=== PATIENT | female | born 1970 | race Caucasian/White ===

== ENCOUNTER 2024-09-02 08:09 | Outpatient (OUT) | payer OTHER, SELFPAY ==
[2024-09-02 09:05] LABS: Basophils Percent Auto 0.3 % (0.2-2.0); Eosinophils Absolute Auto 0.1 10^3/uL (0.0-0.7); Eosinophils Percent Auto 1.6 % (0.9-7.0); Hematocrit 36.2 % (36.0-48.0); Hemoglobin 11.6 g/dL (12.0-16.0); Immature Granulocytes Abs Auto 0.01 10^3/uL (0.00-0.03); Immature Granulocytes Pct Auto 0.1 % (0.0-0.5); Lymphocytes Absolute Auto 0.8 10^3/uL (1.2-3.8); Mean Corpuscular Hemoglobin 27.9 pg (26.7-34.0); Mean Platelet Volume 9.8 fL (9.5-13.5); Monocytes Absolute Auto 0.6 10^3/uL (0.3-0.8); Monocytes Percent Auto 8.2 % (1.7-12.0); Neutrophils Absolute Auto 5.5 10^3/uL (1.4-6.5); Neutrophils Percent Auto 78.8 % (43.0-75.0); Platelet Count 250 10^3/uL (150-450); Red Blood Count 4.16 10^6/uL (4.20-5.40); Red Cell Distribution Width 12.1 % (11.0-15.0)
[2024-09-02 09:17] LABS: Anion Gap 12.4; BUN Creatinine Ratio 15.4; Calcium 8.8 mg/dL (8.5-10.1); Carbon Dioxide 27.8 mmol/L (21.0-32.0); Chloride 103 mmol/L (98-107); Estimated GFR (African America >60 (>=60 mL/min/1.73m^2); Estimated GFR (Non-African Ame >60 (>=60 mL/min/1.73m^2); Potassium 4.2 mmol/L (3.5-5.1); Sodium 139 mmol/L (136-145)
[2024-09-02 09:21] LABS: INR 0.93; Partial Thromboplastin Time 24.6 sec (22.3-36.2); Prothrombin Time 9.9 sec (9.0-11.6)
[2024-09-02 09:22] LABS: Glucose 100 mg/dL (74-106)
--- NOTE | 2024-09-02 09:56 | P.GSHP_ITS ---
History of Present Illness History of Present Illness Chief complaint: right UPJ Stone Narrative: Lolita Lindsey is a 54-year-old female presents to presurgical testing with intermittent complaints of right flank pain she is scheduled with Dr. Herr for right ureteral stone ESWL on September 18, 2024 Review of Systems ROS Narrative REVIEW OF SYSTEMS: Negative except as stated in HPI, ten or more systems reviewed. Constitutional: No fever, chills, weakness ENT: No sore throat or epistaxis Cardiovascular: No edema, chest pain, palpitations, or activity intolerance Respiratory: No shortness of breath, cough, or wheezing Musculoskeletal: No joint pain or swelling Gastrointestinal: No abdominal pain, constipation, diarrhea, or vomiting Genitourinary: No dysuria or hematuria intermittent right flank pain Neurological: No numbness, tingling, weakness, or headache Psychiatric: No mood changes PFSH PFSH Medical History (Updated 09/02/24 @ 10:00 by Zakia De Souza) Arm fracture, left ?S42.302A - Unspecified fracture of shaft of humerus, left arm, initial encounter for closed fracture (ICD-10) Narcolepsy ?G47.419 - Narcolepsy without cataplexy (ICD-10) Breast cancer ?C50.919 - Malignant neoplasm of unspecified site of unspecified female breast (ICD-10) Depression ?F32.A - Depression, unspecified (ICD-10) Anxiety ?F41.9 - Anxiety disorder, unspecified (ICD-10) Kidney stones ?N20.0 - Calculus of kidney (ICD-10) Seasonal allergies ?J30.2 - Other seasonal allergic rhinitis (ICD-10) Hearing loss ?H91.90 - Unspecified hearing loss, unspecified ear (ICD-10) Constipation ?K59.00 - Constipation, unspecified (ICD-10) Heartburn ?R12 - Heartburn (ICD-10) GERD (gastroesophageal reflux disease) ?K21.9 - Gastro-esophageal reflux disease without esophagitis (ICD-10) High cholesterol ?E78.00 - Pure hypercholesterolemia, unspecified (ICD-10) Surgical History (Updated 09/02/24 @ 09:02 by Zakia De Souza) History of arthroscopy of right shoulder ?Z98.890 - Other specified postprocedural states (ICD-10) History of lumpectomy of right breast ?Z98.890 - Other specified postprocedural states (ICD-10) Hx of breast biopsy ?Z98.890 - Other specified postprocedural states (ICD-10) History of colonoscopy ?Z98.890 - Other specified postprocedural states (ICD-10) History of arthroscopy of left shoulder ?Z98.890 - Other specified postprocedural states (ICD-10) History of kyphoplasty ?Z98.890 - Other specified postprocedural states (ICD-10) Family History (Updated 09/02/24 @ 08:41 by Zakia De Souza) Other Family history of Alzheimer's disease Family history of colon cancer Family history of diabetes mellitus Family history of heart disease Family history of hypertension Family history of lung cancer Family history of myocardial infarction Family history of stroke Social History (Updated 09/02/24 @ 08:30 by Zakia De Souza) Within the past year, how often did you have a drink containing alcohol: never Score interpretation: A score less than 3 is consistent with normal alcohol consumption. 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 Highest level of school completed/degree received: some college, no degree Meds Home Medications and Allergies Home Medications ?Medication ?Instructions ?Recorded ?Confirmed ?Type armodafinil 250 mg tablet 250 mg PO DAILY 09/02/24 09/02/24 History atorvastatin 20 mg tablet 20 mg PO DAILY 09/02/24 09/02/24 History cholecalciferol (vit D3) 137.5 mcg 1 tab PO DAILY 09/02/24 09/02/24 History (5,500 unit)-vit K2 200 mcg tablet (DosoKap) famotidine 20 mg tablet 20 mg PO DAILY 09/02/24 09/02/24 History fluoxetine 10 mg capsule 10 mg PO DAILY 09/02/24 09/02/24 History potassium chloride 10 mEq 10 meq PO DAILY 09/02/24 09/02/24 History tablet,extended release(part/cryst) Allergies Allergy/AdvReac Type Severity Reaction Status Date / Time codeine Allergy Mild rash Verified 09/02/24 08:58 pravastatin (From Pravachol) Allergy Mild Muscle Pain Verified 09/02/24 08:58 Exam Narrative Exam Narrative: Constitutional: Awake, alert, comfortable, well-appearing, nontoxic, interactive, vital signs as charted Head: Normocephalic, atraumatic Eyes: Conjunctiva and lids normal to inspection, pupils normal ENT: Tympanic membranes pearly avendaño, nonerythematous, noninjected, naris patent, posterior oropharynx clear, oral mucosa moist Neck: Supple, normal appearance, normal range of motion, no meningeal signs, no lymphadenopathy Respiratory: No respiratory distress, breath sounds clear Cardiovascular: Regular rate and rhythm, strong and regular heart tones Abdomen: Nontender, normal bowel sounds, soft, no CVA tenderness Musculoskeletal: Normal gait, no swelling or edema Skin: No rashes or induration, no lesions, only visible skin inspected Neuro: No neurological deficits, normal sensation Psychiatric: Oriented ?3, normal affect Assessment and Plan Assessment and Plan (1) Right ureteral stone: Plan Right ureteral stone plan is for right ESWL with Dr. Herr scheduled on September 18, 2024
== END 2024-09-02 08:10 | disposition home or self-care (01) ==
LOC: PST 08:10
PROVIDERS: PCP Family Medicine; Visit Provider Urology
DX: Z01.812 Encounter for preprocedural laboratory examination (principal); Z01.818 Encounter for other preprocedural examination; N20.1 Calculus of ureter
CPT/HCPCS: 80048; 85025; 85610; 85730; G0463

== ENCOUNTER 2024-09-18 06:59 | Day surgery (SDC) | payer OTHER, SELFPAY ==
[2024-09-02 08:37] VITALS: BP 105/65; PULSE 93; TEMP 36.5; O2SAT 99; BMI 19.1
[2024-09-18] VITALS (10 sets, daily range): BP systolic 113–125; BP diastolic 69–83; PULSE 70–104; TEMP 36.4–36.6; O2SAT 91–100; BMI 18.7
--- OUTSIDE RECORDS SUMMARY | 2024-09-18 07:02 | XMS_ITS | CCD ---
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 Comment on above: Performed By: #### 2 [id number] #### [facility] [address] [place] [address] Platelets (Bld) [#/Vol] 251.0 E9/L Normal 150.0-500.0 [facility] Comment on above: Performed By: #### 2 [id number] #### [facility] [address] [place] [address] RBC (Bld) [#/Vol] 4.5 E12/L Normal 4.3-5.9 [facility] Comment on above: Performed By: #### 2 [id number] #### [facility] [address] [place] [address] WBC corrected for nucl RBC Auto (Bld) [#/Vol] 12.3 E9/L High 4.0-11.0 [facility] Comment on above: Performed By: #### 2 [id number] #### [facility] [address] [place] [address] ED Clinical Summaryon 2024 ED Clinical Summary ED Clinical Summary [address] [address] ED Clinical Summary Person Information Name: EVE LINDSEY Malena/[facility] Age: 54 Years : 1970 Sex: Female Language: New Zealander PCP: Rell Barbosa DO Marital Status: Visit Id: Visit Reason: Nausea; Chills; Back pain; LOWER BACK AND SIDE PAIN CHILLS Speciality: Acuity: 3 Enc Type: Emergency Med Service: Emergency Arrival: 09/08/2024 03:55:54 Discharge: 09/08/2024 06:42:36 LOS: 000 02:47 Checkin: 09/08/2024 03:55:54 Checkout: 09/08/2024 06:42:36 Dispo Type: Home (Routine DC) EVENTS: Event Name Event Status Request Date/Time Start Date/Time Complete Date/Time Arrive Complete 09/08/2024 03:55:54 09/08/2024 03:55:54 09/08/2024 03:55:54 Document Home Meds Request 09/08/2024 03:55:54 Triage Complete 09/08/2024 03:55:54 09/08/2024 04:06:16 09/08/2024 04:06:16 Registration Complete 09/08/2024 03:59:57 09/08/2024 03:59:57 09/08/2024 03:59:57 Reg Complete Request 09/08/2024 03:59:57 Reg Bed Request Complete 09/08/2024 03:59:57 09/08/2024 03:59:57 09/08/2024 03:59:57 Dr Exam Complete 09/08/2024 04:00:28 09/08/2024 04:00:28 09/08/2024 04:00:28 Registration Start 09/08/2024 04:00:28 09/08/2024 04:06:57 Bed Assign Complete 09/08/2024 04:06:57 09/08/2024 04:06:57 09/08/2024 04:06:57 RN Exam Complete 09/08/2024 04:06:57 09/08/2024 04:15:58 09/08/2024 04:15:58 Pending Labs Complete 09/08/2024 04:11:31 09/08/2024 06:31:30 Lab Complete 09/08/2024 04:11:31 09/08/2024 05:29:37 X-Ray Complete 09/08/2024 04:18:41 09/08/2024 04:52:01 09/08/2024 05:03:34 Meds Admin Complete 09/08/2024 04:18:41 09/08/2024 04:28:49 Wet Read Request 09/08/2024 05:03:34 Pending Labs Complete 09/08/2024 05:06:36 09/08/2024 05:06:36 09/08/2024 05:29:37 Lab Complete 09/08/2024 05:06:36 09/08/2024 05:06:36 09/08/2024 05:29:37 Meds Admin Cancel 09/08/2024 05:33:59 09/08/2024 05:36:33 Meds Admin Complete 09/08/2024 05:36:33 09/08/2024 05:42:26 Pending Labs Complete 09/08/2024 06:17:47 09/08/2024 06:17:47 09/08/2024 06:17:47 Discharge Complete 09/08/2024 06:36:05 09/08/2024 06:43:43 09/08/2024 06:43:43 Transfer Complete 09/08/2024 06:43:43 09/08/2024 06:43:43 09/08/2024 06:43:43 ADDRESS: [address] [place] [phone] PHYS DOC NOTES: MEDICAL INFORMATION: Prescriptions Given: New Medications [id number], [address] [place], [place] [id number], [phone] oxycodone (oxyCODONE 5 mg Tab) 1 Tablets By Mouth every 6 hours as needed for pain for 3 Days. Refills: 0. tamsulosin (Flomax 0.4 mg Cap) 1 Capsules By Mouth every day. Refills: 0. Medications to Continue Taking That Have Changed [facility]? [facility]ORE #[id number], [address] [place], [place] [id number], [phone] START: ondansetron (Zofran ODT 4 mg Tab-Dis) 1 Tablets By Mouth every 6 hours. Refills: 0. Other Medications START: ondansetron (Zofran 8 mg Tab) 1 Tablets By Mouth every 8 hours. Refills: 1. Medications to Continue with No Changes Other Medications armodafinil (armodafinil 250 mg oral tablet) 1 Tablets. atorvastatin (Lipitor 20 mg Tab) 1 Tablets By Mouth once a day (at bedtime). Refills: 3. famotidine (famotidine 20 mg Tab) 1 Tablets. fluoxetine (FLUoxetine 10 mg Cap) Misc Prescription (cephalexin (Keflex 500 mg Cap)) 1 Capsules every 6 hours. multivitamin (Dosokap oral tablet) naproxen (naproxen 500 mg Tab) 1 Tablets By Mouth 2 times a day. potassium chloride (potassium chloride 10 mEq Cap-ER) 2 Capsules By Mouth every day. Refills: 1. PATIENT EDUCATION INFORMATION: Instructions: Kidney Stones, [id number]-Bbjv Follow up: With: Address: When: Paul CABRERA [address] [place] [id number] Business (1) In 3 days 09/11/2024 Comments: Take the Flomax once daily can use the pain medication, nausea medication as prescribed as needed for pain and nausea. Please reach out to Dr. Cabrera office to see if they can possibly move your procedure up. Please return to the ED if your symptoms worsen or if your pain becomes uncontrollable. With: Address: When: Rell Barbosa [facility] Daren Brown, Janel , [facility] [address] [place] [address] Business (1) In 3 days DIAGNOSIS: Renal colic on right side Normal [facility] ED Note-Physicianon 09-08-19 ED Note-Physician ED Note-Physician Basic Information Time Seen: Caitlin Adame DO 09/08/2024 04:00 Chief Complaint Pt. reports pain from know kidney stone. She stated she took tylenol for pain but has norco at home from previous ED visit Jul 9. Pt. states she is scheduled for surgery next week but could not tolerate the pain. Pt. also reports chills that started today History of Present Illness Patient is a 54-year-old female with past medical history of hyperlipidemia, breast cancer, right ureteral stone presenting to the ED for evaluation of right flank pain. Patient states the pain started flaring up tonight took Tylenol however did not take the [place] that she has at home for the kidney stone pain she is was told she cannot take these 2 together. Patient states she is scheduled for a surgery next week for removal of the stone with Dr. Cabrera. Patient also is complaining of some chills. Denies any nausea, chest pain, dizziness or lightheadedness. Review of Systems A 10 point review of systems is negative except as noted above. Medical and Surgical History: Reviewed and noted Social history: Lives at home Tobacco: Denies Physical Exam Vitals & Measurements T: 36.5 ???C(Oral) HR: 87(Peripheral) RR: 18 BP: 115/71 SpO2: 98% HT: 149 cm WT: 42.6 kg BMI: 19.19 General: Well developed, non toxic appearing, no acute distress HEENT: Head atraumatic, Mucosa moist, hearing grossly normal Neck: No JVD, tracheal deviation Cardiac: Regular rate, rhythm, no murmurs, or gallops, 2+ radial pulses Respiratory: Lungs clear to auscultation B/L, normal respiratory effort Abdomen: Soft non tender, no rebound or guarding, no peritoneal signs right CVA tenderness Extremities: No edema noted in the LE B/L, no tenderness to palpation Neurologic: Alert and oriented, speech clear Skin: No rashes or lesions Psych: Appropriate mood and behavior Medical Decision Making MEDICAL DECISION MAKING Number and Complexity of Problems Differential Diagnosis: [] [facility] Data External documents reviewed: [] My EKG interpretation: [] My CT interpretation: [] My X-ray interpretation: [] My Ultrasound interpretation: [] Decision rules/scores evaluated: [] Discussed with: [] Treatment and Disposition ED Course: Patient is a 54-year-old female presenting to the ED for evaluation of right flank pain. Patient is nontoxic and on arrival, no acute distress. Due to her complaints laboratory evaluation is obtained, abdominal x-ray is ordered to evaluate for location of stone. Patient is given morphine, Zofran in the ED for her symptoms. Patient's laboratory evaluation reveals slight leukocytosis of 12.3 otherwise is unremarkable, urinalysis without signs of infection. Patient continued complain of pain after morphine is given Toradol with improvement of her symptoms. I did offer admission for possible procedure today versus discharge home patient states she would prefer to go home. She is advised to reach out to Dr. Cabrera office to see if the procedure can be moved forward. She is to return to the ED for any new or worsening symptoms. She is discharged home with oxycodone, Flomax, Zofran. Shared decision making: [] Code status: [] Assessment/Plan Renal colic on right side (N23: Unspecified renal colic) Ordered: oxycodone, 5 mg = 1 tab(s), Oral, q6hr, PRN for pain, X 3 day(s), # 10 tab(s), Refills(s) 0, Pharmacy: [facility] #[id number], 149, cm, 09/08/24 4:08:00 EST, Height/Length Dosing, 42.6, kg, 09/08/24 4:08:00 EST, Weight Dosing Orders: ketorolac, 30 mg = 1 mL, Injection, IntraMuscular, Once, Stop date 09/08/24 5:36:00 EST, STAT, Start date 09/08/24 5:36:00 EST, 09/08/24 5:36:00 EST morphine, 4 mg = 1 mL, Injection, IntraMuscular, Once, Stop date 09/08/24 4:17:00 EST, STAT, Start date 09/08/24 4:17:00 EST, 09/08/24 4:17:00 EST ondansetron, 4 mg = 1 tab(s), Tab-Dis, Oral, Once, Stop date 09/08/24 4:18:00 EST, STAT, Start date 09/08/24 4:18:00 EST, 09/08/24 4:18:00 EST ondansetron, 4 mg = 1 tab(s), Oral, q6hr, # 12 tab(s), Refills(s) 0, Pharmacy: [facility] #[id number], 149, cm, 09/08/24 4:08:00 EST, Height/Length Dosing, 42.6, kg, 09/08/24 4:08:00 EST, Weight Dosing tamsulosin, 0.4 mg = 1 cap(s), Oral, Daily, # 10 cap(s), Refills(s) 0, [id number], 149, cm, 09/08/24 4:08:00 EST, Height/Length Dosing, 42.6, kg, 09/08/24 4:08:00 EST, Weight Dosing Basic Metabolic Panel CBC w/ Auto Diff eGFR Extra Blue Tube Extra SST Tube UA with Cult Rflx XR Abdomen 1 View Medications Administered Given ketorolac 60 mg/2 mL Injection, 30 mg, IntraMuscular morphine 4 mg/mL Inj, 4 mg, IntraMuscular Zofran ODT 4 mg Tab-Dis, 4 mg, Oral Disposition Plan Discharge Prescription List Prescriptions Flomax 0.4 mg Cap, 0.4 mg= 1 cap(s), Oral, Daily oxyCODONE 5 mg Tab, 5 mg= 1 tab(s), Oral, q6hr, PRN Zofran ODT 4 mg Tab-Dis, 4 mg= 1 tab(s), Oral, q6hr Follow-up With When Contact Infor (more content not included)... Normal [facility] Comment on above: Result Comment: Elec tronically Signed By: Caitlin Adame DO\.br\Date and Time Signed: 09/08/24 06:37 EST ED Patient Summaryon 025 ED Patient Summary ED Patient Summary [place] [id number] Patient Discharge Instructions Person Information Name: EVE LINDSEY Age: 54 Years Arrival Date: 09/08/2024 03:55:54 Discharge Diagnosis: Renal colic on right side Primary Care Physician: Rell Barbosa DO Provider Information Primary Provider: Caitlin Adame DO Advanced Business Travel Consultant:None The exam and treatment you received in the Emergency Department were for an urgent problem and are not intended as complete care. It is important that you follow up with a doctor, nurse practitioner, or physician???s business services assistant for ongoing care. If your symptoms become worse or you do not improve as expected and you are unable to reach your usual health care provider, you should return to the Emergency Department. We are available 24 hours a day. EVE LINDSEY has been given the following list of patient education materials, prescriptions and follow-up instructions: Follow-up Instructions: With: Address: When: Paul CABRERA [address] [place] [address] [facility] (1) In 3 days 09/11/2024 Comments: Take the Flomax once daily can use the pain medication, nausea medication as prescribed as needed for pain and nausea. Please reach out to Dr. Cabrera office to see if they can possibly move your procedure up. Please return to the ED if your symptoms worsen or if your pain becomes uncontrollable. With: Address: When: Rell Barbosa [address] [place], [place] [address]kaden Brown, [facility], [address] [address] [facility] (1) In 3 days In the event that this physician does not participate in your insurance network, please consult with your insurance company to find a nearby participating provider. Patient Education Materials: Kidney Stones, Rojb-mx-[id number] A MESSAGE TO ALL PATIENTS REGARDING OPIOIDS PRESCRIPTION OPIOIDS: WHAT YOU NEED TO KNOW Prescription opioids can be used to help relieve ywlabfiu-zj-oqzpsa pain and are often prescribed following a surgery or injury, or for certain health conditions. These medications can be an important part of the treatment but also come with serious risks. It is important to work with your healthcare provider to make sure you are getting the safest, most effective care. WHAT ARE THE RISKS AND SIDE EFFECTS OF OPIOID USE? Prescription opioids carry serious risks of addiction and overdose, especially with prolonged use. An opioid overdose, often marked by slowed breathing, can cause sudden . The use of prescription opioids can have a number of side effects as well, even when taken as directed: ??? Tolerance???meaning you might need to take more of the medication for the same pain relief ??? Physical dependence???meaning you have symptoms of withdrawal when a medication is stopped ??? Increased sensitivity to pain ??? Constipation ??? Nausea, vomiting, and dry mouth ??? Sleepiness and dizziness ??? Confusion ??? Depression ??? Low levels of testosterone that can result in lower sex drive, energy, and strength ??? Itching and sweating RISKS ARE GREATER WITH: ??? History of drug misuse, substance use disorder, or overdose ??? Mental health conditions (such as depression or anxiety) ??? Sleep apnea ??? Older age (65 years and older) ??? Avoid alcohol while taking prescription opioids. Also, unless specifically advised by your health care provider, medications to avoid include: ??? Benzodiazepines (such as Xanax or Valium) ??? Muscle relaxants (such as Soma or Flexeril) ??? Hypnotics (such as Ambien or Lunesta) ??? Other prescription opioids KNOW YOUR OPTIONS Talk to your health care provider about ways to manage your pain that don???t involve prescription opioids. Some of these options may actually work better and have fewer risks and side effects. Options may include: ??? Pain relievers such as acetaminophen, ibuprofen, and naproxen ??? Some medication that are also used for depression or seizures ??? Physical therapy and exercise ??? Cognitive behavioral therapy, a psychological, goal-directed approach, in which patients learn how to modify physical, behavioral, and emotional triggers of pain and stress. IF YOU ARE PRESCRIBED OPIOIDS FOR PAIN: ??? Never take opioids in greater amounts or more often than prescribed. ??? Follow up with your primary health care provider. o Work together to create a plan on how to manage your pain. o Talk about ways to help manage your pain that don???t involve prescription opioids. o Talk about any and all concerns and side effects. ??? Help prevent misuse and abuse o Never sell or share prescription opioids. o Never use another person???s prescription opioids. ??? Store prescription opioids in a secure place and out of reach of others (this may include visitors, children, friends, and fami (more content not included)... Normal [facility] Extra Blueon 09-08-2024 Tube Collected Plasma Yes Invalid Interpretation Code [facility] Comment on above: Performed By: #### 1 [id number] #### [facility] [address] [address] UA with Cult Rflxon 09-08-19 25 Bilirubin Ql (U) Negative Normal Negative [facility] Comment on above: Performed By: #### 4 [id number] #### [facility] [address] [place] [address] Clarity (U) Clear Normal Clear [facility] Comment on above: Performed By: #### 4 [id number] #### [facility] [address] [place] [address] Color (U) Light-Yellow Normal Yellow [facility] Comment on above: Result Comment: Micr oscopic readings are only performed on those samples that meet specific criteria set forth by [facility]. Performed By: #### 4 [id number] #### [facility] [address] [place] [address] Glucose Ql (U) Negative Normal Negative [facility] Comment on above: Performed By: #### 4 [id number] #### [facility] [address] [place] [address] Hemoglobin Auto test strip (U) [Mass/Vol] 2+ mg/dL Abnormal Negative [facility] Comment on above: Performed By: #### 4 [id number] #### [facility] [address] [place] [address] Ketones Auto test strip Ql (U) 1+ mg/dL Abnormal Negative [facility] Comment on above: Performed By: #### 4 [id number] #### [facility] [address] [place] [address] Leukocyte esterase Auto test strip Ql (U) Negative Normal Negative [facility] Comment on above: Performed By: #### 4 [id number] #### [facility] [address] [place] [address] Mucus Auto Ql (U) Trace Normal Negative [facility] Comment on above: Performed By: #### 4 [id number] #### [facility] [address] [place] [address] Nitrite Auto test strip Ql (U) Negative Normal Negative [facility] Comment on above: Performed By: #### 4 [id number] #### [facility] [address] [place] [address] pH (U) 5.5 [pH] Invalid Interpretation Code 5.0-9.0 [facility] Comment on above: Performed By: #### 4 [id number] #### [facility] [address] [place] [address] Protein Ql (U) Negative Normal Negative [facility] Comment on above: Performed By: #### 4 [id number] #### [facility] [address] [place] [address] RBC Ql (U) >75 Abnormal 0-3 [facility] Comment on above: Performed By: #### 4 [id number] #### [facility] [address] [place], [place] [id number] Specific gravity (U) [Rel density] 1.020 Invalid Interpretation Code 1.005-1.030 [facility] Comment on above: Performed By: #### 4 [id number] #### [facility] [address] [place], [place] [id number] Urobilinogen (U) [Mass/Vol] Negative Normal Negative [facility] Comment on above: Performed By: #### 4 [id number] #### [facility] [address] [place], [place] [id number] WBC Auto (Urine sed) [#/Area] 0-5 Normal 0-5 [facility] Comment on above: Performed By: #### 4 [id number] #### [facility] [address] [place], [place] [address] Type of Urine collection method Clean Catch Normal [facility] Comment on above: Performed By: #### 4 [id number] #### [facility] [address] [place] [address] XR Abdomen 1 Viewon 09-08-19 XR Abdomen 1 View Exam Date/Time: 09/08/2024 05:03 EST Reason for Exam: R ureteral stone;Kidney stone Report IMPRESSION: RIGHT URETERAL CALCULUS. CHOLELITHIASIS. L1 KYPHOPLASTY. CLINICAL HISTORY: Kidney stone, R ureteral stone COMPARISON: CT abdomen pelvis, 07/21/2024. KUB, 08/11/2024. FINDINGS: Gas and stool in colon. Gas in small bowel. No focal or diffuse small bowel dilatation no mass effect. L1 kyphoplasty. Calculus in gallbladder. Previously visualized calculus overlying right L3 transverse process has migrated inferiorly, and now overlies right ischium. Ordering Provider: Caitlin Adame FINAL REPORT Dictated: 09/08/2024 10:46 am Imtiaz Escobedo MD Signed (Electronic Signature): 09/08/2024 10:46 am Signed by: Imtiaz Escobedo MD Transcribed by: DAQUAN Technologist: ALISON Technical Comments Radiation Dose: Ka,r in mGy = na DAP = na Normal [facility] eGFRon 09-08-2024 eGFR 88 mL/min/1.73 m2 Normal >=59 [facility] Comment on above: Performed By: #### 1 [id number] #### [facility] [address] [place] [address] Pulmonary Function Studieson 09-01-2024 Pulmonary Function Studies Pulmonary Function Studies PULMONARY FUNCTION TEST: 08/27/2024 REQUESTING PROVIDER: Rell Barbosa D.O. REASON FOR TESTING: Shortness of breath. Spirometry results are acceptable and reproducible. FVC was 2.29 liters or 90% of predicted. FEV1 was 1.78 liters or 85% of predicted with a ratio of 78%. There was no significant change with the administration of bronchodilators. Lung volumes showed a total lung capacity of 81% of predicted, residual volume of 89% of predicted with a ratio of 34%. Diffusion capacity for carbon monoxide was 69% of predicted and when adjusted to alveolar volume at 72% of predicted. IMPRESSION: Pulmonary function test results are suggestive of a mild degree of restrictive lung disease with a mild decrease in the diffusion capacity. This can be seen in intrinsic lung disease such as pulmonary fibrosis. Clinical correlation is recommended. READ BY: Dain Mcgregor M.D. ca Dictated: 08/28/2024 [id number] Transcribed: 08/31/2024 cc:Rell Barbosa D.O. Normal [facility] Comment on above: Result Comment: Elec tronically Signed By: Balbir HENRY, Dain Hearn\.br\Date and Time Signed: 09/01/24 09:13 EST ED Note-Physicianon 08-23-19 ED Note-Physician ED Note-Physician Basic Information Time Seen: Ari KIRKLAND, Eve Estefania. 08/21/2024 10:11 Chief Complaint pt has had multiple falls in the past couple of days d/t the weather. pt denies thinners. pt c/o right foot and right hip pain. History of Present Illness Patient is a 54-year-old female with a history of urolithiasis, GERD, and hyperlipidemia who presents to the ED with foot and hip pain that occurred following numerous mechanical falls within the past 3 days. Patient states each of these falls have been mechanical as she is slipping on ice and snow while walking out of her house. She states each time she has landed on her right hip. Patient denies hitting her head or loss of consciousness. She states she has been able to get up from each of these falls by herself without assistance. She denies any prolonged periods of laying in the snow. Patient states outside of the snow, the patient has not had any falls. Patient denies neck pain, back pain, chest pain, changes in vision, or shortness of breath. She states she is scheduled to have a right ESWL next month for a ureteral stone. Review of Systems A 10 point review of systems is negative except as noted above. Medical and Surgical History: Reviewed and noted Social history: Lives at home Family History: Reviewed. Tobacco: Denies Physical Exam Vitals & Measurements T: 36.7 ???C(Oral) HR: 87(Peripheral) RR: 18 BP: 118/69 SpO2: 99% HT: 149.8 cm WT: 44.7 kg BMI: 19.92 Nurses note and vital signs reviewed and noted. General: The patient appears well and in no apparent distress. Patient is resting comfortably on cart. GCS = 15. Skin: Warm, dry, no pallor noted. Head: Normocephalic, atraumatic Neck: Supple, trachea mid-line, no tenderness, no lymphadenopathy. No cervical spinal tenderness. The patient has no step-offs or crepitus noted Eyes: PERRLA, EOMI ENT: No coello sign, no raccoon eyes, no blood in posterior oropharynx, no dental injuries Cardiovascular: Regular Rate and Rhythm, normal peripheral perfusion Respiratory: no distress, no accessory muscle use, no obvious wheezing Chest Wall: no tenderness, no flail chest, contusion, abrasion, or signs of trauma. Back: Back has no evidence of trauma, including contusion, abrasion, swelling or ecchymosis. The patient had no evidence of step-offs or crepitus noted. No tenderness to palpation. Musculoskeletal: normal ROM, tenderness to palpation to the right second, third, and fourth toes with ecchymosis to the proximal dorsal aspects, limited flexion and extension of these toes secondary to pain, no swelling. Neurovascularly intact. Moves all four extremities in all modalities with 5/5 strength. GI: Soft, no tenderness to palpation, no masses appreciated. No rebound, guarding, or rigidity noted. 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 Psychiatric: Cooperative Medical Decision Making Patient is a 54-year-old female with a history of urolithiasis, GERD, and hyperlipidemia who presents to the ED with foot and hip pain that occurred following numerous mechanical falls within the past 3 days. Patient is hemodynamically stable and afebrile. She denies the need for pain medication. EKG shows sinus rhythm without ischemic changes. While the patient states these falls have all been mechanical secondary to the snow/ice, lab work is obtained to rule out other etiologies as there have been multiple falls. Lab work is reviewed and does not show any significant changes from baseline aside from a potassium of 3.2. She is given oral potassium in the ED. hip/pelvic does not show any acute osseous abnormalities. Chest x-ray and right foot x-ray interpreted by myself do not show any acute abnormalities. Patient was updated on the results. She is given a postop shoe for comfort. I discussed disposition with the patient who felt comfortable being discharged home. Patient was educated on falling precautions. She denies the need for pain medication. She will call to schedule a follow-up appoint with her primary care provider next 2 to 3 days. She was advised to return to the ED with any new or worsening symptoms. Patient is agreeable with the plan and all questions were answered. Assessment/Plan Accidental fall (W19.XXXA: Unspecified fall, initial encounter) Acute pain of right hip (M25.551: Pain in right hip) Sprain of fourth toe of right foot, (S93.504A: Unspecified sprain of right lesser toe(s), initial encounter)Sprain of second toe of right foot, (S93.504A: Unspecified sprain of right lesser toe(s), initial encounter)Sprain of third toe, right Orders: potassium chloride, 20 mEq = 1 tab(s), Tab-ER, Oral, Once, Stop date 08/21/24 11:46:00 EST, STAT, Start date 08/21/24 11:46:00 EST, 08/21/24 11:46:00 EST Apply Post-Op Shoe Basic Metabolic Panel CBC w/ Auto Diff ECG 12 Lead Adult ED Cardiac Monitoring eGFR Extra SST Tube Magnesium Level Oxygen Saturation Oxygen Ther (more content not included)... Normal [facility] Comment on above: Result Comment: Elec tronically Signed By: Eve Chapman PA-C\.br\Date and Time Signed: 08/21/24 19:28 EST\.br\Electronically Co-Signed By: Eve Chapman PA-C\.br\Date and Time Co-Signed: 08/21/24 19:29 EST\.br\Electronically Co-Signed By: Naye Tijerina M.D.\.br\Date and Time Co-Signed: 08/23/24 15:15 EST BMPon 08-21-2024 Anion gap [Moles/Vol] 13 mmol/L Normal 6-16 [facility] Comment on above: Performed By: #### 2 [id number] #### [facility] [address] [place] [address] Calcium [Mass/Vol] 9.2 mg/dL Normal 8.9-11.1 [facility] Comment on above: Performed By: #### 2 [id number] #### [facility] [address] [place] [address] Chloride [Moles/Vol] 106 mmol/L Normal 101-111 [facility] Comment on above: Performed By: #### 2 [id number] #### [facility] [address] [place] [address] CO2 [Moles/Vol] 25 mmol/L Normal 21-31 [facility] Comment on above: Performed By: #### 2 [id number] #### [facility] [address] [place] [address] Creatinine [Mass/Vol] 0.5 mg/dL Normal 0.5-1.3 [facility] Comment on above: Performed By: #### 2 [id number] #### [facility] [address] [place] [address] Glucose [Mass/Vol] 84 mg/dL Normal 55-199 [facility] Comment on above: Performed By: #### 2 [id number] #### [facility] [address] [place] [address] Potassium [Moles/Vol] 3.2 mmol/L Low 3.5-5.3 [facility] Comment on above: Performed By: #### 2 [id number] #### [facility] [address] [place] [address] Sodium [Moles/Vol] 141 mmol/L Normal 135-145 [facility] Comment on above: Performed By: #### 2 [id number] #### [facility] [address] [place] [address] Urea nitrogen [Mass/Vol] 10 mg/dL Normal 5-21 [facility] Comment on above: Performed By: #### 2 [id number] #### [facility] [address] [place] [address] Urea nitrogen/Creatinine [Mass ratio] 20 No Units Normal 10-20 [facility] Comment on above: Performed By: #### 2 [id number] #### [facility] [address] [place] [address] CBC w/ Auto Diffon 5 Basophils/100 WBC (Bld) 0.2 % Normal 0.0-2.0 [facility] Comment on above: Performed By: #### 2 [id number] #### [facility] [address] [place] [address] Basophils/Leukocyte s Auto (Bld) [Pure # fraction] 0.0 E9/L Normal 0.0-0.2 [facility] Comment on above: Performed By: #### 2 [id number] #### [facility] [address] [place] [address] Eosinophils (Bld) [#/Vol] 0.1 E9/L Normal 0.0-0.5 [facility] Comment on above: Performed By: #### 2 [id number] #### [facility] [address] [place] [address] Eosinophils/100 WBC (Bld) 1.4 % Normal 0.0-8.0 [facility] Comment on above: Performed By: #### 2 [id number] #### [facility] [address] [place] [address] Erythrocyte distribution width (RBC) [Ratio] 12.7 % Normal 10.9-14.2 [facility] Comment on above: Performed By: #### 2 [id number] #### [facility] [address] [place] [address] Hematocrit (Bld) [Volume fraction] 35.0 % Normal 34.0-46.0 [facility] Comment on above: Performed By: #### 2 [id number] #### [facility] [address] [place] [address] Hemoglobin (Bld) [Mass/Vol] 11.9 g/dL Low 12.0-16.0 [facility] Comment on above: Performed By: #### 2 [id number] #### [facility] [address] [place] [address] Lymphocytes (Bld) [#/Vol] 0.9 E9/L Low 1.0-4.0 [facility] Comment on above: Performed By: #### 2 [id number] #### [facility] [address] [place] [address] Lymphocytes/100 WBC (Bld) 14.0 % Normal 14.0-50.0 [facility] Comment on above: Performed By: #### 2 [id number] #### [facility] [address] [place] [address] MCH (RBC) [Entitic mass] 28.6 pg Normal 27.0-34.0 [facility] Comment on above: Performed By: #### 2 [id number] #### [facility] [address] [place] [address] MCHC (RBC) [Mass/Vol] 34.1 g/dL Normal 31.4-36.0 [facility] Comment on above: Performed By: #### 2 451001 #### [facility] [address] [place] [address] MCV (RBC) [Entitic vol] 83.9 fL Normal 80.0-100.0 [facility] Comment on above: Performed By: #### 2 [id number] #### [facility] [address] [place] [address] Monocytes (Bld) [#/Vol] 0.5 E9/L Normal 0.2-1.0 [facility] Comment on above: Performed By: #### 2 [id number] #### [facility] [address] [place] [address] Neutrophils (Bld) [#/Vol] 4.7 E9/L Normal 2.0-7.5 [facility] Comment on above: Performed By: #### 2 [id number] #### [facility] [address] [place] [address] Neutrophils/100 WBC (Bld) 76.5 % High 36.0-75.0 [facility] Comment on above: Performed By: #### 2 837192 #### [facility] [address] [place] [address] Platelet 236.0 E9/L Normal 150.0-500.0 [facility] Comment on above: Performed By: #### 2 [id number] #### [facility] [address] [place] [address] Platelet mean volume (Bld) [Entitic vol] 7.8 fL Normal 6.4-10.8 [facility] Comment on above: Performed By: #### 2 [id number] #### [facility] [address] [place] [address] RBC (Bld) [#/Vol] 4.2 E12/L Low 4.3-5.9 [facility] Comment on above: Performed By: #### 2 [id number] #### [facility] [address] [place] [address] WBC corrected for nucl RBC Auto (Bld) [#/Vol] 6.2 E9/L Normal 4.0-11.0 [facility] Comment on above: Performed By: #### 2 [id number] #### [facility] [address] [place] [address] ED Clinical Summaryon 2024 ED Clinical Summary ED Clinical Summary [address] [address] ED Clinical Summary Person Information Name: EVE LINDSEY Malena/[facility] Age: 54 Years : 1970 Sex: Female Language: New Zealander PCP: Rell Barbosa DO Marital Status: Visit Id: Visit Reason: Foot pain-swelling; Hip pain-swelling; Fall; MULTIPLE FALLS THE LAST 2 DAYS, FOOT PAIN, LEG PAIN Speciality: Acuity: 3 Enc Type: Emergency Med Service: Emergency Arrival: 08/21/2024 10:03:03 Discharge: 08/21/2024 13:15:05 LOS: 000 03:12 Checkin: 08/21/2024 10:03:03 Checkout: 08/21/2024 13:15:05 Dispo Type: Home (Routine DC) EVENTS: Event Name Event Status Request Date/Time Start Date/Time Complete Date/Time Arrive Complete 08/21/2024 10:03:03 08/21/2024 10:03:03 08/21/2024 10:03:03 Document Home Meds Request 08/21/2024 10:03:03 Triage Complete 08/21/2024 10:03:03 08/21/2024 10:11:08 08/21/2024 10:11:08 Bed Assign Complete 08/21/2024 10:05:24 08/21/2024 10:05:24 08/21/2024 10:05:24 Dr Exam Complete 08/21/2024 10:05:24 08/21/2024 10:11:38 08/21/2024 10:11:38 RN Exam Complete 08/21/2024 10:05:24 08/21/2024 10:44:03 08/21/2024 10:44:03 Registration Complete 08/21/2024 10:07:15 08/21/2024 10:07:15 08/21/2024 10:07:15 Reg Complete Request 08/21/2024 10:07:15 Reg Bed Request Complete 08/21/2024 10:07:15 08/21/2024 10:07:15 08/21/2024 10:07:15 Registration Request 08/21/2024 10:11:38 Dr Exam Complete 08/21/2024 10:14:12 08/21/2024 10:14:12 08/21/2024 10:14:12 EKG Complete 08/21/2024 10:25:59 08/21/2024 10:49:51 Pending Labs Complete 08/21/2024 10:25:59 08/21/2024 11:53:40 Lab Complete 08/21/2024 10:25:59 08/21/2024 11:13:55 Patient Care Request 08/21/2024 10:25:59 RT Request 08/21/2024 10:25:59 X-Ray Complete 08/21/2024 10:25:59 08/21/2024 10:40:07 08/21/2024 11:20:48 Dr Exam Complete 08/21/2024 10:40:37 08/21/2024 10:40:37 08/21/2024 10:40:37 Pending Labs Complete 08/21/2024 10:49:08 08/21/2024 10:49:08 08/21/2024 11:13:55 Lab Complete 08/21/2024 10:49:08 08/21/2024 10:49:08 08/21/2024 11:13:55 Wet Read Request 08/21/2024 11:20:48 Meds Admin Complete 08/21/2024 11:46:53 08/21/2024 11:56:30 Pending Labs Complete 08/21/2024 12:01:35 08/21/2024 12:01:35 08/21/2024 12:01:36 Patient Care Request 08/21/2024 12:55:32 Discharge Complete 08/21/2024 12:57:31 08/21/2024 13:15:12 08/21/2024 13:15:12 Transfer Complete 08/21/2024 13:15:12 08/21/2024 13:15:12 08/21/2024 13:15:12 ADDRESS: [address] [place] [phone] PHYS DOC NOTES: MEDICAL INFORMATION: Prescriptions Given: Medications to Continue with No Changes Other Medications armodafinil (armodafinil 250 mg oral tablet) 1 Tablets. atorvastatin (Lipitor 20 mg Tab) 1 Tablets By Mouth once a day (at bedtime). Refills: 3. famotidine (famotidine 20 mg Tab) 1 Tablets. fluoxetine (FLUoxetine 10 mg Cap) Misc Prescription (cephalexin (Keflex 500 mg Cap)) 1 Capsules every 6 hours. multivitamin (Dosokap oral tablet) naproxen (naproxen 500 mg Tab) 1 Tablets By Mouth 2 times a day. ondansetron (Zofran 8 mg Tab) 1 Tablets By Mouth every 8 hours. Refills: 1. potassium chloride (potassium chloride 10 mEq Cap-ER) 2 Capsules By Mouth every day. Refills: 1. PATIENT EDUCATION INFORMATION: Instructions: Joint Pain, Dttk-ot-Vrwl Follow up: With: Address: When: Rell Brown, Janel , [address] [address] Business (1) In 3 days 08/24/2024 Comments: Call to schedule a follow-up appointment with your primary care provider. Use Tylenol and ibuprofen as needed for pain management. Return to the ED with any new or worsening symptoms. DIAGNOSIS: Accidental fall; Acute pain of right hip; Sprain of fourth toe of right foot; Sprain of second toe of right foot; Sprain of third toe, right Normal [facility] ED Patient Summaryon 025 ED Patient Summary ED Patient Summary [address] [address] Patient Discharge Instructions Person Information Name: EVE LINDSEY Age: 54 Years Arrival Date: 08/21/2024 10:03:03 Discharge Diagnosis: Accidental fall; Acute pain of right hip; Sprain of fourth toe of right foot; Sprain of second toe of right foot; Sprain of third toe, right Primary Care Physician: Rell Barbosa DO Provider Information Primary Provider: Naye Tijerina M.D. Advanced Business Travel Consultant:Eve Chapman PA-C The exam and treatment you received in the Emergency Department were for an urgent problem and are not intended as complete care. It is important that you follow up with a doctor, nurse practitioner, or physician???s business services assistant for ongoing care. If your symptoms become worse or you do not improve as expected and you are unable to reach your usual health care provider, you should return to the Emergency Department. We are available 24 hours a day. EVE LINDSEY has been given the following list of patient education materials, prescriptions and follow-up instructions: Follow-up Instructions: With: Address: When: Rell Barbosa [address] [place] [address] Smith Janel , [address] [address] Business (1) In 3 days 08/24/2024 Comments: Call to schedule a follow-up appointment with your primary care provider. Use Tylenol and ibuprofen as needed for pain management. Return to the ED with any new or worsening symptoms. In the event that this physician does not participate in your insurance network, please consult with your insurance company to find a nearby participating provider. Patient Education Materials: Joint Pain, Tjsz-dl-Ewpu A MESSAGE TO ALL PATIENTS REGARDING OPIOIDS PRESCRIPTION OPIOIDS: WHAT YOU NEED TO KNOW Prescription opioids can be used to help relieve ugqkafdn-kp-aeoptq pain and are often prescribed following a surgery or injury, or for certain health conditions. These medications can be an important part of the treatment but also come with serious risks. It is important to work with your healthcare provider to make sure you are getting the safest, most effective care. WHAT ARE THE RISKS AND SIDE EFFECTS OF OPIOID USE? Prescription opioids carry serious risks of addiction and overdose, especially with prolonged use. An opioid overdose, often marked by slowed breathing, can cause sudden . The use of prescription opioids can have a number of side effects as well, even when taken as directed: ??? Tolerance???meaning you might need to take more of the medication for the same pain relief ??? Physical dependence???meaning you have symptoms of withdrawal when a medication is stopped ??? Increased sensitivity to pain ??? Constipation ??? Nausea, vomiting, and dry mouth ??? Sleepiness and dizziness ??? Confusion ??? Depression ??? Low levels of testosterone that can result in lower sex drive, energy, and strength ??? Itching and sweating RISKS ARE GREATER WITH: ??? History of drug misuse, substance use disorder, or overdose ??? Mental health conditions (such as depression or anxiety) ??? Sleep apnea ??? Older age (65 years and older) ??? Avoid alcohol while taking prescription opioids. Also, unless specifically advised by your health care provider, medications to avoid include: ??? Benzodiazepines (such as Xanax or Valium) ??? Muscle relaxants (such as Soma or Flexeril) ??? Hypnotics (such as Ambien or Lunesta) ??? Other prescription opioids KNOW YOUR OPTIONS Talk to your health care provider about ways to manage your pain that don???t involve prescription opioids. Some of these options may actually work better and have fewer risks and side effects. Options may include: ??? Pain relievers such as acetaminophen, ibuprofen, and naproxen ??? Some medication that are also used for depression or seizures ??? Physical therapy and exercise ??? Cognitive behavioral therapy, a psychological, goal-directed approach, in which patients learn how to modify physical, behavioral, and emotional triggers of pain and stress. IF YOU ARE PRESCRIBED OPIOIDS FOR PAIN: ??? Never take opioids in greater amounts or more often than prescribed. ??? Follow up with your primary health care provider. o Work together to create a plan on how to manage your pain. o Talk about ways to help manage your pain that don???t involve prescription opioids. o Talk about any and all concerns and side effects. ??? Help prevent misuse and abuse o Never sell or share prescription opioids. o Never use another person???s prescription opioids. ??? Store prescription opioids in a secure place and out of reach of others (this may include visitors, children, friends, and family). ??? Safely dispose of unused prescription opioids: Find your community drug take-back program or your ph (more content not included)... Normal [facility] Magnesiumon 08-21-2024 Magnesium [Mass/Vol] 1.8 mg/dL Normal 1.3-2.4 [facility] Comment on above: Performed By: #### 2 [id number] #### [facility] [address] [place] [address] PT & PTTon 08-21-2024 aPTT Coag (PPP) [Time] 30.5 second(s) Normal 25.1-36.5 [facility] Comment on above: Result Comment: Para meter 15 days - 4 weeks 1 - 5 months 6 - 11 months 1 - 5 years 6 - 10 years 11 - 17 years PTT Mean: 35.4 (27.6-45.6) Mean: 33.5 (24.8-40.7) Mean: 32.4 (25.1-40.7) Mean: 31.6 (24.0-39.2) Mean: 31.6 (26.9-38.7) Mean: 31.0 (24.6-38.4) Pediatric Reference ranges were obtained from a study by Kody Wheatley et al. prepared from 1437 samples obtained at 7 different centers using the same coagulation reagent and instrumentation as [facility]. Currently there are no coagulation studies available worldwide for children to 14 days, and no normal ranges. Heparin therapeutic range (represented by Anti-Factor Xa activity of 0.2 - 0.4 U/mL) corresponds to PTT of 56.6 - 109.0 sec. Performed By: #### 1 [id number] #### [facility] [address] [place] [address] INR Coag (PPP) [Relative time] 0.91 {INR} Invalid Interpretation Code [facility] Comment on above: Result Comment: INR results are specifically intended to assess patients stabilized on long-term Anticoagulation therapy suggested INR???s ???Less Intensive Anticoagulation??? 2.0 ??? 3.0 Conventional Range 3.0 ??? 4.5 Performed By: #### 1 [id number] #### [facility] [address] [place] [address] PT Coag (PPP) [Time] 10.2 second(s) Normal 9.4-12.5 [facility] Comment on above: Result Comment: 15 d ays - 4 weeks 1 - 5 months 6 -11 months 1- 5 years 6-10 years 11 -17 years Mean: 11.2 (9.5-12.6) Mean: 11.0 (9.7-12.8) Mean: 11.0 (9.8-13.0) Mean: 11.3 (9.9-13.4) Mean: 11.7 (10.0-14.6) Mean: 11.8 (10.0 - 14.1) Pediatric Reference ranges were obtained from a study by neeraj Roque al. prepared from 1437 samples obtained at 7 different centers using the same coagulation reagent and instrumentation as [facility]. Currently there are no coagulation studies available worldwide for children to 14 days, and no normal ranges. Performed By: #### 1 [id number] #### [facility] [address] [place] [address] Troponin 0 Hr.on 08-21-2024 Troponin HS 4.80 pg/mL Low 10.10-27.10 [facility] Comment on above: Result Comment: The 95% CI (Confidence Interval) PPV (Positive Predictive Value) for myocardial infarction in females is 38 pg/mL, in males 51 pg/mL. The results should be used in conjunction with clinical conditions of myocardial infarction. (Access High Sensitivity Troponin I Instructions For Use, Julia [place], March 2018) Performed By: #### 1 [id number] #### [facility] [address] [place] [address] XR Chest Single Viewon 08-21 XR Chest Single View Exam Date/Time: 08/21/2024 11:19 EST Reason for Exam: Chest pain Report IMPRESSION: NO RADIOGRAPHIC EVIDENCE OF ACUTE INTRATHORACIC PROCESS. EXAM: XR Chest Single View History: Chest pain Technique: Portable AP view of the chest. Comparison: 03/24/2021 Findings: The cardiomediastinal silhouette is within normal limits. No pneumothorax, pleural effusion, or consolidation. Hyperinflation of the lungs and increased bronchovascular markings suggesting COPD. No acute osseous abnormality. Ordering Provider: Eve Chapman FINAL REPORT Dictated: 08/21/2024 2:39 pm Liu Borrero DO Signed (Electronic Signature): 08/21/2024 2:39 pm Signed by: Liu Borrero DO Transcribed by: DAQUAN Technologist: AO Technical Comments Radiation Dose: Ka,r in mGy = . DAP = . Normal [facility] XR Foot 3+ Views Righton XR Foot 3+ Views Right Exam Date/Time: 08/21/2024 11:20 EST Reason for Exam: Fall Report IMPRESSION: NO ACUTE OSSEOUS ABNORMALITY. EXAM: XR Foot 3+ Views Right COMPARISON: None available HISTORY: Foot pain TECHNIQUE: AP, lateral and oblique views of the foot obtained. FINDINGS: No acute fracture or dislocation. Joint spaces are preserved. Soft tissues are within normal limits. Ordering Provider: Eve Chapman FINAL REPORT Dictated: 08/21/2024 2:37 pm Liu Borrero DO Signed (Electronic Signature): 08/21/2024 2:37 pm Signed by: Liu Borrero DO Transcribed by: DAQUAN Technologist: AO Technical Comments Radiation Dose: Ka,r in mGy = . DAP = . Normal [facility] XR Hip 2-3 Views Right + Pel vison 08-21-2024 XR Hip 2-3 Views Right + Pelvis Exam Date/Time: 08/21/2024 11:15 EST Reason for Exam: Fall Report IMPRESSION: NO ACUTE OSSEOUS ABNORMALITY. EXAMINATION: XR Hip 2-3 Views Right + Pelvis HISTORY: Hip pain COMPARISONS: None available TECHNIQUE: Frontal view of the pelvis and frontal and lateral views of the hip. FINDINGS: No acute proximal femur fracture. No hip dislocation. Mild degenerative changes of both hips. Visualized bones of the pelvis are within normal limits. Calcified gallstone noted. Soft tissues are within normal limits. Ordering Provider: Eve Chapman FINAL REPORT Dictated: 08/21/2024 12:43 pm Liu Borrero DO Signed (Electronic Signature): 08/21/2024 12:43 pm Signed by: Liu Borrero DO Transcribed by: DAQUAN Technologist: EZEQUIEL Technical Comments Radiation Dose: Ka,r in mGy = . DAP = . Normal [facility] eGFRon 08-21-2024 eGFR 112 mL/min/1.73 m2 Normal >=59 [facility] Comment on above: Performed By: #### 1 [id number] #### [facility] [address] [place] [address] XR Abdomen 1 Viewon 08-13-19 25 XR Abdomen 1 View Exam Date/Time: 08/11/2024 17:03 EST Reason for Exam: Other (please specify) Report IMPRESSION: NO SIGNIFICANT INTERVAL CHANGE OF PROXIMAL RIGHT URETERAL CALCULUS. EXAMINATION: XR Abdomen 1 View HISTORY: Abdominal pain TECHNIQUE: Frontal view of the abdomen and pelvis COMPARISON: 07/26/2024 radiographs FINDINGS: No significant interval change in position of the calculus within the proximal right ureter. Gallstone again noted. Nonobstructive bowel gas pattern. No evidence of free air. No acute osseous abnormality. Ordering Provider: Paul CABRERA FINAL REPORT Dictated: 08/13/2024 12:48 pm Liu Borrero DO Signed (Electronic Signature): 08/13/2024 12:48 pm Signed by: Liu Borrero DO Transcribed by: DAQUAN Technologist: EMILEE Technical Comments Radiation Dose: Ka,r in mGy = NA DAP = NA Normal [facility] Ambulatory Visit Summaryon 1 Ambulatory Visit Summary Ambulatory Visit Summary EVE LINDSEY :1970 Visit Date:08/12/2024 Ambulatory Visit Instructions Your Diagnosis Ureteral stone with hydronephrosis Your Care Team Attending Physician - OLIVIA BANDA PA-C Primary Care Physician - Rell Barbosa DO This Is Your Medications List Misc Prescription (cephalexin (Keflex 500 mg Cap)) armodafinil (armodafinil 250 mg oral tablet) atorvastatin (Lipitor 20 mg Tab) famotidine (famotidine 20 mg Tab) fluoxetine (FLUoxetine 10 mg Cap) multivitamin (Dosokap oral tablet) naproxen (naproxen 500 mg Tab) ondansetron (Zofran 8 mg Tab) potassium chloride (potassium chloride 10 mEq Cap-ER) Procedures Performed Left shoulder joint region arthroscopy (05/18/2023), Removal of implantable venous access port (11/21/2022), Infusion/injection port, implantable (12/10/2020), [place] node biopsy (11/16/2020), Biopsy of breast (10/29/2020), Lumpectomy of right breast (2019), Colonoscopy (07/05/2015), right shoulder arthroscopy with subacromial decompression, partial distal claviculectomy (06/30/2014), Arm fracture..., Laparoscopy. Discharge Vitals Temperature (Oral) 37 ???C Heart Rate (Peripheral) 95 Blood Pressure 88/68 Height 150 cm Height 59 in Weight 43.3 kg Weight 95.46 lb BMI 19.24 What to do next Scheduled Follow-Up Appointments 2024 2:00 PM EDT With: Where: [facility] Sunday 3:00 PM EDT With: Can Solis DO Where: [facility] You Need to Schedule the Following Appointments Follow Up with [facility] When: Comments: For procedure as scheduled. Where: Medications What How Much When Why Instructions Unchanged armodafinil (armodafinil 250 mg oral tablet) 1 Tablets Unchanged atorvastatin (Lipitor 20 mg Tab) 1 Tablets By Mouth Once a day (at bedtime) Unchanged famotidine (famotidine 20 mg Tab) 1 Tablets Unchanged fluoxetine (FLUoxetine 10 mg Cap) Unchanged Misc Prescription (cephalexin (Keflex 500 mg Cap)) 1 Capsules Every 6 hours Unchanged multivitamin (Dosokap oral tablet) See instructions Unchanged naproxen (naproxen 500 mg Tab) 1 Tablets By Mouth 2 times a day Unchanged ondansetron (Zofran 8 mg Tab) 1 Tablets By Mouth Every 8 hours Breast cancer Unchanged potassium chloride (potassium chloride 10 mEq Cap-ER) 2 Capsules By Mouth Every day Allergies Pravachol (muscle aches) codeine (rash) Problems Ongoing - Any problem that you are currently receiving treatment for. Adjustment disorder with mixed anxiety and depressed mood Body mass index (BMI) of 19.0-19.9 in adult Breast cancer, right breast GERD (gastroesophageal reflux disease) Hearing loss Hyperlipidemia Hypokalemia Port-A-Cath in place Ureteral stone with hydronephrosis Historical - Any problem that you are no longer receiving treatment for. BMI 20.0-20.9, adult Breast cancer High risk medication use Patient Survey You may receive a survey via text or e-mail asking about your office visit. Please share your experience with us by completing your survey. We appreciate your feedback and thank you for choosing us for your care. Education Materials Dietary Guidelines to Help Prevent Kidney Stones Kidney stones are deposits of minerals and salts that form inside your kidneys. Your risk of developing kidney stones may be greater depending on your diet, your lifestyle, the medicines you take, and whether you have certain medical conditions. Most people can lower their risks of developing kidney stones by following these dietary guidelines. Your dietitian may give you more specific instructions depending on your overall health and the type of kidney stones you tend to develop. What are tips for following this plan? Reading food labels ??? Choose foods with no salt added or low-salt labels. Limit your salt (sodium) intake to less than 1,500 mg a day. ??? Choose foods with calcium for each meal and snack. Try to eat about 300 mg of calcium at each meal. Foods that contain 200???500 mg of calcium a serving include: ? 8 oz (237 mL) of milk, calcium-fortifiednon- dairy milk, and calcium-fortifiedfrui t juice. Calcium-fortified means that calcium has been added to these drinks. ? 8 oz (237 mL) of kefir, yogurt, and soy yogurt. ? 4 oz (114 g) of tofu. ? 1 oz (28 g) of cheese. ? 1 cup (150 g) of dried figs. ? 1 cup (91 g) of cooked broccoli. ? One 3 oz (85 g) can of sardines or mackerel. Most people need 1,000???1,500 mg of calcium a day. Talk to your dietitian about how much calcium is recommended for you. Shopping ??? Buy plenty of fresh fruits and vegetables. Most people do not need to avoid fruits and vegetables, even if these foods contain nutrients that may contribute to kidney stones. ??? When shopping for convenience foods, choose: ? Whole pieces of fr (more content not included)... Normal [facility] Provider Letteron 08-12-2024 Provider Letter Provider Letter August 12, 2024 [place] [address] : 1970 To Whom It May Concern, Please excuse above patient from work. Date of Illness: From: 08/12/24 To: 08/12/24 May Return to Work On: 08/14/24 Restrictions: none Comments: Patient had an appointment on 08/12/24 with Olivia Banda PA-C Sincerely, Olivia Banda PA-C [facility] Urology Office/Clinic Noteon 08-12-2024 Urology Office/Clinic Note Urology Office/Clinic Note Chief Complaint 2wk F/U w/KUB HPI Staff 54yr old female pt here for 2 week f/u with KUB, & to re-discuss surgical intervention or sooner if needed. KUB done 08/11/24 is still pending for radiology review, but upon my personal review the stone appears unchanged position. Flank pain: very mild, intermittent right flank pain. It's just a twinge, nothing I'd even need to take Tylenol for. Review of Systems PHQ Score Initial Depression Screen Score: 1 SCORE Denies nausea, vomiting, fever, chills, malaise, myalgia. No gross hematuria. Physical Exam Vitals & Measurements T: 37 ???C(Oral) HR: 95(Peripheral) BP: 88/68 HT: 59 in HT: 150 cm WT: 43.3 kg WT: 95.46 lb BMI: 19.24 Nontoxic appearing. Mild R CVA tenderness. Assessment/Plan 1. Ureteral stone with hydronephrosis (N13.2: Hydronephrosis with renal and ureteral calculous obstruction) CT AP wo con 07/21/24 [facility] - 5 mm stone R UPJ and moderate R hydro. No L renal stone. KUB 07/26/24 [facility] - No significant change of ureteral stone. KUB 08/11/24 - pending but stone appears unchanged. UA today shows mod blood and small leuks. Minimal pain. No signs of sepsis. Pt comfortable waiting for first available surgical opening, does not feel she needs urgent treatment. No significant cardiac or pulmonary hx. Not on anticoags. Average surgical risk. Will schedule Right ESWL, possible laser litho/basket extraction/stent placement. The procedure risks, benefits, details and treatment alternatives have been discussed with the patient. These include blood in the urine, infection, bleeding around the kidney, kidney bruising, inability to break up the stone, need for blood transfusion, blockage from stone fragments, and need for additional procedures, among others. Full informed consent has been obtained. Will order General anesthesia. Call or ER for any worsening sx in meantime. ER for fever, intractable vomiting, intolerable pain. Ordered: E&M of Est. Patient Moderate 30-39 Min 98232 Urnls Dip Stick Auto w/o Microscopy POC [id number] Follow-up With When Contact Information [facility] Additional Instructions: For procedure as scheduled. Patient Education Dietary Guidelines to Help Prevent Kidney Stones Problem List/Past Medical History Ongoing Adjustment disorder with mixed anxiety and depressed mood Body mass index (BMI) of 19.0-19.9 in adult Breast cancer, right breast GERD (gastroesophageal reflux disease) Hearing loss Hyperlipidemia Hypokalemia Port-A-Cath in place Ureteral stone with hydronephrosis Historical BMI 20.0-20.9, adult Breast cancer High risk medication use Procedure/Surgical History Left shoulder joint region arthroscopy (05/18/2023), Removal of implantable venous access port (11/21/2022), Infusion/injection port, implantable (12/10/2020), [place] node biopsy (11/16/2020), Biopsy of breast (10/29/2020), Lumpectomy of right breast (2019), Colonoscopy (07/05/2015), right shoulder arthroscopy with subacromial decompression, partial distal claviculectomy (06/30/2014), Arm fracture..., Laparoscopy. Medications armodafinil 250 mg oral tablet, 250 mg= 1 tab(s) cephalexin (Keflex 500 mg Cap), 1 cap(s), q6hr Dosokap oral tablet, See Instructions famotidine 20 mg Tab, 20 mg= 1 tab(s) FLUoxetine 10 mg Cap Lipitor 20 mg Tab, 20 mg= 1 tab(s), Oral, Once a day (at bedtime), 3 refills naproxen 500 mg Tab, 1 tab(s), Oral, BID potassium chloride 10 mEq Cap-ER, 20 mEq= 2 cap(s), Oral, Daily, 1 refills Zofran 8 mg Tab, 8 mg= 1 tab(s), Oral, q8hr, 1 refills Allergies Pravachol (muscle aches) codeine (rash) Social History Alcohol - Denies Alcohol Use, 06/23/2014 Never., 07/23/2024 Substance Abuse - Denies Substance Abuse, 06/23/2014 Never., 07/23/2024 Tobacco - Denies Tobacco Use, 06/23/2014 Never (less than 100 in lifetime) Tobacco Use:. Never Smokeless Tobacco Use:. Household tobacco concerns: No. Yes, 08/12/2024 Family History Diabetes mellitus type 2: Father. Hyperlipidemia: Mother. Hypertension: Father. Primary malignant neoplasm of bladder: Father. Immunizations Vaccine Date Status Comments influenza virus vaccine, inactivated 06/15/2022 Recorded influenza virus vaccine, inactivated - Not Given Patient Refuses diphtheria/pertussis, acel/tetanus adult 05/06/2020 Given influenza virus vaccine, inactivated 06/19/2019 Given influenza virus vaccine, inactivated 05/30/2018 Recorded influenza virus vaccine, inactivated 06/21/2017 Recorded Lab Results Ambulatory Point of Care Results Bilirubin Urine Dipstick: Negative (08/12/24 10:56:00) Blood Urine Dipstick: 2+ Moderate (08/12/24 10:56:00) Glucose Urine Dipstick: Negative (08/12/24 10:56:00) Ketones Urine Dipstick: Negative (08/12/24 10:56:00) Leukocytes Urine Dipstick: 1+ Small (08/12/24 10:56:00) Nitrite Urine Dipstick: Negative (08/12/24 10:56:00) Protein Urine Dipstick: Negative (more content not included)... Normal [facility] Comment on above: Result Comment: Elec tronically Signed By: OLIVIA BANDA PA-C.br\Date and Time Signed: 08/12/24 11:38 EST JALENon 07-31-2024 CNOV Office Visit (RADTMS ) EVE LINDSEY ([id number]) 1970 F Date Time Provider Department 07/31/24 1:00 PM ISHAN PADILLA During your visit today, we recorded the following information about you: Temperature Pulse Blood pressure Weight 99.1 degrees 98/minute 119/82 44.5 kg Ishan Padilla MD 07/31/2024 1:34 PM Signed Radiation Oncology Follow Up Note PATIENT NAME: Eve Lindsey PATIENT DIAGNOSIS: Malignant neoplasm of central portion of right female breast C50.111 53 year old female with infiltrating ductal carcinoma of the Right breast, centrally located, pathologic stage pT2N0 (sn), ER-negative, NE-negative and Her2/pao not amplified, satge IIA, s/p excisional biopsy on 10/29/2020 with sentinel lymph node biopsy on 11/16/2020 (3.5 cm tumor, +grade 3 DCIS, -LVSI) and s/p 4C AC+ 12 cycles of taxol (12/29-05/26/2021). She compleeted radiation treatment to the Right breast, right supraclavicular, axillary and internal mammary nodes 4005 cGy in 15 fractions with a lumpectomy cavity boost of 1200 cGy in 6 fractiions that was completed on 07/25/2021. INTERVAL HISTORY: Eve Lindsey presents for follow up 6 months after we last saw her. The patient denies any other masses, skin changes or nipple discharge. She otherwise feels well with no other complaints. She specifically denies headache, vision changes, bone pain, chest pain, SOB, N/V, or focal neurologic deficits. Most recent mammogram: 01/11/2024 status: Post-menopausal. Air Duct Mechanic offered: Patient declines ROM: Good Recently had issues with kidney stones. ALLERGIES Allergen Reactions Codeine Rash tamsulosin (FLOMAX) 0.4 mg alendronate (FOSAMAX) 70 mg tablet Alendronate Active MG PO November 20, 2023 12:00am (Patient not taking: Reported on 07/31/2024) escitalopram oxalate (LEXAPRO) 10 mg tablet Take 10 mg by mouth once daily. acetaminophen (TYLENOL) 325 mg tablet Take 650 mg by mouth every 6 hours as needed. atorvastatin (LIPITOR) 20 mg tablet atorvastatin 20 mg tablet omeprazole (PRILOSEC) 20 mg capsule Take 40 mg by mouth once daily. potassium chloride (K-TAB) 10 mEq tablet 20 mEq once daily. PHYSICAL EXAM: VS: BP 119/82 Pulse 98 Temp 37.3 ?C (99.1 ?F) (Temporal) Wt 44.5 kg (98 lb 1.7 oz) LMP 12/22/2020 SpO2 100% KPS: 100 General Appearance: Alert and oriented. No acute distress. HEENT: NCAT. Sclera anicteric. PERRL. EOMI. Neck: Normal ROM. No palpable cervical or supraclavicular adenopathy. Chest: No respiratory distress. Lungs clear to auscultation bilaterally. Heart: Regular rate and rhythm. Abdomen: Soft. Nontender. Nondistended. Musculoskeletal: No edema. Normal ROM in extremities. No bone or spine tenderness. Neuro: Speech fluent. Gait normal. No focal deficits. Lymphatics: No palpable lymphadenopathy. Breast: Right breast with surgical scar and smaller than the left breast, otherwise without nipple inversion, skin changes, or dominant masses in either breast. The sensitive examination was discussed with the Patient or Patient's Authorized Specialty Sales Consultant. As applicable, any other physician, advance practice provider, medical student, or other health professional student that will be observing or involved in the sensitive examination for educational or training purposes was discussed with the Patient or Authorized Specialty Sales Consultant. The Patient or Authorized Specialty Sales Consultant has agreed to proceed with the sensitive examination. ASSESSMENT/PLAN: Clinically doing well. We will see her again in 5-6 months for follow-up. Mammogram 12/2024. Continue follow up with Dr. Solis and PCP. -Recommended staying hydrated. Signed by: Ishan Padilla MD cc: Rell Barbosa MD [address] [address] Ishan Resednez MD 07/31/2024 1:33 PM Signed Mammogram 12/2024. Follow up in ~6 months Referring Provider: RELL BARBOSA [[id number]] Allergies As of Date: 07/31/2024 Noted Allergy Reaction CODEINE 08/18/2018 2 - Rash Date Reviewed: 07/31/2024 Reviewed by: Diana Birmingham LPN - Fully Assessed Reason for Visit: Recheck [92] Cmt: Right Breast Primary Visit Diagnosis:Malignant neoplasm of central portion of right breast in female, estrogen receptor negative (HCC) [C50.111, Z17.1] Other Visit Diagnosis:Screening mammogram for breast cancer [Z12.31] Order(s):[facility] [[id number]] Order #: [id number] FUTURE Prescriptions as of 07/31/2024 - tamsulosin (FLOMAX) 0.4 mg - alendronate (FOSAMAX) 70 mg tablet Alendronate Active MG PO November 20, 2023 12:00am - escitalopram oxalate (LEXAPRO) 10 mg tablet Take 10 mg by mouth once daily. - acetaminophen (TYLENOL) 325 mg tablet Take 650 mg by mouth every 6 hours as needed. - atorvastatin (LIPITOR) 20 mg tablet atorvastatin 20 mg tablet (more content not included)... Normal [facility] Ambulatory Visit Summaryon 1 09-28-2023 Ambulatory Visit Summary Ambulatory Visit Summary EVE LINDSEY :1970 Visit Date:07/28/2024 Ambulatory Visit Instructions Your Diagnosis Ureteral stone with hydronephrosis Your Care Team Attending Physician - Paul CABRERA MD Primary Care Physician - Rell Barbosa DO This Is Your Medications List tamsulosin (Flomax 0.4 mg Cap) Contact prescribing physician if questions or concerns Misc Prescription (cephalexin (Keflex 500 mg Cap)) armodafinil (armodafinil 250 mg oral tablet) atorvastatin (Lipitor 20 mg Tab) famotidine (famotidine 20 mg Tab) fluoxetine (FLUoxetine 10 mg Cap) multivitamin (Dosokap oral tablet) naproxen (naproxen 500 mg Tab) ondansetron (Zofran 8 mg Tab) potassium chloride (potassium chloride 10 mEq Cap-ER) Procedures Performed Removal of implantable venous access port (11/21/2022), Infusion/injection port, implantable (12/10/2020), [place] node biopsy (11/16/2020), Biopsy of breast (10/29/2020), Lumpectomy of right breast (2019), Colonoscopy (07/05/2015), right shoulder arthroscopy with subacromial decompression, partial distal claviculectomy (06/30/2014), Arm fracture..., Laparoscopy. Discharge Vitals Temperature (Temporal Artery) 36.9 ???C Heart Rate (Peripheral) 97 Respiratory Rate 16 Blood Pressure 101/67 Height 150 cm Height 59 in Weight 39.2 kg Weight 86.421 lb BMI 17.42 What to do next Scheduled Follow-Up Appointments Sunday 10:40 AM EST With: OLIVIA BANDA PA-C Where: [facility] [address] [place] [address]- Sunday 3:00 PM EDT With: Can Solis DO Where: [facility] You Need to Schedule the Following Appointments Follow Up with DEBORAH HENRY, [facility] When: Where: [facility] [address], [place] [address]- You Need to Complete the Following XR Abdomen 1 View, 07/28/24, Routine, Order for future visit, Transport Mode: Ambulatory, Reason: Other (please specify), Reason: ureteral stone, No, Ureteral stone with hydronephrosis, pp_set_radiology[facility] Medications What How Much When Why Instructions Changed tamsulosin (Flomax 0.4 mg Cap) 1 Capsules By Mouth Every day Duration: 14 Days Pickup at [id number] Unchanged armodafinil (armodafinil 250 mg oral tablet) 1 Tablets Contact prescribing physician if questions or concerns Unchanged atorvastatin (Lipitor 20 mg Tab) 1 Tablets By Mouth Once a day (at bedtime) Contact prescribing physician if questions or concerns Unchanged famotidine (famotidine 20 mg Tab) 1 Tablets Contact prescribing physician if questions or concerns Unchanged fluoxetine (FLUoxetine 10 mg Cap) Contact prescribing physician if questions or concerns Unchanged Misc Prescription (cephalexin (Keflex 500 mg Cap)) 1 Capsules Every 6 hours Contact prescribing physician if questions or concerns Unchanged multivitamin (Dosokap oral tablet) See instructions Contact prescribing physician if questions or concerns Unchanged naproxen (naproxen 500 mg Tab) 1 Tablets By Mouth 2 times a day Contact prescribing physician if questions or concerns Unchanged ondansetron (Zofran 8 mg Tab) 1 Tablets By Mouth Every 8 hours Breast cancer Contact prescribing physician if questions or concerns Unchanged potassium chloride (potassium chloride 10 mEq Cap-ER) 2 Capsules By Mouth Every day Contact prescribing physician if questions or concerns Pharmacy Information [id number]: [address] [place], [place] [id number] [phone] Allergies Pravachol (muscle aches) codeine (rash) Problems Ongoing - Any problem that you are currently receiving treatment for. Adjustment disorder with mixed anxiety and depressed mood Body mass index (BMI) of 19.0-19.9 in adult Breast cancer, right breast GERD (gastroesophageal reflux disease) Hearing loss Hyperlipidemia Hypokalemia Port-A-Cath in place Ureteral stone with hydronephrosis Historical - Any problem that you are no longer receiving treatment for. BMI 20.0-20.9, adult Breast cancer High risk medication use Patient Survey You may receive a survey via text or e-mail asking about your office visit. Please share your experience with us by completing your survey. We appreciate your feedback and thank you for choosing us for your care. Education Materials ESWL for Kidney Stones Extracorporeal shock wave lithotripsy (ESWL) is a treatment that can help break up kidney stones that are too large to pass on their own. This is a nonsurgical procedure that breaks up a kidney stone with shock waves. These shock waves pass through your body and focus on the kidney stone. They cause the kidney stone to break into smaller pieces (fragments) while it is still in the urinary tract. The fragments of stone can pass more easily out of your body in the urin (more content not included)... Normal [facility] Provider Letteron 07-28-2024 Provider Letter Provider Letter July 28, 2024 [place] [address] : 1970 To Whom It May Concern, Please excuse above patient from work. Date of Illness: From: 07/21/24 To: 07/28/24 May Return to Work On: 07/29/24 Restrictions: none Comments: Patient was in [facility] ER on 07/21/24, and had an appointment with Dr. Cabrera on 07/28/24. Sincerely, [facility] Urology Office/Clinic Noteon 07-28-2024 Urology Office/Clinic Note Urology Office/Clinic Note Chief Complaint ureteral stone HPI Staff 54yr old new female pt here for f/u to [facility] ER w/ KUB. Pt seen 07/21/24 for right lower back and flank pain, and blood-tinged urine. Had CT done showing obstructing 7mm right UPJ stone and moderate hydronephrosis of right kidney. Given IV Rocephin and discharged with Flomax 0.4mg qd and Keflex 500mg q6hrs. Pt to have KUB done prior to OV. Dysuria: denies Incomplete bladder emptying: denies Hematuria: last seen when she went to the ED Frequency: denies Urgency: rare Nocturia: 1x Stream: no straining Leaking: yes at times Post void dripping: denies Wearing pads/ Depends: wears pads and changes 1x daily Urge incontinence: denies Stress incontinence: denies Incontinence without Sensory Awareness: denies Abdominal pain: denies Flank pain: denies Sexual complaints: denies History of Present Illness Tests reviewed: UA, ER records. KUB, CT, ucx I have reviewed the previous health record information and history for this patient from [facility]. I have reviewed and verified the staff HPI to be accurate for this encounter. Review of Systems PHQ Score Initial Depression Screen Score: 2 SCORE ROS - Provider Constitutional: denies weight loss, denies hot flashes. Eyes: denies eye problems. Gastrointestinal: denies nausea, denies vomiting. Cardiovascular: denies chest pain or angina. Integumentary: no dryness Musculoskeletal: denies musculoskeletal symptoms. ENMT: denies otolaryngeal symptoms. Respiratory: no shortness of breath. Heme/Lymph: denies easy bleeding tendency, denies easy bruising tendency. Psychiatric: no confusion, no anxiety. Genitourinary: See HPI. Physical Exam Vitals & Measurements T: 36.9 ???C(Temporal Artery) HR: 97(Peripheral) RR: 16 BP: 101/67 HT: 59 in HT: 150 cm WT: 39.2 kg WT: 86.421 lb BMI: 17.42 General Appearance: alert, no distress, well nourished, well developed female. Assessment/Plan Eve is a 54 yo male new pt following up to [facility] ER visit on 07/21/24 due to R lower back, flank pain, and gross hematuria. Given IV Rocephin. Discharged with Flomax 0.4mg qd and Keflex 500mg q6hrs. Ucx was neg. 1. Ureteral stone with hydronephrosis (N13.2: Hydronephrosis with renal and ureteral calculous obstruction) CT AP wo con 07/21/24 [facility] - 5 mm stone R UPJ and moderate R hydro. No L renal stone. KUB 07/26/24 [facility] - No significant change of ureteral stone. UA shows small blood and small leuks. Reviewed imaging with pt using visual diagram. Not voiding as frequently which she attributes to not taking in as much fluid. First stone event. Discussed options including cont MET and try to pass stone on her own since she is not currently in pain vs schedule pt for ESWL and have her try to pass the stone in the meantime. R/Bs of options discussed. Stone may or may not pass on its own. Pt elects to try to pass stone on her own and rediscuss potential surgical intervention in 2 wks. Was given Naproxen and [place], hasn't taken either. Follow up 2 wks with KUB at [facility], rediscuss surgical intervention or sooner if needed. Pt understands and agrees with plan. -Cont Flomax qd. Cont straining urine. Pt to call if she passes stone. -Take pain meds for ER prn. -Pt to call or go to the ER if they were to experience fever, shaking, chills, uncontrolled nausea, vomiting, or pain. Follow-up With When Contact Information DEBORAH HENRY, Paul Denney, [facility] [address], [place] [address]- Additional Instructions: 2 wks with KUB at [facility], rediscuss surgical intervention Patient Education ESWL for Kidney Stones I, Randi Mckeon, personally scribed for Dr. Cabrera on 07/28/2024 12:53:09. . Documentation recorded by the scribsue, Randi Mckeon, accurately reflects the services(s) I performed and decisions made by me. Authenticated by Dr. Cabrera on 07/28/2024 12:55:36. Problem List/Past Medical History Ongoing Adjustment disorder with mixed anxiety and depressed mood Body mass index (BMI) of 19.0-19.9 in adult Breast cancer, right breast GERD (gastroesophageal reflux disease) Hearing loss Hyperlipidemia Hypokalemia Port-A-Cath in place Ureteral stone with hydronephrosis Historical BMI 20.0-20.9, adult Breast cancer High risk medication use Procedure/Surgical History Removal of implantable venous access port (11/21/2022), Infusion/injection port, implantable (12/10/2020), [place] node biopsy (11/16/2020), Biopsy of breast (10/29/2020), Lumpectomy of right breast (2019), Colonoscopy (07/05/2015), right shoulder arthroscopy with subacromial decompression, partial distal claviculectomy (06/30/2014), Arm fracture..., Laparoscopy. Medications armodafinil 250 mg oral tablet, 250 mg= 1 tab(s) cephalexin (Keflex 500 mg Cap), 1 cap(s), q6hr Dosokap oral tablet, See Instructions famotidine 20 mg Tab, 20 mg= 1 tab(s) Flomax 0.4 mg (more content not included)... Normal [facility] Comment on above: Result Comment: Elec tronically Signed By: Paul CABRERA MD\.br\Date and Time Signed: 07/28/24 12:55 EST\.br\Electronically Co-Signed By: Randi Mckeon\.br\Date and Time Co-Signed: 07/28/24 12:53 EST XR Abdomen 1 Viewon 07-27-20 XR Abdomen 1 View Exam Date/Time: 07/26/2024 11:24 EST Reason for Exam: Kidney stone Report IMPRESSION: NO SIGNIFICANT INTERVAL CHANGE OF CALCULUS WITHIN THE PROXIMAL RIGHT URETER. EXAMINATION: XR Abdomen 1 View HISTORY: Kidney stone TECHNIQUE: Frontal view of the abdomen and pelvis COMPARISON: CT abdomen pelvis 07/21/2024 FINDINGS: No significant interval change in size or position of the calculus within the proximal right ureter given differences in imaging modality. Nonobstructive bowel gas pattern. No evidence of free air. Gallstone noted. No acute osseous abnormality. Ordering Provider: Paul CABRERA FINAL REPORT Dictated: 07/27/2024 1:13 pm Liu Borrero DO Signed (Electronic Signature): 07/27/2024 1:13 pm Signed by: Liu Borrero DO Transcribed by: DAQUAN Technologist: EZEQUIEL Technical Comments Radiation Dose: Ka,r in mGy = . DAP = . Normal [facility] C Urineon 07-23-2024 Bacteria identified Cx Nom (U) Microbiology PROCEDURE: Urine Culture [R1] SOURCE: U Random BODY SITE: COLLECTED DATE/TIME: 07/21/2024 01:09 EST RECEIVED DATE/TIME: 07/21/2024 04:57 EST START DATE/TIME: 07/21/2024 04:57 EST FREE TEXT SOURCE: Ha Johnson DO, DO, Noah S. FINAL REPORTS Final Report [] Verified Date/Time: 07/23/2024 10:48 EST 3,000 cfu/ml Mixed skin contaminants Performing Locations R1: This test was performed at: [facility], [address] [place] [address], [phone]- , , Normal [facility] Comment on above: Performed By: #### 2 [id number] #### [facility] [address] [place] [address] BMPon 07-21-2024 Anion gap [Moles/Vol] 14 mmol/L Normal 6-16 [facility] Comment on above: Performed By: #### 2 [id number] #### [facility] [address] [place] [address] Calcium [Mass/Vol] 9.6 mg/dL Normal 8.9-11.1 [facility] Comment on above: Performed By: #### 2 [id number] #### [facility] [address] [place] [address] Chloride [Moles/Vol] 100 mmol/L Low 101-111 [facility] Comment on above: Performed By: #### 2 [id number] #### [facility] [address] [place] [address] CO2 [Moles/Vol] 27 mmol/L Normal 21-31 [facility] Comment on above: Performed By: #### 2 [id number] #### [facility] [address] [place] [address] Creatinine [Mass/Vol] 0.6 mg/dL Normal 0.5-1.3 [facility] Comment on above: Performed By: #### 2 739165 #### [facility] [address] [place] [address] Glucose [Mass/Vol] 137 mg/dL Normal 55-199 [facility] Comment on above: Performed By: #### 2 [id number] #### [facility] [address] [place] [address] Potassium [Moles/Vol] 3.5 mmol/L Normal 3.5-5.3 [facility] Comment on above: Performed By: #### 2 [id number] #### [facility] [address] [place] [address] Sodium [Moles/Vol] 137 mmol/L Normal 135-145 [facility] Comment on above: Performed By: #### 2 056329 #### [facility] [address] [place] [address] Urea nitrogen [Mass/Vol] 11 mg/dL Normal 5-21 [facility] Comment on above: Performed By: #### 2 [id number] #### [facility] [address] [place] [address] Urea nitrogen/Creatinine [Mass ratio] 18 No Units Normal 10-20 [facility] Comment on above: Performed By: #### 2 716066 #### [facility] [address] [place] [address] CBC w/ Auto Diffon 4 Basophils/100 WBC (Bld) 0.3 % Normal 0.0-2.0 [facility] Comment on above: Performed By: #### 2 [id number] #### [facility] [address] [place] [address] Basophils/Leukocyte s Auto (Bld) [Pure # fraction] 0.0 E9/L Normal 0.0-0.2 [facility] Comment on above: Performed By: #### 2 201711 #### [facility] [address] [place] [address] Eosinophils (Bld) [#/Vol] 0.0 E9/L Normal 0.0-0.5 [facility] Comment on above: Performed By: #### 2 [id number] #### [facility] [address] [place] [address] Eosinophils/100 WBC (Bld) 0.0 % Normal 0.0-8.0 [facility] Comment on above: Performed By: #### 2 798461 #### [facility] [address] [place] [address] Erythrocyte distribution width (RBC) [Ratio] 12.5 % Normal 10.9-14.2 [facility] Comment on above: Performed By: #### 2 [id number] #### [facility] [address] [place] [address] Hematocrit (Bld) [Volume fraction] 38.1 % Normal 34.0-46.0 [facility] Comment on above: Performed By: #### 2 029771 #### [facility] [address] [place] [address] Hemoglobin (Bld) [Mass/Vol] 12.7 g/dL Normal 12.0-16.0 [facility] Comment on above: Performed By: #### 2 067677 #### [facility] [address] [place] [address] Lymphocytes (Bld) [#/Vol] 0.5 E9/L Low 1.0-4.0 [facility] Comment on above: Performed By: #### 2 768745 #### [facility] [address] [place] [address] Lymphocytes/100 WBC (Bld) 3.5 % Low 14.0-50.0 [facility] Comment on above: Performed By: #### 2 313654 #### [facility] [address] [place] [address] MCH (RBC) [Entitic mass] 28.4 pg Normal 27.0-34.0 [facility] Comment on above: Performed By: #### 2 124309 #### [facility] [address] [place] [address] MCHC (RBC) [Mass/Vol] 33.3 g/dL Normal 31.4-36.0 [facility] Comment on above: Performed By: #### 2 751632 #### [facility] [address] [place] [address] MCV (RBC) [Entitic vol] 85.2 fL Normal 80.0-100.0 [facility] Comment on above: Performed By: #### 2 [id number] #### [facility] [address] [place] [address] Monocytes (Bld) [#/Vol] 0.4 E9/L Normal 0.2-1.0 [facility] Comment on above: Performed By: #### 2 018814 #### [facility] [address] [place] [address] Neutrophils (Bld) [#/Vol] 14.3 E9/L High 2.0-7.5 [facility] Comment on above: Performed By: #### 2 317776 #### [facility] [address] [place] [address] Neutrophils/100 WBC (Bld) 93.8 % High 36.0-75.0 [facility] Comment on above: Performed By: #### 2 612330 #### [facility] [address] [place] [address] Platelet mean volume (Bld) [Entitic vol] 8.4 fL Normal 6.4-10.8 [facility] Comment on above: Performed By: #### 2 [id number] #### [facility] [address] [place] [address] Platelets (Bld) [#/Vol] 253.0 E9/L Normal 150.0-500.0 [facility] Comment on above: Performed By: #### 2 912179 #### [facility] [address] [place] [address] RBC (Bld) [#/Vol] 4.5 E12/L Normal 4.3-5.9 [facility] Comment on above: Performed By: #### 2 636854 #### [facility] [address] [place] [address] WBC corrected for nucl RBC Auto (Bld) [#/Vol] 15.3 E9/L High 4.0-11.0 [facility] Comment on above: Performed By: #### 2 [id number] #### [facility] [address] [place] [address] CT Abdomen/Pelvis w/o Contra ston 07-21-2024 CT Abdomen/Pelvis w/o Contrast Exam Date/Time: 07/21/2024 01:50 EST Reason for Exam: ABDOMINAL PAIN, ACUTE, NONLOCALIZED;Other (please specify) Report IMPRESSION: MODERATE RIGHT HYDRONEPHROSIS WITH 5 MM CALCULUS RIGHT URETEROPELVIC JUNCTION. CHOLELITHIASIS. REMOTE L1 COMPRESSION FRACTURE WITH KYPHOPLASTY. CT OF THE ABDOMEN AND PELVIS WITHOUT INTRAVENOUS CONTRAST MEDIUM. History: ABDOMINAL PAIN, ACUTE, NONLOCALIZED. Technical Factors: CT imaging of the abdomen and pelvis were obtained and formatted as 5 mm contiguous axial images from the domes of the diaphragm to the symphysis pubis. Sagittal and coronal reconstructions were also obtained. Oral contrast medium: None. Intravenous contrast medium: None. Comparison: None Findings: Lower chest: Cardiac size normal. No pericardial effusion. No coronary artery calcification. Lung bases clear. Liver: Normal in size, shape, and attenuation. Bile Ducts: Normal in caliber. Gallbladder: 2.1 cm calculus in gallbladder. No wall thickening or pericholecystic fluid. Pancreas: Normal without masses, cysts, ductal dilatation or calcification. Spleen: Normal in size without masses or calcifications. No splenules. Kidneys: Normal in size. Moderate right pelvocaliectasis. No left pelvocaliectasis. 5 mm calculus at right ureteral pelvic junction. No left renal calculi. No cystic/solid masses evident. Adrenals: Normal. Small bowel: Normal in caliber. Appendix: Normal. Report Colon: Normal in caliber. Peritoneum: No ascites, free air, or fluid collections. Vessels: Aorta normal in course and caliber. Lymph nodes: Retroperitoneal: No enlarged retroperitoneal lymph nodes. Mesenteric: No enlarged mesenteric lymph nodes. Pelvic: No enlarged pelvic lymph nodes. Ureters: Normal in course and caliber. No calcifications. Bladder: No wall thickening. Reproductive organs: No pelvic masses. Abdominal Wall: 3 mm fat-containing periumbilical anterior abdominal wall defect. No diastasis of rectus musculature. No edema or masses. Bones: No bone lesions. No degenerative changes. Remote L1 compression fracture with kyphoplasty. All CT scans at this facility use dose modulation, iterative reconstruction, and/or weight based dosing when appropriate to reduce radiation dose to as low as reasonably achievable. Ordering Provider: Ha Johnson FINAL REPORT Dictated: 07/21/2024 8:48 am Imtiaz Escobedo MD Signed (Electronic Signature): 07/21/2024 8:48 am Signed by: Imtiaz Escobedo MD Transcribed by: DAQUAN Technologist: CATHERINE Technical Comments Contrast: None Rectal Contrast Given? No Oral contrast amount in ml's: 0 Normal [facility] ED Clinical Summaryon 2023 ED Clinical Summary ED Clinical Summary [place] [id number] ED Clinical Summary Person Information Name: EVE LINDSEY Malena/[facility] Age: 54 Years : 1970 Sex: Female Language: New Zealander PCP: Rell Barbosa DO Marital Status: Phone: Visit Id: Visit Reason: Hematuria; Flank pain; Nausea; Back pain; BACK PAIN, NAUSEA Speciality: Acuity: 3 Enc Type: Emergency Med Service: Emergency Arrival: 07/21/2024 00:50:42 Discharge: 07/21/2024 05:42:56 LOS: 000 04:52 Checkin: 07/21/2024 00:50:42 Checkout: 07/21/2024 05:42:56 Dispo Type: Home (Routine DC) EVENTS: Event Name Event Status Request Date/Time Start Date/Time Complete Date/Time Arrive Complete 07/21/2024 00:50:42 07/21/2024 00:50:42 07/21/2024 00:50:42 Document Home Meds Request 07/21/2024 00:50:42 Triage Complete 07/21/2024 00:50:42 07/21/2024 00:57:06 07/21/2024 00:57:06 Dr Exam Complete 07/21/2024 00:52:31 07/21/2024 00:52:31 07/21/2024 00:52:31 Registration Complete 07/21/2024 00:52:31 07/21/2024 00:59:04 07/21/2024 01:02:45 Bed Assign Complete 07/21/2024 00:59:04 07/21/2024 00:59:04 07/21/2024 00:59:04 RN Exam Complete 07/21/2024 00:59:04 07/21/2024 01:47:35 07/21/2024 01:47:35 Reg Complete Request 07/21/2024 01:02:45 Reg Bed Request Complete 07/21/2024 01:02:45 07/21/2024 01:02:45 07/21/2024 01:02:45 CT Complete 07/21/2024 01:07:22 07/21/2024 01:08:41 07/21/2024 01:50:36 Pending Labs Complete 07/21/2024 01:07:22 07/21/2024 01:46:25 Lab Complete 07/21/2024 01:07:22 07/21/2024 01:38:05 Patient Care Request 07/21/2024 01:07:22 Meds Admin Complete 07/21/2024 01:07:22 07/21/2024 01:14:10 Pending Labs Complete 07/21/2024 01:13:28 07/21/2024 01:13:28 07/21/2024 01:38:05 Lab Complete 07/21/2024 01:13:28 07/21/2024 01:13:28 07/21/2024 01:38:05 Pending Labs Inlab 07/21/2024 01:46:25 07/21/2024 01:46:25 Lab Inlab 07/21/2024 01:46:25 07/21/2024 01:46:25 Meds Admin Complete 07/21/2024 04:36:39 07/21/2024 05:00:58 Meds Admin Complete 07/21/2024 04:41:35 07/21/2024 05:00:58 Discharge Complete 07/21/2024 04:41:52 07/21/2024 05:43:02 07/21/2024 05:43:02 Transfer Complete 07/21/2024 05:43:02 07/21/2024 05:43:02 07/21/2024 05:43:02 ADDRESS: [address] [place] [id number] PHYS DOC NOTES: MEDICAL INFORMATION: Prescriptions Given: New Medications [id number], [address] [place], [place] [id number], [phone] cephalexin (Keflex 500 mg Cap) 1 Capsules By Mouth every 6 hours for 7 Days. Refills: 0. naproxen (naproxen 500 mg Tab) 1 Tablets By Mouth 2 times a day as needed Pain for 7 Days. Refills: 0. tamsulosin (Flomax 0.4 mg Cap) 1 Capsules By Mouth every day. Refills: 0. Medications to Continue with No Changes Other Medications atorvastatin (Lipitor 20 mg Tab) 1 Tablets By Mouth once a day (at bedtime). Refills: 3. escitalopram (Lexapro 10 mg Tab) 1 Tablets By Mouth every day. Refills: 1. fluoxetine (FLUoxetine 10 mg Cap) ibuprofen (ibuprofen 600 mg Tab) 1 Tablets By Mouth every 8 hours. Refills: 1. meloxicam (Mobic 7.5 mg Tab) 1 Tablets By Mouth every day. omeprazole (omeprazole 20 mg Cap-DR) 2 Capsules By Mouth every day. Refills: 5. ondansetron (Zofran 8 mg Tab) 1 Tablets By Mouth every 8 hours. Refills: 1. potassium chloride (potassium chloride 10 mEq Cap-ER) 2 Capsules By Mouth every day. Refills: 1. PATIENT EDUCATION INFORMATION: Instructions: Urinary Tract Infection, Adult; Kidney Stones Follow up: With: Address: When: Paul CABRERA [address], [address], [facility] [address] [place] [address] Business (1) [facility], [address] [place] [address] Business (1) Comments: Call for diagnosis based follow up With: Address: When: Rell Barbosa [address], [place], [place] [address] [place] [address] Business (1) In 3 days DIAGNOSIS: Acute UTI; Hydronephrosis; Ureterolithiasis Normal [facility] ED Note-Physicianon 07-21-20 ED Note-Physician ED Note-Physician Basic Information Time Seen: Ha Johnson DO 07/21/2024 00:52 Chief Complaint right lower back pain last night. nausea flank pain. blood in urine. History of Present Illness HPI: Patient is a 54-year-old female with past medical history of breast cancer, hyperlipidemia, narcolepsy presents the ED for right lower back and flank pain as well as blood-tinged urine. She states that this all started within the last 24 hours. The pain is crampy in sensation and is in her right lower back as well as her right flank. She does have some nausea but no vomiting. No change in bowel movements. No fever or chills. ROS: Pertinent review of systems conducted and is negative except as noted above. Physical exam: General: nontoxic appearing and in no distress HEENT: Mucous membranes moist Neuro: awake and alert Neck: supple, trachea midline Card: Heart regular rate and rhythm no murmur Resp: Lungs clear to auscultation no wheeze or rhonchi Abd: Soft and nondistended. Mild right upper and lower quadrant tenderness without rebound or guarding. Right CVA tenderness. Ext: No gross deformity or edema Physical Exam Vitals & Measurements T: 36.6 ???C(Oral) HR: 87(Peripheral) RR: 16 BP: 137/76 SpO2: 99% HT: 150 cm WT: 43.6 kg BMI: 19.38 Medical Decision Making MEDICAL DECISION MAKING Number and Complexity of Problems Differential Diagnosis: [] [facility] Data External documents reviewed: N/A My EKG interpretation: Noted in chart if applicable My CT interpretation: N/A My X-ray interpretation: Noted in chart if applicable My Ultrasound interpretation: N/A Decision rules/scores evaluated: N/A Discussed with: N/A Treatment and Disposition ED Course: Patient is nontoxic-appearing and in no distress. She is afebrile here in the ED. She does have tenderness over the right CVA and concern possible kidney stone. Will obtain blood work as well as urinalysis and a CT of the abdomen pelvis. Patient was given a dose of Toradol and Zofran for her symptoms. Blood work shows normal kidney function. She does have a leukocytosis of 15.3. CT of the abdomen pelvis shows obstructing 7 mm right UPJ stone. Moderate hydronephrosis of the right kidney. Urinalysis shows both RBCs as well as white blood cells in clumps. I called and spoke with Dr. Cabrera who is on-call for urology and he recommended the patient be given a dose of IV Rocephin and can then be discharged with prescriptions for oral antibiotics, analgesia, and Flomax and he will follow-up with her in the office later this week. I discussed this with the patient at bedside and she is comfortable with this plan. We discussed return precautions. Patient was discharged in stable condition. Shared decision making: As above Code status: N/A Assessment/Plan Acute UTI (N39.0: Urinary tract infection, site not specified) Hydronephrosis (N13.30: Unspecified hydronephrosis) Ureterolithiasis (N20.1: Calculus of ureter) Ordered: acetaminophen-oxycodo ne, 1 EA, Tab, Oral, Once, Stop date 07/21/24 4:41:00 EST, STAT, Start date 07/21/24 4:41:00 EST Orders: ceftriaxone + Sodium Chloride 0.9% intravenous solution 50 mL, 1,000 mg = 1 EA, IV Piggyback, Once, Stop date 07/21/24 4:36:00 EST, STAT, Start date 07/21/24 4:36:00 EST, 100 mL/hr, Infuse over 30 minute(s), 07/21/24 4:36:00 EST cephalexin, 500 mg = 1 cap(s), Oral, q6hr, X 7 day(s), # 28 cap(s), Refills(s) 0, Pharmacy: [facility] #[id number], 150, cm, 07/21/24 0:57:00 EST, Height/Length Dosing, 43.6, kg, 07/21/24 0:57:00 EST, Weight Dosing ketorolac, 15 mg = 1 mL, Injection, IV Push, Once, Stop date 07/21/24 1:06:00 EST, STAT, Start date 07/21/24 1:06:00 EST, 07/21/24 1:06:00 EST naproxen, 500 mg = 1 tab(s), Oral, BID, PRN Pain, X 7 day(s), # 14 tab(s), Refills(s) 0, Pharmacy: [facility] #[id number], 150, cm, 07/21/24 0:57:00 EST, Height/Length Dosing, 43.6, kg, 07/21/24 0:57:00 EST, Weight Dosing ondansetron, 4 mg = 2 mL, Injection, IV Push, Once, Stop date 07/21/24 1:06:00 EST, STAT, Start date 07/21/24 1:06:00 EST, 07/21/24 1:06:00 EST promethazine 12.5 mg + Sodium Chloride 0.9% intravenous solution 50 mL, Injection, IV Piggyback, Once, Stop date 07/21/24 4:36:00 EST, STAT, Start date 07/21/24 4:36:00 EST, 151.5 mL/hr, Infuse over 20 minute(s) tamsulosin, 0.4 mg = 1 cap(s), Oral, Daily, # 10 cap(s), Refills(s) 0, Pharmacy: [facility] #[id number], 150, cm, 07/21/24 0:57:00 EST, Height/Length Dosing, 43.6, kg, 07/21/24 0:57:00 EST, Weight Dosing Basic Metabolic Panel CBC w/ Auto Diff CT Abdomen/Pelvis w/o Contrast eGFR Hepatic Function Panel Lipase Level Saline Lock Insert UA with Cult Rflx Urine Culture Medications Administered Given ketorolac 15 mg/mL Inj, 15 mg, IV Push Zofran 4 mg/2 mL Injection, 4 mg, IV Push Disposition Plan Discharge Prescription List Prescriptions Flomax 0.4 mg Cap, 0.4 mg= 1 cap(s), Oral, Daily Keflex 500 mg Cap, 500 mg= 1 cap(s), Oral, q6hr na (more content not included)... Normal [facility] Comment on above: Result Comment: Elec tronically Signed By: Ha Johnson DO\.br\Date and Time Signed: 07/21/24 04:45 EST ED Patient Summaryon 024 ED Patient Summary ED Patient Summary [address] [address] Patient Discharge Instructions Person Information Name: EVE LINDSEY Age: 54 Years Arrival Date: 07/21/2024 00:50:42 Discharge Diagnosis: Acute UTI; Hydronephrosis; Ureterolithiasis Primary Care Physician: Rell Barbosa DO Provider Information Primary Provider: Ha Johnson DO Advanced Business Travel Consultant:None The exam and treatment you received in the Emergency Department were for an urgent problem and are not intended as complete care. It is important that you follow up with a doctor, nurse practitioner, or physician???s business services assistant for ongoing care. If your symptoms become worse or you do not improve as expected and you are unable to reach your usual health care provider, you should return to the Emergency Department. We are available 24 hours a day. EVE LINDSEY has been given the following list of patient education materials, prescriptions and follow-up instructions: Follow-up Instructions: With: Address: When: Paul CABRERA [address], [address], [facility] [address] [place] [address] Business (1) [facility], [address] [facility] [address] Business (1) Comments: Call for diagnosis based follow up With: Address: When: Rell Barbosa [address], [place], [address] [address] Business (1) In 3 days In the event that this physician does not participate in your insurance network, please consult with your insurance company to find a nearby participating provider. Patient Education Materials: Urinary Tract Infection, Adult; Kidney Stones A MESSAGE TO ALL PATIENTS REGARDING OPIOIDS PRESCRIPTION OPIOIDS: WHAT YOU NEED TO KNOW Prescription opioids can be used to help relieve mzlztzzk-[id number] pain and are often prescribed following a surgery or injury, or for certain health conditions. These medications can be an important part of the treatment but also come with serious risks. It is important to work with your healthcare provider to make sure you are getting the safest, most effective care. WHAT ARE THE RISKS AND SIDE EFFECTS OF OPIOID USE? Prescription opioids carry serious risks of addiction and overdose, especially with prolonged use. An opioid overdose, often marked by slowed breathing, can cause sudden . The use of prescription opioids can have a number of side effects as well, even when taken as directed: ??? Tolerance???meaning you might need to take more of the medication for the same pain relief ??? Physical dependence???meaning you have symptoms of withdrawal when a medication is stopped ??? Increased sensitivity to pain ??? Constipation ??? Nausea, vomiting, and dry mouth ??? Sleepiness and dizziness ??? Confusion ??? Depression ??? Low levels of testosterone that can result in lower sex drive, energy, and strength ??? Itching and sweating RISKS ARE GREATER WITH: ??? History of drug misuse, substance use disorder, or overdose ??? Mental health conditions (such as depression or anxiety) ??? Sleep apnea ??? Older age (65 years and older) ??? Avoid alcohol while taking prescription opioids. Also, unless specifically advised by your health care provider, medications to avoid include: ??? Benzodiazepines (such as Xanax or Valium) ??? Muscle relaxants (such as Soma or Flexeril) ??? Hypnotics (such as Ambien or Lunesta) ??? Other prescription opioids KNOW YOUR OPTIONS Talk to your health care provider about ways to manage your pain that don???t involve prescription opioids. Some of these options may actually work better and have fewer risks and side effects. Options may include: ??? Pain relievers such as acetaminophen, ibuprofen, and naproxen ??? Some medication that are also used for depression or seizures ??? Physical therapy and exercise ??? Cognitive behavioral therapy, a psychological, goal-directed approach, in which patients learn how to modify physical, behavioral, and emotional triggers of pain and stress. IF YOU ARE PRESCRIBED OPIOIDS FOR PAIN: ??? Never take opioids in greater amounts or more often than prescribed. ??? Follow up with your primary health care provider. o Work together to create a plan on how to manage your pain. o Talk about ways to help manage your pain that don???t involve prescription opioids. o Talk about any and all concerns and side effects. ??? Help prevent misuse and abuse o Never sell or share prescription opioids. o Never use another person???s prescription opioids. ??? Store prescription opioids in a secure place and out of reach of others (this may include visitors, children, friends, and family). ??? Safely dispose of unused prescription opioids: Find your community drug take-back program or your pharmacy mail-back program, or f (more content not included)... Normal [facility] Hep Func Panelon 07-21-2024 Albumin [Mass/Vol] 4.5 g/dL Normal 3.3-5.0 [facility] Comment on above: Performed By: #### 2 [id number] #### [facility] [address] [place] [address] Albumin/Globulin (S) [Mass conc ratio] 1.7 Normal 1.1-2.2 [facility] Comment on above: Performed By: #### 2 [id number] #### [facility] [address] [place] [address] ALP [Catalytic activity/Vol] 110 Int._Unit/L High 21-98 [facility] Comment on above: Performed By: #### 2 [id number] #### [facility] [address] [place] [address] ALT No additional P-5'-P [Catalytic activity/Vol] 18 Int._Unit/L Normal 6-46 [facility] Comment on above: Performed By: #### 2 [id number] #### [facility] [address] [place] [address] AST [Catalytic activity/Vol] 20 Int._Unit/L Normal 5-43 [facility] Comment on above: Performed By: #### 2 [id number] #### [facility] [address] [place] [address] Bilirubin [Mass/Vol] 0.5 mg/dL Normal 0.0-1.1 [facility] Comment on above: Performed By: #### 2 [id number] #### [facility] [address] [place] [address] Bilirubin.direct [Mass/Vol] 0.0 mg/dL Normal 0.0-0.4 [facility] Comment on above: Performed By: #### 2 [id number] #### [facility] [address] [place] [address] Bilirubin.indirect [Mass or moles/Vol] 0.5 mg/dL Normal 0.1-0.9 [facility] Comment on above: Performed By: #### 2 [id number] #### [facility] [address] [place] [address] Globulin (S) [Mass/Vol] 2.7 g/dL Normal 1.4-4.0 [facility] Comment on above: Performed By: #### 2 [id number] #### [facility] [address] [place] [address] Protein [Mass/Vol] 7.2 g/dL Normal 6.0-7.8 [facility] Comment on above: Performed By: #### 2 [id number] #### [facility] [address] [place] [address] Lipase Levelon 07-21-2024 Lipase [Catalytic activity/Vol] 10 U/L Low 13-58 [facility] Comment on above: Performed By: #### 2 [id number] #### [facility] [address] [place] [address] UA with Cult Rflxon 07-21-20 24 Bilirubin Ql (U) Negative Normal Negative [facility] Comment on above: Performed By: #### 4 [id number] #### [facility] [address] [place] [address] Clarity (U) Ex.Turbid Abnormal Clear [facility] Comment on above: Performed By: #### 4 [id number] #### [facility] [address] [place] [address] Color (U) Light-Mccormick Abnormal Yellow [facility] Comment on above: Result Comment: Micr oscopic readings are only performed on those samples that meet specific criteria set forth by [facility]. Performed By: #### 4 [id number] #### [facility] [address] [place] [address] Epithelial cells.squamous Auto (Urine sed) [#/Area] 0-2 Invalid Interpretation Code [facility] Comment on above: Performed By: #### 4 [id number] #### [facility] [address] [place] [address] Glucose Ql (U) Negative Normal Negative [facility] Comment on above: Performed By: #### 4 [id number] #### [facility] [address] [place] [address] Hemoglobin Auto test strip (U) [Mass/Vol] 3+ mg/dL Abnormal Negative [facility] Comment on above: Performed By: #### 4 [id number] #### [facility] [address] [place] [address] Ketones Auto test strip Ql (U) 2+ mg/dL Abnormal Negative [facility] Comment on above: Performed By: #### 4 [id number] #### [facility] [address] [place] [address] Leukocyte clumps Auto (Urine sed) [#/Area] 4-10 Abnormal [facility] Comment on above: Performed By: #### 4 [id number] #### [facility] [address] [place] [address] Leukocyte esterase Auto test strip Ql (U) 75 Ravin/uL Abnormal Negative [facility] Comment on above: Performed By: #### 4 [id number] #### [facility] [address] [place] [address] Mucus Auto Ql (U) 3+ CD:[id number] Abnormal Negative [facility] Comment on above: Performed By: #### 4 [id number] #### [facility] [address] [place] [address] Nitrite Auto test strip Ql (U) Negative Normal Negative [facility] Comment on above: Performed By: #### 4 [id number] #### [facility] [address] [place] [address] pH (U) 5.5 [pH] Invalid Interpretation Code 5.0-9.0 [facility] Comment on above: Performed By: #### 4 [id number] #### [facility] [address] [place] [address] Protein Ql (U) 1+ mg/dL Abnormal Negative [facility] Comment on above: Performed By: #### 4 [id number] #### [facility] [address] [place] [address] RBC Ql (U) >75 Abnormal 0-3 [facility] Comment on above: Performed By: #### 4 [id number] #### [facility] [address] [place] [address] Specific gravity (U) [Rel density] 1.021 Invalid Interpretation Code 1.005-1.030 [facility] Comment on above: Performed By: #### 4 [id number] #### [facility] [address] [place] [address] Urobilinogen (U) [Mass/Vol] Negative Normal Negative [facility] Comment on above: Performed By: #### 4 [id number] #### [facility] [address] [place] [address] WBC Auto (Urine sed) [#/Area] >75 Abnormal 0-5 [facility] Comment on above: Performed By: #### 4 [id number] #### [facility] [address] [place] [address] Type of Urine collection method Clean Catch Normal [facility] Comment on above: Performed By: #### 4 [id number] #### [facility] [address] [place] [address] eGFRon 07-21-2024 eGFR 107 mL/min/1.73 m2 Normal >=59 [facility] Comment on above: Performed By: #### 1 [id number] #### [facility] [address] [place] [address] XR Shoulder - left 2 [facility] 06-27-2024 Imaging Result: X-rays, permanently saved to the patient's record, are reviewed shows diffuse osteoporosis with mild to moderate degenerative changes. Questionable calcification of the subacromial space versus anchor pull out with resorption. [facility] [employer] XR Shoulder - left 2 [facility] 06-24-2024 Radiology Study observation (narrative) [employer] XR Spine Lumbosacral Minimum 4 [facility] 06-03-2024 XR Spine Lumbosacral Minimum 4 Views Exam Date/Time: 06/02/2024 10:47 EDT Reason for Exam: M54.9 Report IMPRESSION: NO ACUTE OSSEOUS ABNORMALITY OR SIGNIFICANT INTERVAL CHANGE. EXAMINATION: XR Spine Lumbosacral Minimum 4 Views TECHNIQUE: AP, lateral, bilateral oblique views of the lumbar spine and AP and lateral coned down view of the lumbosacral junction HISTORY: Low back pain COMPARISONS: Radiograph 06/02/2019 FINDINGS: Mild S-shaped scoliotic curvature of the thoracolumbar spine. Moderate anterior wedge compression deformity of L1 with postsurgical changes of vertebral body augmentation. Lumbar vertebral body heights are otherwise maintained. Intervertebral disc heights are preserved. Facet arthropathy of the lower lumbar spine. No acute fracture. No spondylolysis or spondylolisthesis. Calcified gallstone again identified. Ordering Provider: Jesus Ny FINAL REPORT Dictated: 06/03/2024 9:49 am Liu Borrero DO Signed (Electronic Signature): 06/03/2024 9:49 am Signed by: Liu Borrero DO Transcribed by: DAQUAN Technologist: ROSALBA Technical Comments Radiation Dose: Ka,r in mGy = na DAP = na Normal [facility] No Panel Informationon 04-01 [employer] Audiometry Audio indicated borderline normal hearing sloping to a mild to moderate sensorineural hearing loss, bilaterally. Today's audio is consistent with previous results recorded 04-11-2022. [facility] PAP [id number] 02-26-2024 Cytology report Cyto stain Doc (Cvx/Vag) Note Invalid Interpretation Code [facility] Comment on above: Result Comment: TEST S RESULT FLAG UNITS REF RANGE LAB Clinician Provided Cytology Information Source.............Cervix Other..............Post Menopausal No. of containers..01 ThinPrep Vial DIAGNOSIS: 01 NEGATIVE FOR INTRAEPITHELIAL LESION OR MALIGNANCY. CELLULAR CHANGES ASSOCIATED WITH ATROPHY ARE PRESENT. Specimen adequacy: 01 Satisfactory for evaluation. Endocervical and/or squamous metaplastic cells (endocervical component) are present. Performed by: Washington Sanchez, Parts Salesperson ([facility]) . 01 Note: Note 01 The Pap smear is a screening test designed to aid in the detection of premalignant and malignant conditions of the uterine cervix. It is not a diagnostic procedure and should not be used as the sole means of detecting cervical cancer. Both false-positive and false-negative reports do occur. Test Methodology: Note 01 This liquid based ThinPrep(R) pap test was screened with the use of an image guided system. FLAG LEGEND: L-Low Normal,H-High Normal,LL-Alert Low,HH-Alert High <-Panic Low,>-Panic High,A-Abnormal,AA-Critical Abnormal Performed at: [address] [address] Kiarra Greene MD, Performed By: #### 3 [id number] #### [facility] [address] [place] [address] HPV 16+18+31+33+35+39+4 5+51+52+56+58+59+66 +68 DNA Probe+sig amp Ql (Cvx) Negative Invalid Interpretation Code Negative [facility] Comment on above: Result Comment: This nucleic acid amplification test detects fourteen high-risk HPV types (16,18,31,33,35,39,45,51,52,56,58,59,66,68) without differentiation. Performed at: [address] [id number] MD Ramona Plunkett Performed at: =[address] [id number] MD Ramona Plunkett Performed By: #### 3 [id number] #### [facility] [address] [place] [address] PAP [id number] 02-21-2024 Collection Technique BRUSH-SPATULA Normal [facility] Comment on above: Performed By: #### 3 [id number] #### [facility] [address] [place] [address] Gynecological Body Site CERVIX Normal [facility] Comment on above: Performed By: #### 3 [id number] #### [facility] [address] [place] [address] Other Patient Information MENOPAUSAL Normal [facility] Comment on above: Performed By: #### 3 [id number] #### [facility] [address] [place] [address] Previous Cytology Negative Normal [facility] Comment on above: Performed By: #### 3 [id number] #### [facility] [address] [place] [address] Previous Treatment NONE Normal [facility] Comment on above: Performed By: #### 3 [id number] #### [facility] [address] [place] [address] Calciumon 02-20-2024 Calcium [Mass/Vol] 9.2 mg/dL Normal 8.9-11.1 [facility] Comment on above: Performed By: #### 2 [id number] #### [facility] [address] [place] [address] Creatinineon 02-20-2024 Creatinine [Mass/Vol] 0.6 mg/dL Normal 0.5-1.3 [facility] Comment on above: Performed By: #### 2 [id number] #### [facility] [address] [place] [address] Vitamin D 25 Hydroxyon 02-19 25-hydroxyvitamin D3 [Mass/Vol] 69.8 ng/mL Normal 30.0-100.0 [facility] Comment on above: Performed By: #### 5 [id number] #### [facility] [address] [place] [address] eGFRon 02-20-2024 eGFR 107 mL/min/1.73 m2 Normal >=59 [facility] Comment on above: Order Comment: Order added by Discern Expert. Performed By: #### 1 [id number] #### [facility] [address] [place] [address] Coding Summary.on 02-05-2024 Coding Summary. HAVDOdiy00GYk7sQr+PG h lYWQ+QM3XOEChI18lyTPq eW7hY2WOAGfLQzfrAFANQ YhUGhJyfkUjIA4mjXRiGY Ju IC8+MW3aSUDuSgyahUJas 1S4hGY1C73jqw4bKJsncW W4LMSmBeIupywlx7bgwDp 6IDcuNmluOyBt XKChrO36ESI3bV40Oj13d TBscUDut2wapOl2IdCxTE TiELO0hMylCTqas6YiCPN bP97toCGoc3Q5 NMYxhUwqaSWyKrTtbSP1w E0iYVdcxvzwp8znpcntCb z3ba22bZUye5N0zKP8J5U qkcI9BMUpxLAx EgxuoMREnZ5xrxczb5lmg tbgRsPsADHjYTe4YLn9FD MkxJspShUpLK37TCD0QAG dutXlZ5JeGXBp hVwaRdA7i4C6Qc5PC8KAE hcsQ4TRKANJZEencEL+PC 24rr89H9SaHtzrEmu4RID oQTF1vQI6xS4t ITAdYHewl8M5jSY6Q7Khq xOmlr9xk9mzUYNfBRecU3 2yqBGtb1Z6TFEnqZU1EGA ylVrqAwLidS41 Oyc+OPZjsJgje3TeMpdio 1kji7tetTw9BahqBFGtvu DokXbhDLS1l1VnUy6uTEL taJB0kFE3mI8j XnHvWvJ8FFbqE767LlElu ZTbTispF31nZ0GwfCT+PH XfLtm3UMCpeZxlKY4zG6B hZGRpbmctbGVm eTocWI0rEHMtuqdlCJEzc E9lEKPcS8e5VsHaGfD3ME zgA2NuHRIlsgpdJz71eU4 gQlQvGcM6HDap Q0GbieF0XIFbvAFuOTkeB XC2J21as9C5OQYnVVMlSU W1rSM7sV9cfPauurkisNG mdDsgdmVydGlj QZcjZYgrU779XTDmaBomU kNvZGluZyBEYXRlOiAgMD YvMjUvMjAyNDwvdGQ+PHR gTPW3hHnpLVNb bTTsXTfnEr0bdRlkbNasP O5gPMIlzucoIHPwgE8bEU LxfROphVqsMA0vXNOdczb zw717GuBpQCI1 QLTqgLIaE1CmlZ1xArDjS FVcAJUcQ5SizWMgZHzpY9 95XQdlMdK0VVNusoSlK5E sLWFsaWduOiB0 w8E7Nq8Ix1FiftyhT0Uzp YJgDqOsFybdPQx3V9GsKy wvdHI+BR77EMIxDC16CFp 2WNV2nXmsCYxv EANfW5GkqI3cKtKwIJZhK GRkOyc+PHRhYmxlIHdpZH RoPScxMDAlJyBzdHlsZT0 xWt5zQQInNECq eYfyoLBtDfJnr4kgNWJmR XasBZ5nuAhqV5PncCW5ZE Iov7e1Az23Y45oF2KthCG +RTWkiAH1nBR0 pW2xCbNeIsE8XAwcH630Z yZruEAhIxxrb5hjz6idxO g7TzS9GMLmrhIbtGryIRT 5j0FiBd82P69m IHdpZHRoPSIxNSUiIHZhb Ewcss4usO4pCd6+PGNvbC V0iUJ6cQ3qUbXgNyN5GKb xW800LvKptKRd Bgybf0bmo7aviEt5RkSmD JBdpyOygXhpWWS0z3YgKh 45S8GttRtku6LmCqb4fw8 3wIVgp9G7zGI5 S0GlSGNdqnfxcYTlnYshU B0wDYHzmtgeAMQchS8oME BnT1r4OpQkMqD4DBxvJ8J qpqS8GHWouBSc ZSKjfTGCzD1uxeohy2xxo tlhIoNmVSNpAIn7JPz8NK IrrAvdKePqHTT4YpY7XHO 4qQJdtD8fnUej jhwtzV0oImg+PBZ2bCUez FTMFN3wQdqwhYK+PHRkIH Y3jWiyCTtoGXZbmA6dAIR vB7a7HmRdHlR3 NIzqC2CbixB6ASByqGAfE RQrqPEZqH3joschn2joho qeOgEmHZPlZMw1CGa3RPM saWduOiBsZWZ0 LfK3NBI0tHQkhV6lfPstw lbokK6sOfw+QmlydGggRG R9BJu8P8NtWxt0BCHzjGo bUK4egPHfAZjh Qy3qsUczdPlzEE7fLTSdo gejg195AoCrp9qiAYOeeF GgQLkgMUN2X54uc9P8SVM zRUPdJZZ5iNH8 fZ2uoYlrptndqHBycWicv nGxoOlrIVtiDGvnI042OC XdqWezPvKhERd9X5VyHff 8DJHhqQnkOK1n rIQhXTnuXh3udTszbCevC Y8xIKOnznbwr100IbPap2 jhETCavHItTQebSGW2E85 aw5J4UIDvWTEf DKE2sSG1pE8jgFzrczdgr GVmdDsgdmVydGljYWwtYW qpC062NSBpbVnnRaQduDe 9W1PxCme9AFXn wXqzMS0kuYWkAGmjIn0iu JbaqDhnYI9iZWVlioifv2 56OmDfg9lfFZVttCQnNSe hXVK3U42bi9F5 WRXkXTTzZGC1uMJ1vT0rd GlnbjogbGVmdDsgdmVydG alNCcwXDnsL817IHQifMd nPlBhdGllbnQg OAjjTZo5P8TrYmpagMW+P C24ZHKbTQ17zYZylKVlr1 vfxXy5LhDgUVMfDIO6pWs gTRyyd1WgFMAk R92xdBMuh1M8YNOllMeic KRcCdHhzYX6jY9hPOseuo igf8qswguzSipvi6jsgj9 8tU18G40pUBwu ZHRoPSIzMCUiIHZhbGlnb j2jvO2oNq4+MVFxaRY8iG M8lZ8fKVLsFgE4DBjuV06 9InRvcCIvPjxj c8dmp4mkmGv7OrR4MCPbd aGanBeqMJU4x7DqLe28T3 9sIHdpZHRoPSIyMCUiIHZ agNyghj8rdI1v Ii8+XCUutXZ1hKX1cL4tT uWgGsC5RIpyT216HkBndV UxBgtpN93uV1VdpPH+PHR cBsq5VKLtpUts XQ7urSYbLIifEm6pAWX2H sNxCcXfZOnkM3QvMWBmek ydrjflgPJ6MONqVIKufR8 2Wj1xiMytYAAk hBOLyA9solsjz4hxdhnoR wJnDLOwYAa5CAu0WNDmdQ wxBlOjHKA4WoJ1MGB2lJF rkM2ghHchaodd fQ4eP1FnPGAmcgycWg27i L3uGxPzWgA5DBnoTne+UE zXBCCYP8AOHALVIWERKFo gQTwvdGQ+PHRk VKM5uVvkOKnhDEWedZ0aO OWfY0k4LrApDzD9NHabJ8 SlGFAbhtdqVi30tZ8cTaS cPlI0LCdxC8Sz ujR2MROzdJZpLTftPST2Z 84hp2X6WRKmMETwFFE4bA L1dN4rnKjhuvqevOVxhQa gdmVydGljYWwt XFtmV679KYAqpCcrXvI8G fZ1ItX7AxZ5F6JkDnq1EF PywUpnPO9vwFPhSBfjIe4 dvPtynIyqSI9a SUUxurlkYOIkgL3aIESou QToqKfoPL6hZHTsqekwj7 19DyDvIOF3EYXzxSCfK3O zlL8eNpLjVRFp QEXoP2OpaHKsFQhjR242B VrnYnL9CWQrxeQgL4ZrGY LpmQomQcJ3l8T9Ok80CiN ZZWFyczwvdGQ+ YOYwXWU9sOkoCAyiSVHez Z2pCQWeG7h0MrSwMzA3CA hxS9GcCMDvpbahBk15uM4 aOaSnWzK8VZih G8DrueP5NFWdjVAjQDeaP VW3R00py3D4CQCyHFJcDL H8qJW3gY3qkBzmnbtvoUX mdDsgdmVydGlj GMevSZlxA152ZYVgsXlmT kZlbWFsZTwvdGQ+PHRkIH X9nCmmNTofWUJjhR8sLXW lY2e5TzLuTjX2 NJdnL8IyMLNtqgddVw15p L8mHzYaXyG8MMcmB3Oqdv C3URTljCJsTObvHHI5O56 hj0N9DJQvAKLy UJV7rED8kO4qzRtrzfudf GVmdDsgdmVydGljYWwtYW plG045PMYpeIdzHt13jGH wuOkcbgL5H1Ar PjwvdHI+UJ73SAKqER95o LIjaZQuf2dvlRn8WaVkUC FbUFX2aDmmOPtuc2VhTMK fY39mdWAcf7F9 FSOkoDyzeIYpNgWwaTL8s F9nOPpbbukdn3lmhvksEd xba7rwvw61oM64Y76eWQn pZHRoPSIzMCUi KKKjcXkfla2ohQ7xCu0+P TKnlQY9gAX0eX9jYcToYp X5SEdkX256BkIfkZLbQja ua5smt4oyvKg7 OlBwWANccpKzwVlrIFR1n 0PbWh95L66iPSwpOYQwUC BaQXTuWIVaiCmupu8ekI4 wIi8+UC6rx6ye hd01kU07pPX+WUNyYBZ8s DvuPIujNWYkjN4dQTlmFz V1BHUwZcKdoZ78gVPfSDv pCn7pcNqntOyk GD8gZEXyvtzgu666IuVml 6grFAKtlMRzHJjkJNJ4E8 9xz5Z2DLGsMQUtCWG0zIY 3rD6swTnhvkbd bGVmdDsgdmVydGljYWwtY UkoW179OJZnfKslGmAraJ BrL3awriDVOS8aFyrrpFR +YAJmHIX5uOih VSmrOGFtcO4aCELvC7h5B aUxAuM2DUvcE7NyudZ0JU WziHEjWCTzaHYJrV6jncj gn7dsflcnPdXo IQWeEYe5JPm7HCRsvIxpA kLnOFM5StR5ZZO9mAQrjV 2txMyhnymzkR3vXfd+Rkl OOjwvdGQ+PHRk ZFP8aEkcXUmxVDNvkQ9iU SOxU6u0FoReXyH6NBupF5 AtvbH5RAPiuKZxJLNffNE KeZ1hiqayk1zn meyeOpTmFKJfILo8YHn0F VQqiDwsSfVoKXJ1JhG6MK E4wZThjL5dyJclxyjexS6 wOyc+TVJOOjwv dGQ+SECqLGN5kNqiZUilG BYhgR0fVTLcI5s3LwEmRk J6ATncN1OtfvT0PUWtkNF yTABhvFMUoW5a oefca5bdlewfKdQzJXAzH Bj2PDs4EBLxjOxhDhPqKN Y9HtZ6ZYR2xAIdkX8kbUr qddgheE5bNke+ EDI7PCI7OV77NZ07P3PoO jwvdGFibGU+PHRhYmxlIH dpZHRoPScxMDAlJyBzdHl mLF6zRz9mDAUl LWNvbGxhcHNlO (more content not included)... Normal [facility] Coding Summary. SPGMEeov72JOv5cWd+PG h lYWQ+LX3UDNQfC68ywPRf tV6uI8QZHOeDRjoySLBHH OiFAlUtpwOwQA9ybKVcUB Ju IC8+KO1vSFCnNyontTYhg 7D4iOY6V40yyc8bCRkuxB G6QVJoIuPgziwxl8uqjMc 6IDcuNmluOyBt GTXxeJ06XNC2aD38Rc91o BRsmSBxy7pmjHa6WqKeUF RfSDA7cIxyOJdct5AaTUC iU06uqXQzj6Z3 FMSpgMhazLAvBgSisNS2z V1zNPmnymfdr4xaeunsQs u9jr61cCOls1G9zPD2I0O cknC9VHLezOVh RcxvqFLQrQ8tepzon2crn fdrRxYiVGTpFPg1XYu6GP TydOwaRdKtJM11RJE0WHY eapXmX4AfMIOa sZaxVjO0f1G8Jy2HX7XGP dwuW1MTOSSCHEpesDI+PC 03xp10T1DcXgznKwf1CRQ eMMA7aYX0iI2q WEOzDIdxm9E2iCY6N0Ckt cMder7kc1vsGYLcGOixZ5 7rpULxe9V9OCVfpLP0KDO jdXwzFxTyfJ12 Oyc+GDWfrGaqn8ZuAqnqg 7oyn8icsDw2KmjsMKZphy HljUpqHQP9a1JkNc7aGAH ocTZ1iHS5sZ2u IjYmGiV8AIpzM388ElFzo TMyMuevX79hD0GjlDF+PH ApEjp7EISjeIpfGK7xG5W hZGRpbmctbGVm bKeyGD5xBXJvkvyySHMcf I0zGJFkA3e7VrWpKjO9DC ruR3NkBIXwwuoeKd87kS8 fOoRiBqG4QKtz Y3ZbinV7NDXptFFjBBloW WX9Y57ia3O7TPVdPWPjCT Q6xRX4dT5suVsihipqmXA mdDsgdmVydGlj BOghKNyxY255NCFjiHrpL kNvZGluZyBEYXRlOiAgMD YvMjUvMjAyNDwvdGQ+PHR jRVF8rSuvHWPm sJPyXCxsAg4jaKpbnBtoR L1xHJDkmrumYENvtI2lFX BcjCYrsXhiJF2sRRGpywj yt808AaTsIYT2 TZRovMSqV4BbtN8zXsFuH IDxROOkZ6CzzBPrNQvnR0 37KBxaDfU0RYHyeoWoQ0P sLWFsaWduOiB0 y3O3Yh5Ja6LzkbagW4Rkt XZcGtWtFoedEIu3X2PtJk wvdHI+UG02KETdOJ07CNh 1XMM0vJsrOEpa GUSlE8NrrK3jExFoNOZkO GRkOyc+PHRhYmxlIHdpZH RoPScxMDAlJyBzdHlsZT0 sTo4gEMZwNLUh aYsziXYlIsWkz7beIROkX EonEB4qrFfnY6HskHL1OI Sgy6b7Xa33L26hB7RsfOA +XSYcmUD4mMD1 iJ1nMuEyJkX5CGnyS483D cFrwPCtYuijc0ydu5xveU g8ApV5ZBKrrgJzlPurJVF 6z3OkFh15B03c IHdpZHRoPSIxNSUiIHZhb Vlbka5ysU9qMg7+PGNvbC U2zRL3oM2hExXfZpA0GRj uK233JiNqbBMe Woigi8yza9ukeSl3TeAeR JVxowFpxAutQQG7m9FrWe 37H1CuhFpkg3WdMoy2jg0 3oNJoi3L4eHQ6 L8JeNSIkfbhtrFXzpDdiL V1bAFDgdelsKBEvoC4uAE VtJ0a7OoFtPnJ3YVgxM2T oobF4UYEfyEZn REXoeCRKvB8rrckob3vqj vitCwZeWSZjRMe1DEo4TC OvdMfoJmKbENZ1QwW0LWM 8eZIylZ2foErt crhdcZ4mDod+MST8fAYny TJWKY4mXvgaeMD+PHRkIH W2gFflYRlhQIUnhG7wXUL bZ3z8OkUlJcH2 PUxuY7TbrwO6ULZcsKLgC TOkdXLLtF7znldpq2zsio mnTaXgOITnPMy0BPj2FES saWduOiBsZWZ0 NsQ3XFP6sRCxiJ0xiCypg iuixK0uGjd+QmlydGggRG O4RYm5N1ReBog3MMMseAw rKF1qkOIbKEvi Ec5ipUxsgOhgNL2iPGCtm zsso557VoQzn2nvHSUttC CePNfzCDF6J68oa0M8ZQR wIBGzGXW7gVJ3 hP0ydKxpkxkokFFnaMefb hKoxGaaTQqgDApnK455QI VcgNyyTxLaWBk4P9GuAqt 5TRYjiAukOJ9g pTVvNClrCf1rbWlkyHltG R1gHKEhtqhun010RjKif0 obDFJfrWEdQFkkNSW5A46 cy4N2KRAbXJSf POH2oPU9jA6ziIpxfgejf GVmdDsgdmVydGljYWwtYW ulH271JKTbyDcsDmLnzUx 1Q9FeZut6JREc aVukYC7hmMGxKJqnKt4ce NaddFfwDD6aLZXeqzxtw8 83RkNtl3miHMEopBXgFUt gAVD8J43ce0B3 PXNiFLUdEMJ8gNH6jE0au GlnbjogbGVmdDsgdmVydG yaGXilPFfiY024FZVcwTn nPlBhdGllbnQg CQyxMJc4G9VuTvqgdDI+P I96VWDcGR95jPBiqOPvc3 omhTn0EoFjYGQjMQV2yGj mMQxqi9IeIMZq P62cnQRuf7E7BZYkzIjjx XKmVvDksOL4zM4iNTkhjd pnd2empqclZnnwj2vrgp9 3cN90T24fKRzy ZHRoPSIzMCUiIHZhbGlnb p1vpA8cXr1+EQDcmAW3aN K6mQ3fSNJbLyI9MEuaQ43 9InRvcCIvPjxj a9ikc2iohWm8EiD3VANto jDzmWhgXFF8y1JiHc83S7 9sIHdpZHRoPSIyMCUiIHZ jcZkezh1abB2w Ii8+NNXygXS0kDO5aW6tL jWkCgX5FZcnE566NnPxtU UmHuasR85iR4KaaSI+PHR tSjo1MXQlxKzk AE0vdMFlUQrzIa8oCNJ9V jIxDbSnRWwxY8AcTPIryb wwnaphdOZ2QRWcGYLzwU3 9Ec8uyGqpVLHu mZUEaV1nurjoy6cufdolL nBnQNYpOHm3FZm8KQUysC haFhPuIWL6HsD2DBM3jYD jaG5wjKflwdtd oB1bK0CnPPOiekjnHm17f I6oGgVvAkJ3NIaeAys+UE bIHGSKM8XTPABMSIEVTFn gQTwvdGQ+PHRk NYW3kZxuFQdcOJFhcE7rO AIiK9e5CaOuAtM0LXkeF0 OoTRLijrtbBp26uH4lIzD vHkX7RImaY6Xc bzQ8XKIzjIUaDZnvEDI1I 36jh9S7JKJyESYvAOM7aZ C9bD2flSkoiruwjSQnqRi gdmVydGljYWwt PPvaO804FGEcfDdtLwW0M eC1WeM1LdP3T4CoOgo1QR InsLubNC5tjICiRJfoXu0 juPdnuJjmUF8z DIBncfrhHJUmqJ4oJFTsc ZHqvOrmBH7bYIDaeujvm2 74ItCoSGI9YUHxbDPhS1A aeQ4gMaOyDPMi FGXqW8GuiACuFNngF913D YyxAuQ8OJEoltKiY8AuUY IknBrmZyT2c8B1Tc44IkF ZZWFyczwvdGQ+ CFSeTSE6hJkxNSquICRak B1nQWIdP5t9MqNmExM4IR qbE7VmWHPzugpwMx83lK5 mSeKdLeA7NRtc J5OczsX9YLFynEQeAGgeI GV9K52le5A5NJRlTAVzJG E3jZF1nV9liRyarcydqDF mdDsgdmVydGlj OBnjLTbwA249XFSlqObrP kZlbWFsZTwvdGQ+PHRkIH L5yRnhUNlnATRpuQ2yWZL eE1a1OlSvJvL7 XCkzW2GqSYEsymlgBh98a T1oJnJvDfY5PBqkD8Pozt F1XZMbaNRdCFeuUOR0M93 hn1Q9IZPtPVGc FSW6sWG5vE6owBzolmlbj GVmdDsgdmVydGljYWwtYW lhL734WKBocBvoKt09wES ghXtafoN0P0Ng PjwvdHI+JC84BQFnUA20m LBniMWce6hnkPm6VpSzMM MxORK4yFmvKTnsw2SlXZN kZ99sxHNkc3K7 JRTanOfaiUIlCvMwiMO4a L0oMPcsbvsvu4jwirtyCd vvl1lrux26iY63W82vMKk pZHRoPSIzMCUi VVFfbEyxwh6nhG4qKm8+P LKyoGO2mMR3aJ5sLlAeDd T1PMrzA923FpLhsFLtCnc pa1vax1vrySb1 LdGqAMCqegXurFteRJE2l 1IvMf05H21gOAbrQLEzWI MvVAAfUCQqtBiauv5zjB8 wIi8+DA1jv9iv kc19gV37pRF+TMPzDQM2s ZbrNHmmSTPriG7eYVhhJj F0LGWrZbKirQ14hEMtAAp kJi6qzPbivVor VE0dSQLsojvay688TzYfd 4rzMPZbjFWsTTloBKJ5O1 1ok7Q7XLBvAQNpAKF6mSJ 1gR8nvFvuerrx bGVmdDsgdmVydGljYWwtY YnrC792HHIetPntMmCbqG KtY2rzvzUVMK3bGxdidCS +IDScQPK3pQhh FOsgDZPxoF2gOTEbK7y6E lLqBwI4WOjbC6JjxtB9SL HspWCaZFDfaRTTzE7zmpa bf4darlysRwTv KNWiWGq2YDy7XIVsfVneH bVpVKD0PeN0ZHG2nXUjaL 7gbZlijlgspN6hVsi+Rkl OOjwvdGQ+PHRk VWY4cHgcUTppNPAdeY7xR XFiH2v9OsPxErA1PKpiL6 AjqwE2LCZftXSqFBDejGC KiY6qwntcw1qp noljXwEcWFAaHVy0ARm0Y OMgsBvoZbEnMYA1IqQ0UE P9iOAnxV6fjGuvotqaiA7 wOyc+TVJOOjwv dGQ+ZKBqELG1kYxeNJbjY UMhnD7xJXDpW1w2NjMcGd Q9ZYvxF7AsdsE9MITqzUH iAVUugPAGyY5s bmfrn6erdeweAtYpYYBiS Fu5COo8LSBfuSxjQaLuWP G5ChH0FAK0yOTktV9roTu vrkgrrG7tGvi+ ERP5ZSU2HI72LG72Z2ShS jwvdGFibGU+PHRhYmxlIH dpZHRoPScxMDAlJyBzdHl qKH3fGk1wSZSo LWNvbGxhcHNlO (more content not included)... Normal [facility] Consent for Treatmenton 01-11 Consent for Treatment [id number] .[id number] Normal [facility] Oncology Progress Noteon Oncology Progress Note Chief Complaint Breast Ca; Patient states shes been very tired. Ruled out Sleep apnea. Oncological History/ROS/PE/Assess ment and Plan History of Present Illness 54-year-old female referred for breast cancer. Past medical history includes anxiety, depression, gastroesophageal reflux disease, hyperlipidemia. Outpatient medications include Wellbutrin, Flonase, Lipitor, Minastrin, Prilosec, potassium. She also has hearing loss. Her primary care provider is that is Noelle Santacruz nurse practitioner. She is recently been referred to ear nose and throat subspecialist for hearing evaluation. Mammogram from 10/21/2020 is BI-RADS Category 4 with a 2.2 cm ovoid area of abnormality in her right breast. Cystic and solid components. She had a paternal aunt with a history of breast cancer. She had a right breast excisional biopsy on 11/01/[address] Green. Pathology showed invasive ductal carcinoma grade 3, 3.5 cm in maximal diameter, margin was negative at 0.2 cm... Her tumor was ER negative, NE negative, HER-2 negative. She had follow-up right sentinel lymph node biopsy on 11/16/2020. 1 lymph node was removed and was negative for neoplasm. She is healing well from her lumpectomy and sentinel lymph node procedures. She has no specific complaints. She is eager to move forward with her treatment what ever is recommended. She denies respiratory or abdominal issues. She denies significant back pain or other complaints. Completed 4 cycles AC, did very poorly with neulasta initially AC required fluids and antiemetics Tolerated 12 weeks paclitaxel well, no neuropathy. 08/18/20 she completed radiation 06/23 to 07/25 Dr. Padilla in [place]. she is healed up. She tolerated radiation very well. 11/23/21 no issues. Some pain when stretching that right arm but no other complaints. mammogram this month was birads 2 . 6/1/23 feels pretty good overall no new bone pain, shortness of breath, chest pain, confusion, vision changes or headaches eating and drinking well, weight is maintained denies changes on self exam 01/30/24 on 01/10/24 she had bilateral mammo birad 2. no hosipttlaiztion no med changes. She has a 18yr old and 23yr old son. they are doing well. her parents are in assisted living together. mom had a few strokes. Dad is doing fine. he has alzheimers. Physical Examination General: Alert and oriented. Eye: Pupils are equal, round and reactive to light, Extraocular movements are intact, Normal conjunctiva. HENT: Normocephalic, Oral mucosa is moist, No pharyngeal erythema. Neck: Supple, Non-tender. Respiratory: Lungs are clear to auscultation. Cardiovascular: Normal rate, Regular rhythm, No murmur. Gastrointestinal: Soft, Non-tender. Lymphatics: No cervical, supraclavicular, axilla, inguinal adenopathy.. Musculoskeletal Normal range of motion. Integumentary: Warm, Dry, [place]. trace edema in legs. Neurologic: Alert, Oriented, Normal sensory. Psychiatric: Cooperative, Appropriate mood & affect. BREAST: Bilateral breast examination was performed. R breast and chest wall normal in appearance, no lumps or masses, no skin or nipple pathology, no R axillary adenopathy. L breast normal in appearance, no lumps or masses, no skin or nipple pathology, no L axillary adenopathy. Impression and Plan Right sided invasive ductal carcinoma grade 3, 3.5 cm T2N0 Stage IIa(7)/IIb(8) Triple negative s/p lumpectomy. ER negative, NE negative, HER-2 negative. completed adjuvant chemotherapy AC followed by taxol according to guidelines from November to May 2021. completed adjuvant radiation team in [place] in Jul 2021. she had [employer] 7 gene panel was negative at diagnosis. Mammogram December 2023 negative for malignancy. Next will be December 2024. ANEMIA iron repletion iv in january 2021. December 2023 labs ok, she is asymptomatic, will continue to monitor Follow-up With When Contact Information Can Solis DO, [facility] [address] [place] [address] [place] [address]- [phone] Fax Business (1) Additional Instructions: follow-up in 1 year cbc, cmp, iron studies in 1yr prior to follow-up. mammogram in a year. Can Solis DO, [facility] [address] [place], [place] [address]s[place] [address]- [phone] Fax Business (1) Additional Instructions: Medications FLUoxetine 10 mg Cap ibuprofen 600 mg Tab, 600 mg= 1 tab(s), Oral, q8hr, 1 refills Lexapro 10 mg Tab, 10 mg= 1 tab(s), Oral, Daily, 1 refills Lipitor 20 mg Tab, 20 mg= 1 tab(s), Oral, Once a day (at bedtime), 3 refills Mobic 7.5 mg Tab, 7.5 mg= 1 tab(s), Oral, Daily omeprazole 20 mg Cap-DR, 40 mg= 2 cap(s), Oral, Daily, 5 refills potassium chloride 10 mEq Cap-ER, 20 mEq= 2 cap(s), Oral, Daily, 1 refills Zofran 8 mg Tab, 8 mg= 1 tab(s), Oral, q8hr, 1 refills Vital Signs and Measurements Vital Signs and Measurements This Visit - Last 24 Hours T: 36.6 ?C (Oral) HR: 85 (Peripheral) RR: 16 BP: 94/67 SpO2: 95% HT: 150.0 cm HT: 150 cm WT: 45.7 kg (Dosing) W (more content not included)... Normal [facility] CBC w/ Auto Diffon 4 Basophils/100 WBC (Bld) 1.2 % Normal 0.0-2.0 [facility] Comment on above: Performed By: #### 2 [id number] #### [facility] [address] [place] [address] Basophils/Leukocyte s Auto (Bld) [Pure # fraction] 0.1 E9/L Normal 0.0-0.2 [facility] Comment on above: Performed By: #### 2 [id number] #### [facility] [address] [place] [address] Eosinophils (Bld) [#/Vol] 0.2 E9/L Normal 0.0-0.5 [facility] Comment on above: Performed By: #### 2 395034 #### [facility] [address] [place] [address] Eosinophils/100 WBC (Bld) 3.3 % Normal 0.0-8.0 [facility] Comment on above: Performed By: #### 2 [id number] #### [facility] [address] [place] [address] Erythrocyte distribution width (RBC) [Ratio] 13.1 % Normal 10.9-14.2 [facility] Comment on above: Performed By: #### 2 508655 #### [facility] [address] [place] [address] Hematocrit (Bld) [Volume fraction] 37.0 % Normal 34.0-46.0 [facility] Comment on above: Performed By: #### 2 656419 #### [facility] [address] [place] [address] Hemoglobin (Bld) [Mass/Vol] 12.5 g/dL Normal 12.0-16.0 [facility] Comment on above: Performed By: #### 2 573746 #### [facility] [address] [place] [address] Lymphocytes (Bld) [#/Vol] 1.2 E9/L Normal 1.0-4.0 [facility] Comment on above: Performed By: #### 2 177558 #### [facility] [address] [place] [address] Lymphocytes/100 WBC (Bld) 23.1 % Normal 14.0-50.0 [facility] Comment on above: Performed By: #### 2 267136 #### [facility] [address] [place] [address] MCH (RBC) [Entitic mass] 28.7 pg Normal 27.0-34.0 [facility] Comment on above: Performed By: #### 2 296606 #### [facility] [address] [place] [address] MCHC (RBC) [Mass/Vol] 33.9 g/dL Normal 31.4-36.0 [facility] Comment on above: Performed By: #### 2 713121 #### [facility] [address] [place] [address] MCV (RBC) [Entitic vol] 84.6 fL Normal 80.0-100.0 [facility] Comment on above: Performed By: #### 2 443250 #### [facility] [address] [place] [address] Monocytes (Bld) [#/Vol] 0.4 E9/L Normal 0.2-1.0 [facility] Comment on above: Performed By: #### 2 692830 #### [facility] [address] [place] [address] Neutrophils (Bld) [#/Vol] 3.3 E9/L Normal 2.0-7.5 [facility] Comment on above: Performed By: #### 2 847017 #### [facility] [address] [place] [address] Neutrophils/100 WBC (Bld) 63.9 % Normal 36.0-75.0 [facility] Comment on above: Performed By: #### 2 668045 #### [facility] [address] [place] [address] Platelet 249.0 E9/L Normal 150.0-500.0 [facility] Comment on above: Performed By: #### 2 949251 #### [facility] [address] [place] [address] Platelet mean volume (Bld) [Entitic vol] 8.4 fL Normal 6.4-10.8 [facility] Comment on above: Performed By: #### 2 442154 #### [facility] [address] [place] [address] RBC (Bld) [#/Vol] 4.4 E12/L Normal 4.3-5.9 [facility] Comment on above: Performed By: #### 2 815064 #### [facility] [address] [place] [address] WBC corrected for nucl RBC Auto (Bld) [#/Vol] 5.1 E9/L Normal 4.0-11.0 [facility] Comment on above: Performed By: #### 2 259549 #### [facility] [address] [place] [address] CMPon 01-26-2024 Albumin [Mass/Vol] 4.2 g/dL Normal 3.3-5.0 [facility] Comment on above: Performed By: #### 2 294378 #### [facility] [address] [place] [address] Albumin/Globulin (S) [Mass conc ratio] 1.6 Normal 1.1-2.2 [facility] Comment on above: Performed By: #### 2 079828 #### [facility] [address] [place] [address] ALP [Catalytic activity/Vol] 101 Int._Unit/L High 21-98 [facility] Comment on above: Performed By: #### 2 888802 #### [facility] [address] [place] [address] ALT No additional P-5'-P [Catalytic activity/Vol] 27 Int._Unit/L Normal 6-46 [facility] Comment on above: Performed By: #### 2 804440 #### [facility] [address] [place] [address] Anion gap [Moles/Vol] 10 mmol/L Normal 6-16 [facility] Comment on above: Performed By: #### 2 852004 #### [facility] [address] [place] [address] AST [Catalytic activity/Vol] 21 Int._Unit/L Normal 5-43 [facility] Comment on above: Performed By: #### 2 144320 #### [facility] [address] [place] [address] Bilirubin [Mass/Vol] 0.6 mg/dL Normal 0.0-1.1 [facility] Comment on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 This will help you pass the stone. ??? If told by your doctor, change your diet. You may be told to: ? Limit how much salt you eat. ? Eat more fruits and vegetables. ? Limit how much meat, poultry, fish, and eggs you eat. ??? Follow instructions from your doctor about what you may eat and drink. General instructions ??? Collect pee samples as told by your doctor. You may need to collect a pee sample: ? 24 hours after a stone comes out. ? 8?12 weeks after a stone comes out, and every 6?12 months after that. ??? Strain your pee every time you pee. Use the strainer that your doctor recommends. ??? Do not throw out the stone. Keep it so that it can be tested by your doctor. ??? Keep all follow-up visits. You may need X-rays and ultrasounds to make sure the stone has come out. How is this prevented? To prevent another kidney stone: ??? Drink enough fluid to keep your pee pale yellow. This is the best way to prevent kidney stones. ??? Eat healthy foods. ??? Avoid certain foods as told by your doctor. You may be told to eat less protein. ??? Stay at a healthy weight. Where to find more information ??? National Kidney Foundation (NKF): kidney.org ??? [employer] (UCF): urologyhealth.org Contact a doctor if: ??? You have pain that gets worse or does not get better with medicine. Get help right away if: ??? You have a fever or chills. ??? You get very bad pain. ??? You get new pain in your belly. ??? You faint. ??? You cannot pee. This information is not intended to replace advice given to you by your health care provider. Make sure you discuss any questions you have with your health care provider. Document Revised: 03/23/2023 Document Reviewed: 03/23/2023 [employer] Patient Education ? 2023 [employer]. [facility] 08-21-2024 Note ED Patient Education Note Orthopedics Joint Pain Joint pain can be caused by many things. It is likely to go away if you follow instructions from your doctor for taking care of yourself at home. Sometimes, you may need more treatment. Follow these instructions at home: Managing pain, stiffness, and swelling ??? If told, put ice on the painful area. To do this: ? If you have a removable elastic bandage, sling, or splint, take it off as told by your doctor. ? Put ice in a plastic bag. ? Place a towel between your skin and the bag. ? Leave the ice on for 20 minutes, 2?3 times a day. ? Take off the ice if your skin turns bright red. This is very important. If you cannot feel pain, heat, or cold, you have a greater risk of damage to the area. ??? Move your fingers or toes below the painful joint often. ??? Raise the painful joint above the level of your heart while you are sitting or lying down. ??? If told, put heat on the painful area. Do this as often as told by your doctor. Use the heat source that your doctor recommends, such as a moist heat pack or a heating pad. ? Place a towel between your skin and the heat source. ? Leave the heat on for 20?30 minutes. ? Take off the heat if your skin gets bright red. This is especially important if you are unable to feel pain, heat, or cold. You may have a greater risk of getting burned. Activity ??? Rest the painful joint for as long as told by your doctor. Do not do things that cause pain or make your pain worse. ??? Begin exercising or stretching the affected area, as told by your doctor. Ask your doctor what types of exercise are safe for you. ??? Return to your normal activities when your doctor says that it is safe. If you have an elastic bandage, sling, or splint: ??? Wear it as told by your doctor. Take it only as told by your doctor. ??? Loosen it your fingers or toes below the joint: ? Tingle. ? Become numb. ? Get cold and blue. ??? Keep it clean. ??? Ask your doctor if you should take it off before bathing. ??? If it is not waterproof: ? Do not let it get wet. ? Cover it with a watertight covering when you take a bath or shower. General instructions ??? Take xcew-ogp-pwfgofo and prescription medicines only as told by your doctor. This may include medicines taken by mouth or applied to the skin. ??? Do not smoke or use any products that contain nicotine or tobacco. If you need help quitting, ask your doctor. ??? Keep all follow-up visits as told by your doctor. This is important. Contact a doctor if: ??? You have pain that gets worse and does not get better with medicine. ??? Your joint pain does not get better in 3 days. ??? You have more bruising or swelling. ??? You have a fever. ??? You lose 10 lb (4.5 kg) or more without trying. Get help right away if: ??? You cannot move the joint. ??? Your fingers or toes tingle, become numb. or get cold and blue. ??? You have a fever along with a joint that is red, warm, and swollen. Summary ??? Joint pain can be caused by many things. It often goes away if you follow instructions from your doctor for taking care of yourself at home. ??? Rest the painful joint for as long as told. Do not do things that cause pain or make your pain worse. ??? Take xswv-ipc-vuwimaf and prescription medicines only as told by your doctor. This information is not intended to replace advice given to you by your health care provider. Make sure you discuss any questions you have with your health care provider. Document Revised: 11/09/2020 Document Reviewed: 11/10/2020 [employer] Patient Education ? 2023 [employer]. [facility] 08-12-2024 Note Patient Education Nephrology Dietary Guidelines to Help Prevent Kidney Stones Kidney stones are deposits of minerals and salts that form inside your kidneys. Your risk of developing kidney stones may be greater depending on your diet, your lifestyle, the medicines you take, and whether you have certain medical conditions. Most people can lower their risks of developing kidney stones by following these dietary guidelines. Your dietitian may give you more specific instructions depending on your overall health and the type of kidney stones you tend to develop. What are tips for following this plan? Reading food labels ??? Choose foods with no salt added or low-salt labels. Limit your salt (sodium) intake to less than 1,500 mg a day. ??? Choose foods with calcium for each meal and snack. Try to eat about 300 mg of calcium at each meal. Foods that contain 200?500 mg of calcium a serving include: ? 8 oz (237 mL) of milk, oyyscam-mgesltpyiupw-esgub milk, and calcium-fortifiedfruit juice. Calcium-fortified means that calcium has been added to these drinks. ? 8 oz (237 mL) of kefir, yogurt, and soy yogurt. ? 4 oz (114 g) of tofu. ? 1 oz (28 g) of cheese. ? 1 cup (150 g) of dried figs. ? 1 cup (91 g) of cooked broccoli. ? One 3 oz (85 g) can of sardines or mackerel. Most people need 1,000?1,500 mg of calcium a day. Talk to your dietitian about how much calcium is recommended for you. Shopping ??? Buy plenty of fresh fruits and vegetables. Most people do not need to avoid fruits and vegetables, even if these foods contain nutrients that may contribute to kidney stones. ??? When shopping for convenience foods, choose: ? Whole pieces of fruit. ? Pre-made salads with dressing on the side. ? Low-fat fruit and yogurt smoothies. ??? Avoid buying frozen meals or prepared deli foods. These can be high in sodium. ??? Look for foods with live cultures, such as yogurt and kefir. ??? Choose high-fiber grains, such as whole-wheat breads, oat bran, and wheat cereals. Cooking ??? Do not add salt to food when cooking. Place a salt shaker on the table and allow each person to add their own salt to taste. ??? Use vegetable protein, such as beans, textured vegetable protein (TVP), or tofu, instead of meat in pasta, casseroles, and soups. Meal planning ??? Eat less salt, if told by your dietitian. To do this: ? Avoid eating processed or pre-made food. ? Avoid eating fast food. ??? Eat less animal protein, including cheese, meat, poultry, or fish, if told by your dietitian. To do this: ? Limit the number of times you have meat, poultry, fish, or cheese each week. Eat a diet free of meat at least 2 days a week. ? Eat only one serving each day of meat, poultry, fish, or seafood. ? When you prepare animal proteins, cut pieces into small portion sizes. For most meat and fish, one serving is about the size of the palm of your hand. ??? Eat at least five servings of fresh fruits and vegetables each day. To do this: ? Keep fruits and vegetables on hand for snacks. ? Eat one piece of fruit or a handful of berries with breakfast. ? Have a salad and fruit at lunch. ? Have two kinds of vegetables at dinner. ??? You may be told to limit foods that are high in a substance called oxalate. These include: ? Spinach (cooked), rhubarb, beets, sweet potatoes, and Lao chard. ? Peanuts. ? Potato chips, german fries, and baked potatoes with skin on. ? Nuts and nut products. ? Chocolate. ??? If you regularly take a diuretic medicine, make sure to eat at least 1 or 2 servings of fruits or vegetables that are high in potassium each day. These include: ? Avocado. ? Banana. ? Mccormick, prune, carrot, or tomato juice. ? Baked potato. ? Cabbage. ? Beans and split peas. Lifestyle ??? Drink enough fluid to keep your urine pale yellow. This is the most important thing you can do. Spread your fluid intake throughout the day. ??? If you drink alcohol: ? Limit how much you have to: ? 0?1 drink a day for women who are not . ? 0?2 drinks a day for men. ? Know how much alcohol is in your drink. In the [place] one drink equals one 12 oz bottle of beer (355 mL), one 5 oz glass of wine (148 mL), or one 1? oz glass of hard liquor (44 mL). ??? Lose weight if told by your health care provider. Work with your dietitian to find an eating plan and weight loss strategies that work best for you. General information ??? Talk to your health care provider and dietitian about taking daily supplements. Depending on your health and the cause of your kidney stones, you may be told: ? Do not take high-dose supplements of vitamin C (1,000 mg a day or more). ? To take a calcium supplement. ? To take a daily probiotic supplement. ? To take other supplements such as magnesium, fish oil, or vitamin B6. ??? Take ydnl-bky-fyiuzxu and prescription medicines only as told by your health (more content not included)... [facility] 07-31-2024 Instructions Ishan Padilla MD - 07/31/2024 1:33 PM EST Mammogram 12/2024. Follow up in ~6 months documented in this encounter [facility] 07-31-2024 Note HNO ID: [id number] Author: ISHAN PADILLA MD Service: ? Author Type: Physician Type: Progress Notes Filed: 07/31/2024 13:34 Note Text: Radiation Oncology Follow Up Note PATIENT NAME: Eve Lindsey PATIENT DIAGNOSIS: Malignant neoplasm of central portion of right female breast C50.111 53 year old female with infiltrating ductal carcinoma of the Right breast, centrally located, pathologic stage pT2N0 (sn), ER-negative, NE-negative and Her2/pao not amplified, satge IIA, s/p excisional biopsy on 10/29/2020 with sentinel lymph node biopsy on 11/16/2020 (3.5 cm tumor, +grade 3 DCIS, -LVSI) and s/p 4C AC+ 12 cycles of taxol (12/29-05/26/2021). She compleeted radiation treatment to the Right breast, right supraclavicular, axillary and internal mammary nodes 4005 cGy in 15 fractions with a lumpectomy cavity boost of 1200 cGy in 6 fractiions that was completed on 07/25/2021. INTERVAL HISTORY: Eve Lindsey presents for follow up 6 months after we last saw her. The patient denies any other masses, skin changes or nipple discharge. She otherwise feels well with no other complaints. She specifically denies headache, vision changes, bone pain, chest pain, SOB, N/V, or focal neurologic deficits. Most recent mammogram: 01/11/2024 status: Post-menopausal. Air Duct Mechanic offered: Patient declines ROM: Good Recently had issues with kidney stones. ALLERGIES Allergen Reactions Codeine Rash tamsulosin (FLOMAX) 0.4 mg alendronate (FOSAMAX) 70 mg tablet Alendronate Active MG PO November 20, 2023 12:00am (Patient not taking: Reported on 07/31/2024) escitalopram oxalate (LEXAPRO) 10 mg tablet Take 10 mg by mouth once daily. acetaminophen (TYLENOL) 325 mg tablet Take 650 mg by mouth every 6 hours as needed. atorvastatin (LIPITOR) 20 mg tablet atorvastatin 20 mg tablet omeprazole (PRILOSEC) 20 mg capsule Take 40 mg by mouth once daily. potassium chloride (K-TAB) 10 mEq tablet 20 mEq once daily. PHYSICAL EXAM: VS: BP 119/82 Pulse 98 Temp 37.3 ?C (99.1 ?F) (Temporal) Wt 44.5 kg (98 lb 1.7 oz) LMP 12/22/2020 SpO2 100% KPS: 100 General Appearance: Alert and oriented. No acute distress. HEENT: NCAT. Sclera anicteric. PERRL. EOMI. Neck: Normal ROM. No palpable cervical or supraclavicular adenopathy. Chest: No respiratory distress. Lungs clear to auscultation bilaterally. Heart: Regular rate and rhythm. Abdomen: Soft. Nontender. Nondistended. Musculoskeletal: No edema. Normal ROM in extremities. No bone or spine tenderness. Neuro: Speech fluent. Gait normal. No focal deficits. Lymphatics: No palpable lymphadenopathy. Breast: Right breast with surgical scar and smaller than the left breast, otherwise without nipple inversion, skin changes, or dominant masses in either breast. The sensitive examination was discussed with the Patient or Patient's Authorized Specialty Sales Consultant. As applicable, any other physician, advance practice provider, medical student, or other health professional student that will be observing or involved in the sensitive examination for educational or training purposes was discussed with the Patient or Authorized Specialty Sales Consultant. The Patient or Authorized Specialty Sales Consultant has agreed to proceed with the sensitive examination. ASSESSMENT/PLAN: Clinically doing well. We will see her again in 5-6 months for follow-up. Mammogram 12/2024. Continue follow up with Dr. Solis and PCP. -Recommended staying hydrated. Signed by: Ishan Padilla MD cc: Rell Barbosa MD [address] [place] [id number] Can Solis [facility] 07-31-2024 History of Present illness Narrative Radiation Oncology Follow Up Note PATIENT NAME: Eve Lindsey PATIENT DIAGNOSIS: Malignant neoplasm of central portion of right female breast C50.111 53 year old female with infiltrating ductal carcinoma of the Right breast, centrally located, pathologic stage pT2N0 (sn), ER-negative, NE-negative and Her2/pao not amplified, satge IIA, s/p excisional biopsy on 10/29/2020 with sentinel lymph node biopsy on 11/16/2020 (3.5 cm tumor, +grade 3 DCIS, -LVSI) and s/p 4C AC+ 12 cycles of taxol (12/29-05/26/2021). She compleeted radiation treatment to the Right breast, right supraclavicular, axillary and internal mammary nodes 4005 cGy in 15 fractions with a lumpectomy cavity boost of 1200 cGy in 6 fractiions that was completed on 07/25/2021. INTERVAL HISTORY: Eve Lindsey presents for follow up 6 months after we last saw her. The patient denies any other masses, skin changes or nipple discharge. She otherwise feels well with no other complaints. She specifically denies headache, vision changes, bone pain, chest pain, SOB, N/V, or focal neurologic deficits. Most recent mammogram: 01/11/2024 status: Post-menopausal. Air Duct Mechanic offered: Patient declines ROM: Good Recently had issues with kidney stones. ALLERGIES Allergen Reactions Codeine Rash tamsulosin (FLOMAX) 0.4 mg alendronate (FOSAMAX) 70 mg tablet Alendronate Active MG PO November 20, 2023 12:00am (Patient not taking: Reported on 07/31/2024) escitalopram oxalate (LEXAPRO) 10 mg tablet Take 10 mg by mouth once daily. acetaminophen (TYLENOL) 325 mg tablet Take 650 mg by mouth every 6 hours as needed. atorvastatin (LIPITOR) 20 mg tablet atorvastatin 20 mg tablet omeprazole (PRILOSEC) 20 mg capsule Take 40 mg by mouth once daily. potassium chloride (K-TAB) 10 mEq tablet 20 mEq once daily. PHYSICAL EXAM: VS: BP 119/82 Pulse 98 Temp 37.3 C (99.1 F) (Temporal) Wt 44.5 kg (98 lb 1.7 oz) LMP 12/22/2020 SpO2 100% KPS: 100 General Appearance: Alert and oriented. No acute distress. HEENT: NCAT. Sclera anicteric. PERRL. EOMI. Neck: Normal ROM. No palpable cervical or supraclavicular adenopathy. Chest: No respiratory distress. Lungs clear to auscultation bilaterally. Heart: Regular rate and rhythm. Abdomen: Soft. Nontender. Nondistended. Musculoskeletal: No edema. Normal ROM in extremities. No bone or spine tenderness. Neuro: Speech fluent. Gait normal. No focal deficits. Lymphatics: No palpable lymphadenopathy. Breast: Right breast with surgical scar and smaller than the left breast, otherwise without nipple inversion, skin changes, or dominant masses in either breast. The sensitive examination was discussed with the Patient or Patient's Authorized Specialty Sales Consultant. As applicable, any other physician, advance practice provider, medical student, or other health professional student that will be observing or involved in the sensitive examination for educational or training purposes was discussed with the Patient or Authorized Specialty Sales Consultant. The Patient or Authorized Specialty Sales Consultant has agreed to proceed with the sensitive examination. ASSESSMENT/PLAN: Clinically doing well. We will see her again in 5-6 months for follow-up. Mammogram 12/2024. Continue follow up with Dr. Solis and PCP. -Recommended staying hydrated. Signed by: Ishan Padilla MD cc: Rell Barbosa MD [address] [place] [id number] Can Solis documented in this encounter [facility] 07-28-2024 Note Patient Education Nephrology ESWL for Kidney Stones Extracorporeal shock wave lithotripsy (ESWL) is a treatment that can help break up kidney stones that are too large to pass on their own. This is a nonsurgical procedure that breaks up a kidney stone with shock waves. These shock waves pass through your body and focus on the kidney stone. They cause the kidney stone to break into smaller pieces (fragments) while it is still in the urinary tract. The fragments of stone can pass more easily out of your body in the urine. Tell a health care provider about: ??? Any allergies you have. ??? All medicines you are taking, including vitamins, herbs, eye drops, creams, and gjhw-rzv-sxmcdyx medicines. ??? Any problems you or family members have had with anesthetic medicines. ??? Any bleeding problems you have. ??? Any surgeries you have had. ??? Any medical conditions you have. ??? Whether you are or may be . What are the risks? Your health care provider will talk with you about risks. These may include: ??? Infection. ??? Bleeding from the kidney. ??? Bruising of the kidney or skin. ??? Scarring of the kidney. This can lead to: ? Increased blood pressure. ? Poor kidney function. ? Return (recurrence) of kidney stones. ??? Damage to other structures or organs. This may include the liver, colon, spleen, or pancreas. ??? Blockage (obstruction) of the tube that carries urine from the kidney to the bladder (ureter). ??? Failure of the kidney stone to break into fragments. What happens before the procedure? When to stop eating and drinking Follow instructions from your health care provider about what you may eat and drink. These may include: ??? 8 hours before your procedure ? Stop eating most foods. Do not eat meat, fried foods, or fatty foods. ? Eat only light foods, such as toast or crackers. ? All liquids are okay except energy drinks and alcohol. ??? 6 hours before your procedure ? Stop eating. ? Drink only clear liquids, such as water, clear fruit juice, black coffee, plain tea, and sports drinks. ? Do not drink energy drinks or alcohol. ??? 2 hours before your procedure ? Stop drinking all liquids. ? You may be allowed to take medicines with small sips of water. If you do not follow your health care provider's instructions, your procedure may be delayed or canceled. Medicines Ask your health care provider about: ??? Changing or stopping your regular medicines. These include any diabetes medicines or blood thinners you take. ??? Taking medicines such as aspirin and ibuprofen. These medicines can thin your blood. Do not take them unless your health care provider tells you to. ??? Taking wudu-qvv-jpxbkqx medicines, vitamins, herbs, and supplements. Tests You may have tests, such as: ??? Blood tests. ??? Urine tests. ??? Imaging tests. This may include a CT scan. Surgery safety Ask your health care provider: ??? How your surgery site will be marked. ??? What steps will be taken to help prevent infection. These steps may include: ? Washing skin with a soap that kills germs. ? Receiving antibiotics. General instructions ??? If you will be going home right after the procedure, plan to have a responsible adult: ? Take you home from the hospital or clinic. You will not be allowed to drive. ? Care for you for the time you are told. What happens during the procedure? An IV will be inserted into one of your veins. ??? You may be given: ? A sedative. This helps you relax. ? Anesthesia. This will: ? Numb certain areas of your body. ? Make you fall asleep for surgery. ??? A water-filled cushion may be placed behind your kidney or on your abdomen. In some cases, you may be placed in a tub of lukewarm water. ??? Your body will be positioned in a way that makes it easier to target the kidney stone. ??? An X-ray or ultrasound exam will be done to locate your stone. ??? Shock waves will be aimed at the stone. If you are awake, you may feel a tapping sensation as the shock waves pass through your body. ??? A small mesh tube (stent) may be placed in your ureter. This will help keep urine flowing from the kidney if the fragments of the stone have been blocking the ureter. The stent will be removed at a later time by your health care provider. The procedure may vary among health care providers and hospitals. What happens after the procedure? Your blood pressure, heart rate, breathing rate, and blood oxygen level will be monitored until you leave the hospital or clinic. ??? You may have an X-ray after the procedure to see how many of the kidney stones were broken up. This will also show how much of the stone has passed. If there are still large fragments after treatment, you may need to have a second procedure at a later time. This information is not intended to replace advice given to you b (more content not included)... [facility] 07-21-2024 Note ED Patient Education Note Obstetrics and Gynecology Urinary Tract Infection, Adult A urinary tract infection (UTI) is an infection of any part of the urinary tract. The urinary tract includes the kidneys, ureters, bladder, and urethra. These organs make, store, and get rid of urine in the body. An upper UTI affects the ureters and kidneys. A lower UTI affects the bladder and urethra. What are the causes? Most urinary tract infections are caused by bacteria in your genital area around your urethra, where urine leaves your body. These bacteria grow and cause inflammation of your urinary tract. What increases the risk? You are more likely to develop this condition if: ??? You have a urinary catheter that stays in place. ??? You are not able to control when you urinate or have a bowel movement (incontinence). ??? You are female and you: ? Use a spermicide or diaphragm for control. ? Have low estrogen levels. ? Are . ??? You have certain genes that increase your risk. ??? You are sexually active. ??? You take antibiotic medicines. ??? You have a condition that causes your flow of urine to slow down, such as: ? An enlarged prostate, if you are male. ? Blockage in your urethra. ? A kidney stone. ? A nerve condition that affects your bladder control (neurogenic bladder). ? Not getting enough to drink, or not urinating often. ??? You have certain medical conditions, such as: ? Diabetes. ? A weak disease-fighting system (immunesystem). ? Sickle cell disease. ? Gout. ? Spinal cord injury. What are the signs or symptoms? Symptoms of this condition include: ??? Needing to urinate right away (urgency). ??? Frequent urination. This may include small amounts of urine each time you urinate. ??? Pain or burning with urination. ??? Blood in the urine. ??? Urine that smells bad or unusual. ??? Trouble urinating. ??? Cloudy urine. ??? Vaginal discharge, if you are female. ??? Pain in the abdomen or the lower back. You may also have: ??? Vomiting or a decreased appetite. ??? Confusion. ??? Irritability or tiredness. ??? A fever or chills. ??? Diarrhea. The first symptom in older adults may be confusion. In some cases, they may not have any symptoms until the infection has worsened. How is this diagnosed? This condition is diagnosed based on your medical history and a physical exam. You may also have other tests, including: ??? Urine tests. ??? Blood tests. ??? Tests for STIs (sexually transmitted infections). If you have had more than one UTI, a cystoscopy or imaging studies may be done to determine the cause of the infections. How is this treated? Treatment for this condition includes: ??? Antibiotic medicine. ??? Ohzd-zhe-btkyhzd medicines to treat discomfort. ??? Drinking enough water to stay hydrated. If you have frequent infections or have other conditions such as a kidney stone, you may need to see a health care provider who specializes in the urinary tract (urologist). In rare cases, urinary tract infections can cause sepsis. Sepsis is a life-threatening condition that occurs when the body responds to an infection. Sepsis is treated in the hospital with IV antibiotics, fluids, and other medicines. Follow these instructions at home: Medicines ??? Take fdzv-ona-qjsxueg and prescription medicines only as told by your health care provider. ??? If you were prescribed an antibiotic medicine, take it as told by your health care provider. Do not stop using the antibiotic even if you start to feel better. General instructions ??? Make sure you: ? Empty your bladder often and completely. Do not hold urine for long periods of time. ? Empty your bladder after sex. ? Wipe from front to back after urinating or having a bowel movement if you are female. Use each tissue only one time when you wipe. ??? Drink enough fluid to keep your urine pale yellow. ??? Keep all follow-up visits. This is important. Contact a health care provider if: ??? Your symptoms do not get better after 1?2 days. ??? Your symptoms go away and then return. Get help right away if: ??? You have severe pain in your back or your lower abdomen. ??? You have a fever or chills. ??? You have nausea or vomiting. Summary ??? A urinary tract infection (UTI) is an infection of any part of the urinary tract, which includes the kidneys, ureters, bladder, and urethra. ??? Most urinary tract infections are caused by bacteria in your genital area. ??? Treatment for this condition often includes antibiotic medicines. ??? If you were prescribed an antibiotic medicine, take it as told by your health care provider. Do not stop using the antibiotic even if you start to feel better. ??? Keep all follow-up visits. This is important. This information is not intended to replace advice given to you by your health care provider. Make mau (more content not included)... [facility] 06-24-2024 History of Present illness Narrative Images from the original note were not included. Eve Lindsey is a 54 y.o. female presents with chief complaint of left shoulder pain and stiffness. HPI: Eve is here with her prior rotator cuff repair in May of 2023. She has been dealing with osteoporosis. She tried Fosamax but had esophagitis and had bleeding with black emesis. Subsequently is contemplating other management. She has upcoming scan next year. She has had some discomfort of the shoulder. She states it has actually gotten somewhat better since making the appointment. She has seen physician business services assistant Gaye Rai in the past. SUBJECTIVE: MEDICATIONS: Current Outpatient Medications Medication Instructions acetaminophen (TYLENOL) 650 mg, Every 6 hours PRN atorvastatin (LIPITOR) 20 mg, Daily famotidine (Pepcid) 20 MG tablet TAKE 1 TABLET BY MOUTH UP TO TWICE DAILY NEEDED FOR HEARTBURN ibuprofen 200 MG tablet Take by mouth. modafinil (Provigil) 200 MG tablet Daily Omeprazole 20 MG tablet delayed-release potassium chloride CR (Klor-Con M10) 10 MEQ ER tablet 20 mEq, Daily PROzac 10 mg, Every 24 hours Vitamin D-Vitamin K (DosoKap) 5500-200 UNIT-MCG tablet 1 tablet, Daily ALLERGIES: Allergies Allergen Reactions Codeine Rash Other Reaction(s): Not available SURGICAL HISTORY: Past Surgical History: Procedure Laterality Date SHOULDER SURGERY Left 05/18/2023 Arthroscopy, RCR w/ Dr. Sarahi Zavaleta @ [facility] TOTAL SHOULDER ARTHROPLASTY FAMILY HISTORY: Family History Problem Relation Name Age of Onset Diabetes Father Jamar holloway Osteoporosis Father Jamar holloway Cancer Father's Sister Kimberly hunt SOCIAL HISTORY: Social History Tobacco Use Smoking status: Never Smokeless tobacco: Never Vaping Use Vaping status: Never Used Substance Use Topics Alcohol use: Never Drug use: Never Depression: Not at risk (2024) Received from [facility] PHQ-2 PHQ-2 score: 1 REVIEW OF SYMPTOMS: The review of systems, history and current medications list are all reviewed today. OBJECTIVE: Visit Vitals Ht 4' 11 Wt 102 lb BMI 20.60 kg/m Smoking Status Never BSA 1.39 m Physical Exam On physical exam, the incisions are clean, dry and intact. Swelling is resolved. There is no palpable loose body or mass. She has near full range of motion with guarding in the overhead the last 20 degrees. Strength is improving. Pain is fairly well controlled. She is neurovascularly intact distally. X-rays, permanently saved to the patient's record, are reviewed shows diffuse osteoporosis with mild to moderate degenerative changes. Questionable calcification of the subacromial space versus anchor pull out with resorption. ASSESSMENT AND PLAN: Assessment/Plan Follow up left rotator cuff repair; advanced osteoporosis; degenerative changes; questionable dislodged anchor. The nature of the findings were discussed at length. This is a very challenging situation. Her bone quality is poor. We discussed appropriate nutrition as well as further pharmacologic management with her primary care and or property adjuster for her density. 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 We discussed the potential of infusion management. Ice, Tylenol, wall, pendulum and silvano exercises were reviewed. We discussed injection therapy up to three per year which has provided some help in the past. We discussed the potential role of updated MRI and consideration of repeat arthroscopy. Concern for bone quality is an issue here and the potential need for repeat fixation of her cuff. She would like to keep a close watchful eye. Injection was offered but declined. She feels as though she is stable and will continue close watchful eye with wall, pendulum and silvano exercises. Follow up will be p.r.n.. She voices verbal understanding. She is discharged in stable condition. The patient was seen and examined. From the time of check in, nurse triage, vital signs, x-ray, x-ray interpretation, review of systems, comprehensive history and physical exam as well as setting up treatment plan and further management took 35 minutes. Cosigned by Sarahi Zavaleta DO at 06/27/2024 2:21 PM EST documented in this encounter [facility] 04-08-2024 History of Present illness Narrative Subjective Patient ID: Eve Lindsey is a 54 y.o. female who presents for Hearing Loss (Yearly edgar ) HPI This patient presents for recheck of bilateral hearing loss. Review of Systems Patient has not noticed any difficulties with worsening of her hearing. Denies any dizziness or tinnitus. The rest of her review of systems is negative. Objective ENT Physical Exam General Examination: General overview: Normal, age-appropriate, no evidence of distress Head: Normocephalic, atraumatic Eyes: Pupils are equally round and reactive to light and accommodation, extraocular muscles are intact Ears: External ear architecture within normal limits, ear canals are patent, tympanic membranes are intact. Her audiogram reveals bilateral downsloping sensorineural hearing loss which is essentially unchanged from prior evaluation. Nose: External nose unremarkable, nares patent, septum intact, no evidence of congestion. Oral cavity: Mucosa moist, no evidence of ulcer, mass, or lesion Throat: Clear Neck/thyroid: Neck supple, full range of motion, no cervical lymphadenopathy, no evidence of thyromegaly Lymph nodes: No cervical lymphadenopathy Skin: Warm and dry, no evidence of suspicious lesions, no rash Heart: No jugular venous distention, point of maximal impulse normal Lungs: Good air movement, no audible wheezing, no shortness of breath Chest: Normal shape and expansion Abdomen: Normal, soft, nontender, nondistended Musculoskeletal: Cervical spine normal, full range of motion Extremities: No clubbing, cyanosis, or edema Peripheral pulses: 2+ radial, 2+ carotid Neurologic: Alert and oriented, cranial nerves 2-12 are grossly intact Psych: Alert and oriented, normal affect, no evidence of distress Assessment/Plan Diagnoses and all orders for this visit: Sensorineural hearing loss (SNHL) of both ears Comments: Hearing is currently stable, patient to follow up with repeat audiogram in 1 year. documented in this encounter [facility] 04-01-2024 History of Present illness Narrative History: Patient was seen for an annual audiological evaluation. History is positive for hearing loss and bilateral tinnitus. She does not perceive any changes in hearing sensitivity. Otoscopic Exam: Revealed occlusive cerumen, bilaterally, which was removed prior to testing, without incident. Pure Tone Audiometry Audio indicated borderline normal hearing sloping to a mild to moderate sensorineural hearing loss, bilaterally. Today's audio is consistent with previous results recorded 04-11-2022. Speech Audiometry Right SRT = 25 dB and word discrimination score at 60 dBHL = 100% Left SRT = 25 dB and word discrimination score at 60 dBHL = 100% Tympanometry Normal tympanograms, bilaterally, indicating normal middle ear function Impressions: Dr. Mccallum 04-08-2024 documented in this encounter [facility] 2024 Note HNO ID: [id number] Author: ISHAN PDAILLA MD Service: ? Author Type: Physician Type: Progress Notes Filed: 2024 14:56 Note Text: Radiation Oncology Follow Up Note PATIENT NAME: Eve Lindsey PATIENT DIAGNOSIS: Malignant neoplasm of central portion of right female breast C50.111 53 year old female with infiltrating ductal carcinoma of the Right breast, centrally located, pathologic stage pT2N0 (sn), ER-negative, NE-negative and Her2/pao not amplified, satge IIA, s/p excisional biopsy on 10/29/2020 with sentinel lymph node biopsy on 11/16/2020 (3.5 cm tumor, +grade 3 DCIS, -LVSI) and s/p 4C AC+ 12 cycles of taxol (12/29-05/26/2021). She compleeted radiation treatment to the Right breast, right supraclavicular, axillary and internal mammary nodes 4005 cGy in 15 fractions with a lumpectomy cavity boost of 1200 cGy in 6 fractiions that was completed on 07/25/2021. INTERVAL HISTORY: Eve Lindsey presents for follow up 6 months after we last saw her. The patient denies any other masses, skin changes or nipple discharge. She otherwise feels well with no other complaints. She specifically denies headache, vision changes, bone pain, chest pain, SOB, N/V, or focal neurologic deficits. Most recent mammogram: 01/08/2024, BIRADS-2 status: Post-menopausal. Air Duct Mechanic offered: Patient declines ROM: Good ALLERGIES Allergen Reactions Codeine Rash alendronate (FOSAMAX) 70 mg tablet Alendronate Active MG PO November 20, 2023 12:00am escitalopram oxalate (LEXAPRO) 10 mg tablet Take 10 mg by mouth once daily. acetaminophen (TYLENOL) 325 mg tablet Take 650 mg by mouth every 6 hours as needed. atorvastatin (LIPITOR) 20 mg tablet atorvastatin 20 mg tablet omeprazole (PRILOSEC) 20 mg capsule Take 40 mg by mouth once daily. potassium chloride (K-TAB) 10 mEq tablet 20 mEq once daily. PHYSICAL EXAM: VS: BP 105/74 Pulse 94 Temp 37.1 ?C (98.8 ?F) (Temporal) Wt 45.4 kg (100 lb 1.4 oz) LMP 12/22/2020 SpO2 95% KPS: 100 General Appearance: Alert and oriented. No acute distress. HEENT: NCAT. Sclera anicteric. PERRL. EOMI. Neck: Normal ROM. No palpable cervical or supraclavicular adenopathy. Chest: No respiratory distress. Lungs clear to auscultation bilaterally. Heart: Regular rate and rhythm. Abdomen: Soft. Nontender. Nondistended. Musculoskeletal: No edema. Normal ROM in extremities. No bone or spine tenderness. Neuro: Speech fluent. Gait normal. No focal deficits. Lymphatics: No palpable lymphadenopathy. Breast: Right breast with surgical scar and smaller than left breast, otherwise bilateral breasts without nipple inversion, skin changes, or dominant masses in either breast. ASSESSMENT/PLAN: Clinically doing well. We will see her again in 6 months for follow-up. Mammogram 12/2024. Signed by: Ishan Padilla MD cc: Rell Barbosa [address] [place] [id number] Can Solis [facility] 2024 History of Present illness Narrative Radiation Oncology Follow Up Note PATIENT NAME: Eve Lindsey PATIENT DIAGNOSIS: Malignant neoplasm of central portion of right female breast C50.111 53 year old female with infiltrating ductal carcinoma of the Right breast, centrally located, pathologic stage pT2N0 (sn), ER-negative, NE-negative and Her2/pao not amplified, satge IIA, s/p excisional biopsy on 10/29/2020 with sentinel lymph node biopsy on 11/16/2020 (3.5 cm tumor, +grade 3 DCIS, -LVSI) and s/p 4C AC+ 12 cycles of taxol (12/29-05/26/2021). She compleeted radiation treatment to the Right breast, right supraclavicular, axillary and internal mammary nodes 4005 cGy in 15 fractions with a lumpectomy cavity boost of 1200 cGy in 6 fractiions that was completed on 07/25/2021. INTERVAL HISTORY: Eve Lindsey presents for follow up 6 months after we last saw her. The patient denies any other masses, skin changes or nipple discharge. She otherwise feels well with no other complaints. She specifically denies headache, vision changes, bone pain, chest pain, SOB, N/V, or focal neurologic deficits. Most recent mammogram: 01/08/2024, BIRADS-2 status: Post-menopausal. Air Duct Mechanic offered: Patient declines ROM: Good ALLERGIES Allergen Reactions Codeine Rash alendronate (FOSAMAX) 70 mg tablet Alendronate Active MG PO November 20, 2023 12:00am escitalopram oxalate (LEXAPRO) 10 mg tablet Take 10 mg by mouth once daily. acetaminophen (TYLENOL) 325 mg tablet Take 650 mg by mouth every 6 hours as needed. atorvastatin (LIPITOR) 20 mg tablet atorvastatin 20 mg tablet omeprazole (PRILOSEC) 20 mg capsule Take 40 mg by mouth once daily. potassium chloride (K-TAB) 10 mEq tablet 20 mEq once daily. PHYSICAL EXAM: VS: BP 105/74 Pulse 94 Temp 37.1 C (98.8 F) (Temporal) Wt 45.4 kg (100 lb 1.4 oz) LMP 12/22/2020 SpO2 95% KPS: 100 General Appearance: Alert and oriented. No acute distress. HEENT: NCAT. Sclera anicteric. PERRL. EOMI. Neck: Normal ROM. No palpable cervical or supraclavicular adenopathy. Chest: No respiratory distress. Lungs clear to auscultation bilaterally. Heart: Regular rate and rhythm. Abdomen: Soft. Nontender. Nondistended. Musculoskeletal: No edema. Normal ROM in extremities. No bone or spine tenderness. Neuro: Speech fluent. Gait normal. No focal deficits. Lymphatics: No palpable lymphadenopathy. Breast: Right breast with surgical scar and smaller than left breast, otherwise bilateral breasts without nipple inversion, skin changes, or dominant masses in either breast. ASSESSMENT/PLAN: Clinically doing well. We will see her again in 6 months for follow-up. Mammogram 12/2024. Signed by: Ishan Padilla MD cc: [place]ell [place] [address] Dr. Can Solis documented in this encounter [facility] 01-17-2024 Evaluation note Diagnosis Onset Date BMI 20.0-20.9, adult acute Depression acute Excessive daytime sleepiness acute Generalized anxiety disorder acute GERD without esophagitis acu te History of anemia acute Kyphosis of cervical region acute [facility] Work Phone: 1(493) 131-897302-15-2024 History of Present illness Narrative* Ashley Morocho, PT - 09/27/2023 7:30 AM EST Physical Therapy Physical Therapy Evaluation Visit Patient Name: Eve Lindsey Today's Date: 09/27/2023 Encounter Diagnoses Name Primary? Impingement of left shoulder Yes Chronic left shoulder pain S/P arthroscopy of left shoulder Time In: 7:30 am Time out: 8:20 am Supervised Time: 45 Min Total Time: 50 Min Visit Number: 28 (3/6 visits approved 09/10/2023 thru 10/10/2023) Chief Complaint: Left shoulder pain post left shoulder RTC repair with SAD performed by Dr Zavaleta on 05/18/23 PRECAUTIONS: Left shoulder RTC Protocol (Dr Zavaleta); Subjective History: 53 yo female with 1+ year history of progressive pain with failure of conservative management with elective left should arthroscopy including RTC Repair and SAD with Dr Zavaleta on 05/18/23. Pain: Reports more consistent progress in left shoulder ROM, strength, and functional mobility. Objective: Re-Examination performed on 09/19/23-DBO Left shoulder PROM in supine: Flexion 165 degrees Abduction 115 degrees ER @ 45 degrees abduction 50 degrees IR @ 45 degrees 55 degrees AROM in standing Flexion 145 degrees Abduction 95 degrees ER Reach to C6 IR Reach to L2 Strength in available ranges 4 to 4+/5. 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 Manual: Grade I shoulder mobilization and PROM, upper trapezius and general STM for promotion of passive tissue mobility/ROM and pain reduction; Possible inclusion of cervical manual therapy and mobilization to assist with rehabilitation of the shoulder secondary to forward head postural dysfunction and cervical/scapular muscle attachment relationship (15 Min) Therapeutic Exercise: Per Exercise Grid found in patient documents including phase II AROM focused progression including passive prolonged stretching and adhesive capsulitis stretching program (15 Min); UBE (5 Min-Unsupervised) Therapeutic Activity: Exercises to improve dynamic activities, functional tasks, functional mobility to return to prior activity level (PRN) Neuromuscular Re-education: Neuromuscular reeducation including muscle facilitation, ergonomic and postural training, cervical/scapular/core strengthening progression per protocol (15 Min including MET techniques 10 second hold/Relax cycles in all 6 left shoulder planes) Modalities: Electrical Stimulation/Ice to the affected shoulder seated post conclusion of treatmentIFC High/Low Sweep for inflammation and pain control (PRN); UltraSound-(PRN); Mechanical cervical traction for decompression (PRN) Goals Short Term Goals: To be met by The patient to demonstrate 50% reduction in pain to at worst 4/10 intensity in 2-4 weeks and by >75% to intermittent 0-2/10 intensity in 4-6 weeks (Goal partially met 07/31/23-DBO) The patient to be knowledgeable in postural correction program to reduce pain, promote tissue healing, and prevent postural related complications in 2 weeks (Goal Met-07/31/23-DBO) The patient to have PROM of flexion 140 degrees, abduction 100 degrees, ER 60 degrees, and IR 60 degrees by Post-op week 6 (Goal partially met 07/31/23-DBO) The patient to demonstrate AROM of flexion 140 degrees, abduction 100 degrees, ER reach to C6, and IR reach to L3 by Post-op week 10 (Goal partially met 07/31/23-DBO) The patient to demonstrate RTC strength 4/5 or better by post-op week 10 (Goal partially met 07/31/23-DBO) The patient to resume all previously performed home activity including normal ADL, intermittent sleep on affected side, full resumption of household management activity, and be prepared to participate in aggressive strengthening program by post-op week (Goal partially met 07/31/23-DBO) The patient to score <10% residual functional deficit via Quick DASH f/u difficulty questionnaire, have functional shoulder ROM, demonstrate 4+/5 or greater strength, and be successful with long-term independent prophylactic management including participation in daily flexibility and RTC strengthening program expected to be performed for at minimum 1 year from DOS to be met by conclusion of PTexpected in post-op weeks 12-16 (Goal partially met 07/31/23-DBO) Rehab Potential: Good PT Assessment The patient has participated in 28 outpatient PT sessions since start of care on 06/06/23 post leftshoulder arthroscopy with Dr Zavaleta performed on 05/18/23. Reports good reduction in pain and tolerance to active exercise post injection Patient is now 132 days post surgery and is tolerating phase II-III post surgical AA/AROM exercisesand light resistance to tolerance. Received cortisone per AYAN Adame on August 01 with goodimprovement in pain and AROM tolerance. Case has been complicated by adhesive capsulitis/frozen shoulder post surgery. Good progress since receiving cortisone injection on August 01. More consistent progress in ROM, strength, and function in the last 2-4 weeks. Progressing exercises as tolerated. Continue to progress exercises with improving tolerance. Plan: Recommend continuation of outpatient PT 1-2 times/week for up to 6 additional weeks per above PT POC pending patient progress and medical necessity standards (09/07/23-DBO) I hereby deem this POC medically necessary. Please sign below and fax back to the number below. Physician Signature: Date: documented in this encounterMissouri Southern [id number] History of Present illness Narrative* Ashley Morocho, PT - 09/19/2023 7:30 AM EST Physical Therapy Physical Therapy Evaluation Visit Patient Name: Eve Lindsey Today's Date: 09/19/2023 Encounter Diagnoses Name Primary? Impingement of left shoulder Yes Chronic left shoulder pain S/P arthroscopy of left shoulder Time In: 7:30 am Time out: 8:20 am Supervised Time: 45 Min Total Time: 50 Min Visit Number: 27 (2/6 visits approved 09/10/2023 thru 10/10/2023) Chief Complaint: Left shoulder pain post left shoulder RTC repair with SAD performed by Dr Zavaleta on 05/18/23 PRECAUTIONS: Left shoulder RTC Protocol (Dr Zavaleta); Subjective History: 53 yo female with 1+ year history of progressive pain with failure of conservative management with elective left should arthroscopy including RTC Repair and SAD with Dr Zavaleta on 05/18/23. Pain: Reports her left arm felt improvement following last session on 09/14/23 with decreased pain and improved motion for approximately 5 days. Last 2-days has noticed increased tightness and pain with active use. Remains diligent with HEP Objective: Re-Examination performed on 09/19/23-DBO Left shoulder PROM in supine: Flexion 165 degrees Abduction 115 degrees ER @ 45 degrees abduction 50 degrees IR @ 45 degrees 55 degrees AROM in standing Flexion 145 degrees Abduction 95 degrees ER Reach to C6 IR Reach to L2 Strength in available ranges 4 to 4+/5. 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 Manual: Grade I shoulder mobilization and PROM, upper trapezius and general STM for promotion of passive tissue mobility/ROM and pain reduction; Possible inclusion of cervical manual therapy and mobilization to assist with rehabilitation of the shoulder secondary to forward head postural dysfunction and cervical/scapular muscle attachment relationship (15 Min) Therapeutic Exercise: Per Exercise Grid found in patient documents including phase II AROM focused progression including passive prolonged stretching and adhesive capsulitis stretching program (15 Min); UBE (5 Min-Unsupervised) Therapeutic Activity: Exercises to improve dynamic activities, functional tasks, functional mobility to return to prior activity level (PRN) Neuromuscular Re-education: Neuromuscular reeducation including muscle facilitation, ergonomic and postural training, cervical/scapular/core strengthening progression per protocol (15 Min including MET techniques 10 second hold/Relax cycles in all 6 left shoulder planes) Modalities: Electrical Stimulation/Ice to the affected shoulder seated post conclusion of treatmentIFC High/Low Sweep for inflammation and pain control (PRN); UltraSound-(PRN); Mechanical cervical traction for decompression (PRN) Goals Short Term Goals: To be met by The patient to demonstrate 50% reduction in pain to at worst 4/10 intensity in 2-4 weeks and by >75% to intermittent 0-2/10 intensity in 4-6 weeks (Goal partially met 07/31/23-DBO) The patient to be knowledgeable in postural correction program to reduce pain, promote tissue healing, and prevent postural related complications in 2 weeks (Goal Met-07/31/23-DBO) The patient to have PROM of flexion 140 degrees, abduction 100 degrees, ER 60 degrees, and IR 60 degrees by Post-op week 6 (Goal partially met 07/31/23-DBO) The patient to demonstrate AROM of flexion 140 degrees, abduction 100 degrees, ER reach to C6, and IR reach to L3 by Post-op week 10 (Goal partially met 07/31/23-DBO) The patient to demonstrate RTC strength 4/5 or better by post-op week 10 (Goal partially met 07/31/23-DBO) The patient to resume all previously performed home activity including normal ADL, intermittent sleep on affected side, full resumption of household management activity, and be prepared to participate in aggressive strengthening program by post-op week (Goal partially met 07/31/23-DBO) The patient to score <10% residual functional deficit via Quick DASH f/u difficulty questionnaire, have functional shoulder ROM, demonstrate 4+/5 or greater strength, and be successful with long-term independent prophylactic management including participation in daily flexibility and RTC strengthening program expected to be performed for at minimum 1 year from DOS to be met by conclusion of PTexpected in post-op weeks 12-16 (Goal partially met 07/31/23-DBO) Rehab Potential: Good PT Assessment The patient has participated in 27 outpatient PT sessions since start of care on 06/06/23 post leftshoulder arthroscopy with Dr Zavaleta performed on 05/18/23. Reports good reduction in pain and tolerance to active exercise post injection Patient is now 124 days post surgery and is tolerating phase II-III post surgical AA/AROM exercisesand light resistance to tolerance. Received cortisone per AYAN Adame on August 01 with goodimprovement in pain and AROM tolerance. Case has been complicated by adhesive capsulitis/frozen shoulder post surgery. Good progress since receiving cortisone injection on August 01. Re- evaluation as above with findings of fair improvement in A/PROM and strength. Advanced exercises as tolerated. Continue to progress exercises with improving tolerance. Plan: Recommend continuation of outpatient PT 1-2 times/week for up to 6 additional weeks per above PT POC pending patient progress and medical necessity standards (09/07/23-DBO) I hereby deem this POC medically necessary. Please sign below and fax back to the number below. Physician Signature: Date: documented in this encounterMissouri Southern [id number] History of Present illness Narrative* Ashley Morocho, PT - 09/14/2023 4:15 PM EST Physical Therapy Physical Therapy Evaluation Visit Patient Name: Eve Lindsey Today's Date: 09/14/2023 Encounter Diagnoses Name Primary? Impingement of left shoulder Yes Chronic left shoulder pain S/P arthroscopy of left shoulder Time In: 4:15 pm Time out: 5:05 pm Supervised Time: 45 Min Total Time: 50 Min Visit Number: 26 (1/6 visits approved 09/10/2023 thru 10/10/2023) Chief Complaint: Left shoulder pain post left shoulder RTC repair with SAD performed by Dr Zavaleta on 05/18/23 PRECAUTIONS: Left shoulder RTC Protocol (Dr Zavaleta); Subjective History: 53 yo female with 1+ year history of progressive pain with failure of conservative management with elective left should arthroscopy including RTC Repair and SAD with Dr Zavaleta on 05/18/23. Pain: Reports pain 3/10 in L medial shoulder and down medial arm. Objective: Re-Examination performed on 09/07/23-DBO Left shoulder PROM in supine: Flexion 162 degrees Abduction 115 degrees ER @ 45 degrees abduction 46 degrees IR @ 45 degrees 48 degrees AROM in standing Flexion 135 degrees Abduction 85 degrees ER Reach to C5 IR Reach to L4 Strength in available ranges 4/5. *Significant posterior capsulitis consistent with frozen shoulder that has been present throughout intervention. 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 Manual: Grade I shoulder mobilization and PROM, upper trapezius and general STM for promotion of passive tissue mobility/ROM and pain reduction; Possible inclusion of cervical manual therapy and mobilization to assist with rehabilitation of the shoulder secondary to forward head postural dysfunction and cervical/scapular muscle attachment relationship (15 Min) Therapeutic Exercise: Per Exercise Grid found in patient documents including phase II AROM focused progression including passive prolonged stretching and adhesive capsulitis stretching program (15 Min); UBE (5 Min-Unsupervised) Therapeutic Activity: Exercises to improve dynamic activities, functional tasks, functional mobility to return to prior activity level (PRN) Neuromuscular Re-education: Neuromuscular reeducation including muscle facilitation, ergonomic and postural training, cervical/scapular/core strengthening progression per protocol (15 Min including MET techniques 10 second hold/Relax cycles in all 6 left shoulder planes) Modalities: Electrical Stimulation/Ice to the affected shoulder seated post conclusion of treatmentIFC High/Low Sweep for inflammation and pain control (PRN); UltraSound-(PRN); Mechanical cervical traction for decompression (PRN) Goals Short Term Goals: To be met by The patient to demonstrate 50% reduction in pain to at worst 4/10 intensity in 2-4 weeks and by >75% to intermittent 0-2/10 intensity in 4-6 weeks (Goal partially met 07/31/23-DBO) The patient to be knowledgeable in postural correction program to reduce pain, promote tissue healing, and prevent postural related complications in 2 weeks (Goal Met-07/31/23-DBO) The patient to have PROM of flexion 140 degrees, abduction 100 degrees, ER 60 degrees, and IR 60 degrees by Post-op week 6 (Goal partially met 07/31/23-DBO) The patient to demonstrate AROM of flexion 140 degrees, abduction 100 degrees, ER reach to C6, and IR reach to L3 by Post-op week 10 (Goal partially met 07/31/23-DBO) The patient to demonstrate RTC strength 4/5 or better by post-op week 10 (Goal partially met 07/31/23-DBO) The patient to resume all previously performed home activity including normal ADL, intermittent sleep on affected side, full resumption of household management activity, and be prepared to participate in aggressive strengthening program by post-op week (Goal partially met 07/31/23-DBO) The patient to score <10% residual functional deficit via Quick DASH f/u difficulty questionnaire, have functional shoulder ROM, demonstrate 4+/5 or greater strength, and be successful with long-term independent prophylactic management including participation in daily flexibility and RTC strengthening program expected to be performed for at minimum 1 year from DOS to be met by conclusion of PTexpected in post-op weeks 12-16 (Goal partially met 07/31/23-DBO) Rehab Potential: Good PT Assessment The patient has participated in 26 outpatient PT sessions since start of care on 06/06/23 post leftshoulder arthroscopy with Dr Zavaleta performed on 05/18/23. Reports good reduction in pain and tolerance to active exercise post injection Patient is now 119 days post surgery and is tolerating phase II-III post surgical AA/AROM exercisesand light resistance to tolerance. Received cortisone per AYAN Adame on August 01 with goodimprovement in pain and AROM tolerance. Case has been complicated by adhesive capsulitis/frozen shoulder post surgery. Good progress since receiving cortisone injection on August 01. Continue to progress exercises with improving tolerance. Plan: Recommend continuation of outpatient PT 1-2 times/week for up to 6 additional weeks per above PT POC pending patient progress and medical necessity standards (09/07/23-DBO) I hereby deem this POC medically necessary. Please sign below and fax back to the number below. Physician Signature: Date: documented in this encounterMissouri Southern [id number] History of Present illness Narrative* AYAN Sanchez - 09/12/2023 3:30 PM EST GENERAL HISTORY AND PHYSICAL: NAME: Eve Lindsey : 1970 HISTORY OF PRESENT ILLNESS: Eve Lindsey is an 53 y.o. female is here for orthopedic evaluation left shoulder motion check after developing secondary adhesive capsulitis status post shoulder arthroscopy with Dr. Zavaleta. She is getting some better still having a lot of discomfort daytime and nighttime but has been going to therapy and the therapist has recommended another 6 weeks. PAST MEDICAL HISTORY: Past Medical History: Diagnosis Date Arthritis Bursitis of shoulder Cancer ([facility]/HCC) Depression ([facility]/HCC) Frozen shoulder HLD (hyperlipidemia) (CMS/[facility]) Rotator cuff syndrome PAST SURGICAL HISTORY: Past Surgical History: Procedure Laterality Date SHOULDER SURGERY Left 05/18/2023 Arthroscopy, RCR w/ Dr. Sarahi Zavaleta @ [facility] TOTAL SHOULDER ARTHROPLASTY SOCIAL HISTORY: Social History Occupational History Not on file Tobacco Use Smoking status: Never Smokeless tobacco: Never Vaping Use Vaping Use: Never used Substance and Sexual Activity Alcohol use: Never Drug use: Never Sexual activity: Not Currently Partners: Male control/protection: Post-menopausal ALLERGIES: Allergies Allergen Reactions Codeine Rash Other Reaction(s): Not available MEDICATIONS: Current Outpatient Medications Medication Instructions acetaminophen (TYLENOL) 650 mg, Oral, Every 6 hours PRN alendronate (Fosamax) 70 MG tablet atorvastatin (LIPITOR) 20 mg, Oral, Daily famotidine (Pepcid) 20 MG tablet TAKE 1 TABLET BY MOUTH UP TO TWICE DAILY NEEDED FOR HEARTBURN ibuprofen 200 MG tablet Oral Omeprazole 20 MG tablet delayed-release potassium chloride CR (Klor-Con) 10 MEQ ER tablet PROzac 10 mg, Oral, Every 24 hours Vitamin D-Vitamin K (DosoKap) 5500-200 UNIT-MCG tablet 1 tablet, Oral, Daily REVIEW OF SYSTEMS: Review of Systems General: Denies appetite or significant weight change. Denies fever, chills or night sweats. Denies lightheadedness. ENT: Denies dry mouth, sore throat or swollen glands. Denies difficulty swallowing. Denies ear pain. Respiratory: Denies chest pain, SOB, cough or wheezing. Denies asthma or pneumonia symptoms. Cardiovascular: Denies CP or palpitations. No syncope or dyspnea on exertion. Gastrointestinal: Denies nausea or vomiting. Denies heartburn or abdominal pain. Denies diarrhea. Genitourinary: Denies frequent or painful urination. Musculoskeletal: See HPI for comments. Integumentary: Denies rash, lesion or skin infection. Neurologic: Denies dizziness, headache or seizure history. Vitals: Body mass index is 20.4 kg/m . PHYSICAL EXAM: Physical Exam Forward flexion has advanced to about 110 degrees isolated abduction to 80 degrees internal rotation is still limited to the left SI joint region external rotation from neutral is about 70 degrees. This has improved since previous visit. Difficult to assess strength associated with loss of motion. No radicular symptoms elbow wrist hand neurovascularly intact. No orders of the defined types were placed in this encounter. XR shoulder 2+ views left Imaging Result: Two views, AP and Lateral, in the office taken t Previously, saved to the permanent record shows post surgical change with acromioplasty/partial distal clavulectomy with appropriate coplaning. No acute fracture, dislocation, tumor or infection seen. ASSESSMENT: S/P arthroscopy of left shoulder Secondary adhesive capsulitis of shoulder, left PLAN: Continue physical therapy as recommended by your therapist. Would consider resorting to home exercise program if your insurance benefit does run out. Would expect another few months for full resolution of this frozen shoulder status post shoulder arthroscopy. Continue ice 20 minutes several times aday Tylenol for discomfort and avoid splinting. AYAN Sanchez documented in this encounterMissouri Southern [id number] Instructions* Patient Instructions* AYAN Sanchez - 09/12/2023 3:30 PM EST Continue physical therapy as recommended by your therapist. Would consider resorting to home exercise program if your insurance benefit does run out. Would expect another few months for full resolution of this frozen shoulder status post shoulder arthroscopy. Continue ice 20 minutes several times aday Tylenol for discomfort and avoid splinting. documented in this encounterMissouri Southern [id number] History of Present illness Narrative* Ishan Padilla MD - 08/02/2023 10:42 AM EST Radiation Oncology Follow Up Note PATIENT NAME: Eve Lindsey PATIENT DIAGNOSIS:Malignant neoplasm of central portion of right female breast C50.111 53 year old female with infiltrating ductal carcinoma of the Right breast, centrally located, pathologic stage pT2N0 (sn), ER-negative, NE-negative and Her2/pao not amplified, satge IIA, s/p excisional biopsy on 10/29/2020 with sentinel lymph node biopsy on 11/16/2020 (3.5 cm tumor, +grade 3 DCIS, -LVSI) and s/p 4C AC+ 12 cycles of taxol (12/29-05/26/2021). She compleeted radiation treatment to the Right breast, right supraclavicular, axillary and internal mammary nodes 4005 cGy in 15 fractions with a lumpectomy cavity boost of 1200 cGy in 6 fractiions that was completed on 07/25/2021. INTERVAL HISTORY: Eve Lindsey presents for follow up 6 months after we last saw her. The patient denies any other masses, skin changes or nipple discharge. She otherwise feels well with no othercomplaints. She specifically denies headache, vision changes, bone pain, chest pain, SOB, N/V, or focal neurologic deficits. She follows up with Dr. Solis in [place]. Most recent mammogram: 12/2022, port removed 11/2022 status: Post-menopausal. Air Duct Mechanic offered: Patient declines ROM: Limited ROM on the left shoulder due to recent rotator cuff surgery 05/18/2023. ALLERGIES Allergen Reactions Codeine Rash escitalopram oxalate (LEXAPRO) 10 mg tablet Take 10 mg by mouth once daily. acetaminophen (TYLENOL) 325 mg tablet Take 650 mg by mouth every 6 hours as needed. atorvastatin (LIPITOR) 20 mg tablet atorvastatin 20 mg tablet omeprazole (PRILOSEC) 20 mg capsule Take 40 mg by mouth once daily. potassium chloride (K-TAB) 10 mEq tablet 20 mEq once daily. PHYSICAL EXAM: VS: BP 118/81 Pulse 104 Temp 36.9 C (98.4 F) (Temporal) Wt 44.3 kg (97 lb 11.2 oz) LMP 12/22/2020 SpO2 100% KPS: 100 General Appearance: Alert and oriented. No acute distress. HEENT: NCAT. Sclera anicteric. PERRL. EOMI. Neck: Normal ROM. No palpable cervical or supraclavicular adenopathy. Chest: No respiratory distress. Lungs clear to auscultation bilaterally. Heart: Regular rate and rhythm. Abdomen: Soft. Nontender. Nondistended. Musculoskeletal: No edema. Normal ROM in extremities. No bone or spine tenderness. Neuro: Speech fluent. Gait normal. No focal deficits. Lymphatics: No palpable lymphadenopathy. Breast: Right breast lumpectomy scar. Right breast smaller than left. Otherwise bilateral breasts without nipple inversion, skin changes, or dominant masses in either breast ASSESSMENT/PLAN: Clinically doing well. Mammogram 12/2023. Continue follow up with Dr. Solis. She also follows up with her plant security guard with breast exams as well. We will see on a prn basis. Recommended to reach out to us with any questions. Signed by: Isahn Padilla MD cc: Rell Barbosa MD [address] [place] [id number] [address] Can Solis documented in this encounterCincinnati [facility]06-29-[facility] History of Present illness Narrative* Ishan Padilla MD - 02/08/2023 10:56 AM EDT Radiation Oncology Follow Up Note PATIENT NAME: Eve Lindsey PATIENT DIAGNOSIS: Malignant neoplasm of central portion of right female breast C50.111 52 year old female with infiltrating ductal carcinoma of the Right breast, centrally located, pathologic stage pT2N0 (sn), ER-negative, NE-negative and Her2/pao not amplified, satge IIA, s/p excisional biopsy on 10/29/2020 with sentinel lymph node biopsy on 11/16/2020 (3.5 cm tumor, +grade 3 DCIS, -LVSI) and s/p 4C AC+ 12 cycles of taxol (12/29-05/26/2021). She compleeted radiation treatment to the Right breast, right supraclavicular, axillary and internal mammary nodes 4005 cGy in 15 fractions with a lumpectomy cavity boost of 1200 cGy in 6 fractiions that was completed on 07/25/2021 INTERVAL HISTORY: Eve Lindsey presents for follow up 6 months after we last saw her. The patient denies any other masses, skin changes or nipple discharge. She otherwise feels well with no othercomplaints. She specifically denies headache, vision changes, bone pain, chest pain, SOB, N/V, or focal neurologic deficits. Most recent mammogram: 12/2022, BIRADS-2 status: Post-menopausal. Air Duct Mechanic offered: Patient declines ROM: Good She continues to follow up with Dr. Solis. Had port removed 11/2022. ALLERGIES Allergen Reactions Codeine Rash escitalopram oxalate (LEXAPRO) 10 mg tablet Take 10 mg by mouth once daily. acetaminophen (TYLENOL) 325 mg tablet Take 650 mg by mouth every 6 hours as needed. atorvastatin (LIPITOR) 20 mg tablet atorvastatin 20 mg tablet omeprazole (PRILOSEC) 20 mg capsule Take 40 mg by mouth once daily. potassium chloride (K-TAB) 10 mEq tablet 20 mEq once daily. PHYSICAL EXAM: VS: BP 113/63 Pulse 95 Temp 37.1 C (98.7 F) (Temporal) Wt 47.5 kg (104 lb 11.2 oz) LMP 12/22/2020 SpO2 97% KPS: 100 General Appearance: Alert and oriented. No acute distress. HEENT: NCAT. Sclera anicteric. PERRL. EOMI. Neck: Normal ROM. No palpable cervical or supraclavicular adenopathy. Chest: No respiratory distress. Lungs clear to auscultation bilaterally. Heart: Regular rate and rhythm. Abdomen: Soft. Nontender. Nondistended. Musculoskeletal: No edema. Normal ROM in extremities. No bone or spine tenderness. Neuro: Speech fluent. Gait normal. No focal deficits. Lymphatics: No palpable lymphadenopathy. Breast: Right breast surgical scar, left breast port scar, mild telangiectasia on the right breast,otherwise bilateral breasts are symmetric, without nipple inversion, or dominant masses in either breast ASSESSMENT/PLAN: Clinically doing well. We will see her again in 6 months for follow-up. Signed by: Ishan Padilla MD cc: DO William David [facility] [place] [address] Dr. Can Solis documented in this encounterCincinnati [facility]10-05-2022 History of Present illness Narrative* Ishan Padilla MD - 05/17/2022 1:23 PM EDT Radiation Oncology Follow Up Note PATIENT NAME: Eve Lindsey PATIENT DIAGNOSIS: Malignant neoplasm of central portion of right female breast C50.111 52 year old female with infiltrating ductal carcinoma of the Right breast, centrally located, pathologic stage pT2N0 (sn), ER-negative, NE-negative and Her2/pao not amplified, satge IIA, s/p excisional biopsy on 10/29/2020 with sentinel lymph node biopsy on 11/16/2020. She compleeted radiation treatment to [facility] Right breast, right supraclavicular, axillary and internal mammary nodes 4005 cGy in 15 fractions with a lumpectomy cavity boost of 1200 cGy in 6 fractiions that was completed on 07/25/2021. INTERVAL HISTORY: Eve Lindsey presents for follow up 6 months after we last saw her. The patient denies any other masses, skin changes or nipple discharge. She otherwise feels well with no othercomplaints. She specifically denies headache, vision changes, bone pain, chest pain, SOB, N/V, or focal neurologic deficits. Following up with Dr. Solis. Most recent mammogram: 11/15/2021: BIRADS-2. status: Post-menopausal. Air Duct Mechanic offered: Patient declines ROM: Good ALLERGIES Allergen Reactions Codeine Rash escitalopram oxalate (LEXAPRO) 10 mg tablet Take 10 mg by mouth once daily. acetaminophen (TYLENOL) 325 mg tablet Take 650 mg by mouth every 6 hours as needed. atorvastatin (LIPITOR) 20 mg tablet atorvastatin 20 mg tablet omeprazole (PRILOSEC) 20 mg capsule Take 40 mg by mouth once daily. potassium chloride (K-TAB) 10 mEq tablet 20 mEq once daily. PHYSICAL EXAM: VS: BP 98/66 Pulse 98 Temp 37.1 C (98.8 F) (Temporal) Wt 45.3 kg (99 lb 14.4 oz) LMP 12/22/2020 SpO2 96% KPS: 100 General Appearance: Alert and oriented. No acute distress. HEENT: NCAT. Sclera anicteric. PERRL. EOMI. Neck: Normal ROM. No palpable cervical or supraclavicular adenopathy. Chest: No respiratory distress. Lungs clear to auscultation bilaterally. Heart: Regular rate and rhythm. Abdomen: Soft. Nontender. Nondistended. Musculoskeletal: No edema. Normal ROM in extremities. No bone or spine tenderness. Neuro: Speech fluent. Gait normal. No focal deficits. Lymphatics: No palpable lymphadenopathy. Breast:Right breast surgical scar, mildly tender on deep palpation. Also surgical scar at the rightaxilla. Otherwise bilateral breasts are symmetric, without nipple inversion, skin changes, or dominant masses in either breast. ASSESSMENT/PLAN: Clinically doing well. We will see her again in 6-7 months for follow-up. -Mammogram 11/2021. Signed by: Ishan Padilla MD cc: Dr. Can Solis [facility] History of Present illness Narrative* Ishan Padilla MD - 11/02/2021 2:01 PM EDT Radiation Oncology Follow Up Note PATIENT NAME: Eve Lindsey PATIENT DIAGNOSIS: 51 year old female with Malignant neoplasm of central portion of right female breast C50.111 51 year old female with infiltrating ductal carcinoma of the Right breast, centrally located, pathologic stage pT2N0 (sn), ER-negative, NE-negative and Her2/pao not amplified, satge IIA, s/p excisional biopsy on 10/29/2020 with sentinel lymph node biopsy on 11/16/2020. She compleeted radiation treatment to [facility] Right breast, right supraclavicular, axillary and internal mammary nodes 4005 cGy in 15 fractions with a lumpectomy cavity boost of 1200 cGy in 6 fractiions that was completed on 07/25/2021. INTERVAL HISTORY: Eve Lindsey presents for follow up 3 months after we last saw her. The patient denies any other masses, skin changes or nipple discharge. She otherwise feels well with no othercomplaints. She specifically denies headache, vision changes, bone pain, chest pain, SOB, N/V, or focal neurologic deficits. She follows up closely with Dr. Solis. Most recent mammogram: 10/21/2020 status: Patient states there is no possibility she is at this time. Educated on risks of during treatment. Air Duct Mechanic offered: Patient declines ALLERGIES Allergen Reactions Codeine Rash oxyCODONE (ROXICODONE) 5 mg/5 mL oral solution Take 5mL by mouth 06/23 & 06/24 for radiation therapy. Do not take until you have arrived at the building. acetaminophen (TYLENOL) 325 mg tablet Take 650 mg by mouth every 6 hours as needed. atorvastatin (LIPITOR) 20 mg tablet atorvastatin 20 mg tablet buPROPion SR (ZYBAN SR; WELLBUTRIN SR) 150 mg 12 hr tablet Take 150 mg by mouth. norethindrone-e.estradiol-iron 1 mg-20 mcg(24) /75 mg (4) Take 1 tablet by mouth once daily. omeprazole (PRILOSEC) 20 mg capsule Take 40 mg by mouth once daily. potassium chloride (K-TAB) 10 mEq tablet 20 mEq once daily. PHYSICAL EXAM: VS: BP 105/72 Pulse 96 Temp 36.8 C (98.2 F) (Oral) Wt 43.7 kg (96 lb 5.5 oz) LMP 12/22/2020 SpO2 97% KPS: 100 General Appearance: Alert and oriented. No acute distress. HEENT: NCAT. Sclera anicteric. PERRL. EOMI. Neck: Normal ROM. No palpable cervical or supraclavicular adenopathy. Chest: No respiratory distress. Lungs clear to auscultation bilaterally. Heart: Regular rate and rhythm. Abdomen: Soft. Nontender. Nondistended. Musculoskeletal: No edema. Normal ROM in extremities. No bone or spine tenderness. Neuro: Speech fluent. Gait normal. No focal deficits. Lymphatics: No palpable lymphadenopathy. Breast: Right breast with well healed surgical scar, nontender. Otherwise bilateral breasts are symmetric, without nipple inversion, skin changes, or dominant masses in either breast ASSESSMENT/PLAN: Clinically doing well. She is scheduled for mammogram 11/2021 (Angeli). We will see her again in 6 months for follow-up. Signed by: Ishan Padilla MD cc: FRANKY Eng Dr. documented in this encounterC[facility]03[facility]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
--- NOTE | 2024-09-18 07:18 | XR_ITS ---
The [address] [address] Patient Name: EVE KIRAN MRN: [id number] date: 1970 Sex: F Assigned Patient Location: [facility] Current Patient Location: Accession/Order Number: [id number] Exam Date: 09/18/2024 07:13 Report Date: 09/19/2024 13:43 At the request of: ELIE CABRERA Procedure: XR abdomen 1V EXAMINATION: XR abdomen 1V HISTORY: kidney stones COMPARISON: No relevant comparison available. FINDINGS: KIDNEY/URETER - RIGHT: No visible renal or ureteral calcifications. KIDNEY/URETER - LEFT: No visible renal or ureteral calcifications. PELVIS: 5.5 mm calcification just below the right sacroiliac joint BOWEL: No abnormal dilation or deviation. BONES: No acute abnormality. OTHER: 3 cm calcified mass lateral to the right L4 transverse process, possibly a gallstone XR/XR abdomen 1V IMPRESSION: Possible 5.5 mm mid to distal right ureterolith Electronically authenticated by: ASHLEY BEATTY Date: 09/19/2024 13:43
[2024-09-18 07:40] LABS: HCG Qualitative NEGATIVE (NEGATIVE); Internal Control Within Normal Limits
[2024-09-18] MEDS: LACTATED RINGER'S SOLUTION 1,000 ML 50 ML IV ×2 (07:47→10:20)
[2024-09-18] MEDS: FAMOTIDINE/PF 20 MG/2 ML VIAL IV (07:59)
[2024-09-18] MEDS: CEFAZOLIN SODIUM 2 GM/50 ML D5W PREMIX IV (08:51)
--- NOTE | 2024-09-18 09:43 | P.URON_ITS ---
Urology Surgery Operative Note Operative Note Procedure Date: 09/18/24 Time Out Performed: yes Pre-op Diagnosis: Right ureteral calculus Post-op Diagnosis: same as pre-op Procedures performed: 1. Right ESWL. Anesthesia: General-LMA Primary Surgeon: Paul Herr Complications: None none Estimated blood loss (mL): 0 Findings: Very dense hard right ureteral calculus Specimens: None Drains: None Indications for Procedures: This lady has a 5 mm right ureteral calculus. She has been unable to pass it for nearly 2 months. The stone is currently located in the lower third of her ureter. She now presents for right ESWL. She has signed an informed consent after risks were explained. Some of these risks include bleeding, perinephric hematoma, infection and anesthesia to name a few. Detailed description of Procedure: The patient was brought to the Operating Room and placed on Siemens electrom agnetic lithotripsy treatment table in the supine position. SCDs were placed on their lower extremities and turned on and functioning during the entire case. Timeout was done by all parties in the room. We all agreed upon the patient's identification and the planned procedures for this patient. General Anesthesia was then administered via LMA. Treatment head was then brought to the patient's correct side. While using flourscopy the stone was identified and lined up into the crosshairs. We then began applying shocks at power level 2.0 and increased to a maximum power level of 4.0 because the stone was located in the lower third of the ureter. Intermittent fluoroscopy revealed that the stone was very slow to fragment. It was a dense stone. We saw minimal peripheral changes. It was not until 2000 shocks that we saw an actual fracture and the stone. There was no dispersion of pieces. We applied a total of 3500 shocks to this lower right ureteral stone and did not achieve total fragmentation. The procedure was then terminated. She was then [facility] and wheeled to PACU in stable condition. She will be discharged to home later today with a strainer. We will check a KUB x-ray in a few weeks and if she still has significant stone burden we will then put her through endoscopic laser lithotripsy in the near future.
== END 2024-09-18 10:50 | disposition home or self-care (01) ==
PROVIDERS: Anesthesiology; PCP Family Medicine; Visit Provider Urology
PROC: (CPT 873; principal; 2024-09-18 08:15)
DX: N20.1 Calculus of ureter (principal); K21.9 Gastro-esophageal reflux disease without esophagitis; E78.5 Hyperlipidemia, unspecified; C50.911 Malignant neoplasm of unspecified site of right female breast
CPT/HCPCS: 50590; 36415; 74018; 84703; J0690; J1100; J1885; J2250; J2371; J2405; J2704; J3010; J3490

== ENCOUNTER 2024-10-14 10:00 | Outpatient (OUT) | payer OTHER, SELFPAY ==
--- OUTSIDE RECORDS SUMMARY | 2024-10-14 10:03 | XMS_ITS | CCD ---
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 (Bld) [#/Vol] 0.5 E9/L Normal 0.2-1.0 [facility] Comment on above: Performed By: #### 2 [id number] #### [facility] [address] [place] [address] 83446 Neutrophils (Bld) [#/Vol] 10.9 E9/L High 2.0-7.5 [facility] Comment on above: Performed By: #### 2 [id number] #### [facility] [address] [place] [address] Neutrophils/100 WBC (Bld) 89.2 % High 36.0-75.0 [facility] Comment on above: Performed By: #### 2 492111 #### [facility] [address] [place] [address] 23662 Platelet mean volume (Bld) [Entitic vol] 8.3 fL Normal 6.4-10.8 [facility] Comment on above: Performed By: #### 2 295384 #### [facility] [address] [place] [address] 90899 Platelets (Bld) [#/Vol] 251.0 E9/L Normal 150.0-500.0 [facility] Comment on above: Performed By: #### 2 [id number] #### [facility] [address] [place] [address] 88327 RBC (Bld) [#/Vol] 4.5 E12/L Normal 4.3-5.9 [facility] Comment on above: Performed By: #### 2 [id number] #### [facility] [address] [place] [address] 84868 WBC corrected for nucl RBC Auto (Bld) [#/Vol] 12.3 E9/L High 4.0-11.0 [facility] Comment on above: Performed By: #### 2 [id number] #### [facility] [address] [place] [address] ED Clinical Summaryon 2024 ED Clinical Summary ED Clinical Summary [address] [address] ED Clinical Summary Person Information Name: EVE LINDSEY [place] Age: 54 Years : 1970 Sex: Female Language: Central African PCP: Rell Barbosa DO Marital Status: Visit [...] 09/08/2024 06:43:43 09/08/2024 06:43:43 09/08/2024 06:43:43 ADDRESS: [address] [place] [id number] PHYS DOC NOTES: MEDICAL INFORMATION: Prescriptions Given: New Medications [id number], [address] [place], [place] [id number], [phone] oxycodone (oxyCODONE 5 mg Tab) 1 Tablets By Mouth every 6 hours as needed for pain for 3 Days. Refills: 0. tamsulosin (Flomax 0.4 mg Cap) 1 Capsules By Mouth every day. Refills: 0. Medications to Continue Taking That Have Changed [id number], [address] [place], [place] [id number], [phone] START: ondansetron (Zofran ODT 4 mg Tab-Dis) [...] 1. PATIENT EDUCATION INFORMATION: Instructions: Kidney Stones, Mxsy-vl-Qeug Follow up: With: Address: When: Paul CABRERA [address] [place], [place] [phone] [place]ppler (1) In 3 days 09/11/2024 Comments: Take the Flomax once daily can use the pain medication, nausea medication as prescribed as needed for pain and nausea. Please reach out to Dr. Cabrera office to see if they can possibly move your procedure up. Please return to the ED if your symptoms worsen or if your pain becomes uncontrollable. With: Address: When: Rellgloria Barbosa [address] [place] [address] Stephanie, [facility], [place] [phone] [facility] (1) In 3 days DIAGNOSIS: Renal colic on right side Normal [facility] ED Note-Physicianon 09-08-19 ED Note-Physician ED Note-Physician Basic Information Time Seen: Wendi Cobyalexandru Castellanos 09/08/2024 04:00 Chief Complaint Pt. reports pain from know kidney stone. She stated she took tylenol for pain but has norco at home from previous ED visit Jul 21. Pt. states she is scheduled for surgery [...] took Tylenol however did not take the [place] that she has at home for the [...] and Complexity of Problems Differential Diagnosis: [] [facility] Data External documents reviewed: [] My [...] day(s), # 10 tab(s), Refills(s) 0, Pharmacy: [facility] #[id number], 149, cm, 09/08/24 4:08:00 EST, Height/Length Dosing, [...] q6hr, # 12 tab(s), Refills(s) 0, Pharmacy: [facility] #[id number], 149, cm, 09/08/24 4:08:00 EST, Height/Length Dosing, 42.6, kg, 09/08/24 4:08:00 EST, Weight Dosing tamsulosin, 0.4 mg = 1 cap(s), Oral, Daily, # 10 cap(s), Refills(s) 0, Pharmacy: [facility] #[id number], 149, cm, 09/08/24 4:08:00 EST, Height/Length Dosing, [...] Contact Infor (more content not included)... Normal [facility] Comment on above: Result Comment: Elec tronically Signed By: Caitlin Adame DO\.br\Date and Time Signed: 09/08/24 06:37 EST ED Patient Summaryon 025 ED Patient Summary ED Patient Summary [place] [id number] Patient Discharge Instructions Person Information Name: EVE LINDSEY Age: 54 Years Arrival Date: 09/08/2024 03:55:54 Discharge Diagnosis: Renal colic on right side Primary Care Physician: Rell Barbosa DO Provider Information Primary Provider: Caitlin Adame DO [employer] Member:None The exam and treatment you received in the Emergency Department were for an urgent problem and are not intended as complete care. It is important that you follow up with a doctor, nurse practitioner, or physician???s assistant director of admissions for ongoing care. If your symptoms become worse or you do not improve as expected and you are unable to reach your usual health care provider, you should return to the Emergency Department. We are available 24 hours a day. EVE LINDSEY has been given the following list of patient education materials, prescriptions and follow-up instructions: Follow-up Instructions: With: Address: When: Paul CABRERA [address] [place] [address], [place] [address] Business (1) In 3 days 09/11/2024 Comments: [...] becomes uncontrollable. With: Address: When: Rell Barbosa [address], [facility], [place] [address] [place] [address] Business (1) In 3 days In the event that this physician does not participate in your insurance network, please consult with your insurance company to find a nearby participating provider. Patient Education Materials: Kidney Stones, Ornw-js-Vpnm A MESSAGE TO ALL PATIENTS REGARDING OPIOIDS PRESCRIPTION OPIOIDS: WHAT YOU NEED TO KNOW Prescription opioids can be used to help relieve ecqtxwpg-cn-ianewd pain and are often prescribed following a [...] and fami (more content not included)... Normal [facility] Extra Blueon 09-08-2024 Tube Collected Plasma Yes Invalid Interpretation Code [facility] Comment on above: Performed By: #### 1 [id number] #### [facility] [address] [place] [id number] UA with Cult Rflxon 09-08-19 25 Bilirubin Ql (U) Negative Normal Negative [facility] Comment on above: Performed By: #### 4 [id number] #### [facility] [address] [place] [address] Clarity (U) Clear Normal Clear [facility] Comment on above: Performed By: #### 4 [id number] #### [facility] [address] [place] [address] Color (U) Light-Yellow Normal Yellow [facility] Comment on above: Result Comment: Micr oscopic readings are only performed on those samples that meet specific criteria set forth by [facility]. Performed By: #### 4 [id number] #### [facility] [address] [place] [address] Glucose Ql (U) Negative Normal Negative [facility] Comment on above: Performed By: #### 4 [id number] #### [facility] [address] [place] [address] Hemoglobin Auto test strip (U) [Mass/Vol] 2+ mg/dL Abnormal Negative [facility] Comment on above: Performed By: #### 4 [id number] #### [facility] [address] [place] [address] Ketones Auto test strip Ql (U) 1+ mg/dL Abnormal Negative [facility] Comment on above: Performed By: #### 4 [id number] #### [facility] [address] [place] [address] Leukocyte esterase Auto test strip Ql (U) Negative Normal Negative [facility] Comment on above: Performed By: #### 4 [id number] #### [facility] [address] [place] [address] Mucus Auto Ql (U) Trace Normal Negative [facility] Comment on above: Performed By: #### 4 [id number] #### [facility] [address] [place] [address] Nitrite Auto test strip Ql (U) Negative Normal Negative [facility] Comment on above: Performed By: #### 4 [id number] #### [facility] [address] [place] [address] pH (U) 5.5 [pH] Invalid Interpretation Code 5.0-9.0 [facility] Comment on above: Performed By: #### 4 [id number] #### [facility] [address] [place] [address] Protein Ql (U) Negative Normal Negative [facility] Comment on above: Performed By: #### 4 [id number] #### [facility] [address] [place] [address] RBC Ql (U) >75 Abnormal 0-3 [facility] Comment on above: Performed By: #### 4 [id number] #### [facility] [address] [place] [address] Specific gravity (U) [Rel density] 1.020 Invalid Interpretation Code 1.005-1.030 [facility] Comment on above: Performed By: #### 4 [id number] #### [facility] [address] [place] [address] Urobilinogen (U) [Mass/Vol] Negative Normal Negative [facility] Comment on above: Performed By: #### 4 [id number] #### [facility] [address] [place] [address] WBC Auto (Urine sed) [#/Area] 0-5 Normal 0-5 [facility] Comment on above: Performed By: #### 4 [id number] #### [facility] [address] [place] [address] Type of Urine collection method Clean Catch Normal [facility] Comment on above: Performed By: #### 4 [id number] #### [facility] [address] [place] [address] XR Abdomen 1 Viewon 09-08-19 25 XR Abdomen 1 View Exam Date/Time: 09/08/2024 [...] mGy = na DAP = na Normal [facility] eGFRon 09-08-2024 eGFR 88 mL/min/1.73 m2 Normal >=59 [facility] Comment on above: Performed By: #### 1 [id number] #### [facility] [address] [place] [address] Pulmonary Function Studieson 09-01-2024 Pulmonary Function Studies [...] fibrosis. Clinical correlation is recommended. READ BY: Karla Grant Dictated: 08/28/2024 [id number] Transcribed: 08/31/2024 cc:Rell Barbosa D.O. Normal [facility] Comment on above: Result Comment: Elec tronically Signed By: Dain Mcgregor MD\.br\Date and Time Signed: 09/01/24 09:13 EST ED Note-Physicianon 08-23-19 ED Note-Physician ED Note-Physician Basic Information Time Seen: Eve Chapman PA-C 08/21/2024 10:11 Chief Complaint pt has had [...] or rigidity noted. Neurological: A&O, normal equal machine bobbin winder strength, normal speech, normal coordination, normal motor, [...] Oxygen Ther (more content not included)... Normal [facility] Comment on above: Result Comment: Elec tronically Signed By: Eve Chapman PA-C\.br\Date and Time Signed: 08/21/24 19:28 EST\.br\Electronically Co-Signed By: Eve Chapman PA-C\.br\Date and Time Co-Signed: 08/21/24 19:29 EST\.br\Electronically Co-Signed By: Naye Tijerina M.D.\.br\Date and Time Co-Signed: 08/23/24 15:15 EST BMPon 08-21-2024 Anion gap [Moles/Vol] 13 mmol/L Normal 6-16 [facility] Comment on above: Performed By: #### 2 [id number] #### [facility] [address] [place] [address] Calcium [Mass/Vol] 9.2 mg/dL Normal 8.9-11.1 [facility] Comment on above: Performed By: #### 2 [id number] #### [facility] [address] [place] [address] Chloride [Moles/Vol] 106 mmol/L Normal 101-111 [facility] Comment on above: Performed By: #### 2 [id number] #### [facility] [address] [place] [address] CO2 [Moles/Vol] 25 mmol/L Normal 21-31 [facility] Comment on above: Performed By: #### 2 [id number] #### [facility] [address] [place] [address] Creatinine [Mass/Vol] 0.5 mg/dL Normal 0.5-1.3 [facility] Comment on above: Performed By: #### 2 [id number] #### [facility] [address] [place] [address] Glucose [Mass/Vol] 84 mg/dL Normal 55-199 [facility] Comment on above: Performed By: #### 2 [id number] #### [facility] [address] [place] [address] Potassium [Moles/Vol] 3.2 mmol/L Low 3.5-5.3 [facility] Comment on above: Performed By: #### 2 [id number] #### [facility] [address] [place] [address] Sodium [Moles/Vol] 141 mmol/L Normal 135-145 [facility] Comment on above: Performed By: #### 2 [id number] #### [facility] [address] [place] [address] Urea nitrogen [Mass/Vol] 10 mg/dL Normal 5-21 [facility] Comment on above: Performed By: #### 2 [id number] #### [facility] [address] [place] [address] Urea nitrogen/Creatinine [Mass ratio] 20 No Units Normal 10-20 [facility] Comment on above: Performed By: #### 2 [id number] #### [facility] [address] [place] [address] CBC w/ Auto Diffon 5 Basophils/100 WBC (Bld) 0.2 % Normal 0.0-2.0 [facility] Comment on above: Performed By: #### 2 [id number] #### [facility] [address] [place] [address] Basophils/Leukocyte s Auto (Bld) [Pure # fraction] 0.0 E9/L Normal 0.0-0.2 [facility] Comment on above: Performed By: #### 2 [id number] #### [facility] [address] [place] [address] Eosinophils (Bld) [#/Vol] 0.1 E9/L Normal 0.0-0.5 [facility] Comment on above: Performed By: #### 2 244210 #### [facility] [address] [place] [address] Eosinophils/100 WBC (Bld) 1.4 % Normal 0.0-8.0 [facility] Comment on above: Performed By: #### 2 086212 #### [facility] [address] [place] [address] Erythrocyte distribution width (RBC) [Ratio] 12.7 % Normal 10.9-14.2 [facility] Comment on above: Performed By: #### 2 [id number] #### [facility] [address] [place] [address] Hematocrit (Bld) [Volume fraction] 35.0 % Normal 34.0-46.0 [facility] Comment on above: Performed By: #### 2 [id number] #### [facility] [address] [place] [address] Hemoglobin (Bld) [Mass/Vol] 11.9 g/dL Low 12.0-16.0 [facility] Comment on above: Performed By: #### 2 [id number] #### [facility] [address] [place] [address] Lymphocytes (Bld) [#/Vol] 0.9 E9/L Low 1.0-4.0 [facility] Comment on above: Performed By: #### 2 [id number] #### [facility] [address] [place] [address] Lymphocytes/100 WBC (Bld) 14.0 % Normal 14.0-50.0 [facility] Comment on above: Performed By: #### 2 728203 #### [facility] [address] [place] [address] 23445 MCH (RBC) [Entitic mass] 28.6 pg Normal 27.0-34.0 [facility] Comment on above: Performed By: #### 2 904231 #### [facility] [address] [place] [address] MCHC (RBC) [Mass/Vol] 34.1 g/dL Normal 31.4-36.0 [facility] Comment on above: Performed By: #### 2 [id number] #### [facility] [address] [place] [address] MCV (RBC) [Entitic vol] 83.9 fL Normal 80.0-100.0 [facility] Comment on above: Performed By: #### 2 [id number] #### [facility] [address] [place] [address] Monocytes (Bld) [#/Vol] 0.5 E9/L Normal 0.2-1.0 [facility] Comment on above: Performed By: #### 2 [id number] #### [facility] [address] [place] [address] Neutrophils (Bld) [#/Vol] 4.7 E9/L Normal 2.0-7.5 [facility] Comment on above: Performed By: #### 2 061915 #### [facility] [address] [place] [address] Neutrophils/100 WBC (Bld) 76.5 % High 36.0-75.0 [facility] Comment on above: Performed By: #### 2 537112 #### [facility] [address] [place] [address] Platelet 236.0 E9/L Normal 150.0-500.0 [facility] Comment on above: Performed By: #### 2 279017 #### [facility] [address] [place] [address] Platelet mean volume (Bld) [Entitic vol] 7.8 fL Normal 6.4-10.8 [facility] Comment on above: Performed By: #### 2 697053 #### [facility] [address] [place] [address] RBC (Bld) [#/Vol] 4.2 E12/L Low 4.3-5.9 [facility] Comment on above: Performed By: #### 2 937320 #### [facility] [address] [place] [address] WBC corrected for nucl RBC Auto (Bld) [#/Vol] 6.2 E9/L Normal 4.0-11.0 [facility] Comment on above: Performed By: #### 2 341127 #### [facility] [address] [place] [address] ED Clinical Summaryon 2024 ED Clinical Summary ED Clinical Summary [address] [address] ED Clinical Summary Person Information Name: EVE LINDSEY [facility]/[facility] Age: 54 Years : 1970 Sex: Female Language: Central African PCP: Rell Barbosa DO Marital Status: Visit [...] 08/21/2024 13:15:12 08/21/2024 13:15:12 08/21/2024 13:15:12 ADDRESS: [place] [facility] [id number] PHYS DOC NOTES: MEDICAL INFORMATION: Prescriptions Given: [...] 1. PATIENT EDUCATION INFORMATION: Instructions: Joint Pain, Izgd-gv-Zooh Follow up: With: Address: When: Rell Barbosa [address] [place] [address], [place] [phone] Business () In 3 days 08/24/2024 Comments: Call to schedule a follow-up appointment with your primary care provider. Use Tylenol and ibuprofen as needed for pain management. Return to the ED with any new or worsening symptoms. DIAGNOSIS: Accidental fall; Acute pain of right hip; Sprain of fourth toe of right foot; Sprain of second toe of right foot; Sprain of third toe, right Normal [facility] ED Patient Summaryon 025 ED Patient Summary ED Patient Summary [address] [address] Patient Discharge Instructions Person Information Name: EVE LINDSEY Age: 54 Years Arrival Date: 08/21/2024 10:03:03 Discharge Diagnosis: Accidental fall; Acute pain of right hip; Sprain of fourth toe of right foot; Sprain of second toe of right foot; Sprain of third toe, right Primary Care Physician: Rell Barbosa DO Provider Information Primary Provider: Naye Tijerina M.D. [employer] Member:Eve Chapman PA-C The exam and treatment you received in the Emergency Department were for an urgent problem and are not intended as complete care. It is important that you follow up with a doctor, nurse practitioner, or physician???s assistant director of admissions for ongoing care. If your symptoms become worse or you do not improve as expected and you are unable to reach your usual health care provider, you should return to the Emergency Department. We are available 24 hours a day. EVE LINDSEY has been given the following list of patient education materials, prescriptions and follow-up instructions: Follow-up Instructions: With: Address: When: Rell Barbosa [address], [facility], [facility] [address] [place] [address] [facility] () In 3 days 08/24/2024 Comments: Call to [...] participating provider. Patient Education Materials: Joint Pain, Gqto-yj-Pvom A MESSAGE TO ALL PATIENTS REGARDING OPIOIDS PRESCRIPTION OPIOIDS: WHAT YOU NEED TO KNOW Prescription opioids can be used to help relieve sissucyd-lp-afywlh pain and are often prescribed following a [...] your community drug take-back program or your (more content not included)... Normal [facility] Magnesiumon 08-21-2024 Magnesium [Mass/Vol] 1.8 mg/dL Normal 1.3-2.4 [facility] Comment on above: Performed By: #### 2 [id number] #### [facility] [address] [place] [address] PT & PTTon 08-21-2024 aPTT Coag (PPP) [Time] 30.5 second(s) Normal 25.1-36.5 [facility] Comment on above: Result Comment: Para meter [...] the same coagulation reagent and instrumentation as [facility]. Currently there are no coagulation studies available worldwide for children to 14 days, and no normal ranges. Heparin therapeutic range (represented by Anti-Factor Xa activity of 0.2 - 0.4 U/mL) corresponds to PTT of 56.6 - 109.0 sec. Performed By: #### 1 [id number] #### [facility] [address] [place] [address] INR Coag (PPP) [Relative time] 0.91 {INR} Invalid Interpretation Code [facility] Comment on above: Result Comment: INR results are specifically intended to assess patients stabilized on long-term Anticoagulation therapy suggested INR???s ???Less Intensive Anticoagulation??? 2.0 ??? 3.0 Conventional Range 3.0 ??? 4.5 Performed By: #### 1 [id number] #### [facility] [address] [place] [address] PT Coag (PPP) [Time] 10.2 second(s) Normal 9.4-12.5 [facility] Comment on above: Result Comment: 15 d [...] the same coagulation reagent and instrumentation as [facility]. Currently there are no coagulation studies available worldwide for children to 14 days, and no normal ranges. Performed By: #### 1 [id number] #### [facility] [address] [place] [address] Troponin 0 Hr.on 08-21-2024 Troponin HS 4.80 pg/mL Low 10.10-27.10 [facility] Comment on above: Result Comment: The 95% CI (Confidence Interval) PPV (Positive Predictive Value) for myocardial infarction in females is 38 pg/mL, in males 51 pg/mL. The results should be used in conjunction with clinical conditions of myocardial infarction. (Access High Sensitivity Troponin I Instructions For Use, Julia Racquel, March 2018) Performed By: #### 1 [id number] #### [facility] [address] [place] [address] XR Chest Single Viewon 08-21 XR Chest [...] mGy = . DAP = . Normal [facility] XR Foot 3+ Views Righton XR Foot [...] mGy = . DAP = . Normal [facility] XR Hip 2-3 Views Right + Pel [...] mGy = . DAP = . Normal [facility] eGFRon 08-21-2024 eGFR 112 mL/min/1.73 m2 Normal >=59 [facility] Comment on above: Performed By: #### 1 [id number] #### [facility] [address] [place] [address] XR Abdomen 1 Viewon 08-13-19 25 XR [...] mGy = NA DAP = NA Normal [facility] Ambulatory Visit Summaryon 1 Ambulatory Visit Summary Ambulatory Visit Summary EVE LINDSEY :1970 Visit Date:08/12/2024 Ambulatory Visit Instructions Your Diagnosis Ureteral stone with hydronephrosis Your Care Team Attending Physician - OLVIIA BANDA PA-C Primary Care Physician - Rell [...] access port (11/21/2022), Infusion/injection port, implantable (12/10/2020), [place] node biopsy (11/16/2020), Biopsy of breast (10/29/2020), [...] Appointments Follow Up with [facility] When: Comments: For procedure as scheduled. [...] of fr (more content not included)... Normal [facility] Provider Letteron 08-12-2024 Provider Letter Provider Letter August 12, 2024 EVE LINDSEY [address] [place] [id number] : 1970 To Whom It May Concern, Please excuse above patient from work. Date of Illness: From: 08/12/24 To: 12/31/24 May Return to Work On: 08/14/24 Restrictions: none Comments: Patient had an appointment on 08/12/24 with Olivia Banda PA-C Sincerely, Olivia Banda PA-C [facility] Office/Clinic Noteon 08-12-2024 Urology [...] calculous obstruction) CT AP wo con 07/21/24 [facility] [place] 5 mm stone R UPJ and moderate R hydro. No L renal stone. KUB 07/26/24 [facility] - No significant change of ureteral stone. [...] E&M of Est. Patient Moderate 30-39 Min 12249 Urnls Dip Stick Auto w/o Microscopy POC [id number] Follow-up With When Contact Information [facility] Additional Instructions: For procedure as scheduled. [...] access port (11/21/2022), Infusion/injection port, implantable (12/10/2020), Raton node biopsy (11/16/2020), Biopsy of breast (10/29/2020), [...] Dipstick: Negative (more content not included)... Normal [facility] Comment on above: Result Comment: Elec tronically Signed By: OLIVIA BANDA PA-C\.tiffany\Date and Time Signed: 08/12/24 11:38 EST Cheryl 07-31-2024 CNOV Office Visit (RADTMS ) EVE LINDSEY ([id number]) 1970 F Date Time Provider Department 07/31/24 [...] centrally located, pathologic stage pT2N0 (sn), ER-negative, GA-negative and Her2/pao not amplified, satge IIA, s/p [...] deficits. Most recent mammogram: 01/11/2024 status: Post-menopausal. Boat Rigger offered: Patient declines ROM: Good Recently had [...] discussed with the Patient or Patient's Authorized Penology Professor. As applicable, any other physician, advance practice provider, medical student, or other health professional student that will be observing or involved in the sensitive examination for educational or training purposes was discussed with the Patient or Authorized Penology Professor. The Patient or Authorized Penology Professor has agreed to proceed with the sensitive examination. ASSESSMENT/PLAN: Clinically doing well. We will see her again in 5-6 months for follow-up. Mammogram 12/2024. Continue follow up with Dr. Solis and PCP. -Recommended staying hydrated. Signed by: Ishan Padilla MD cc: Rell Barbosa MD [address] [place] [address] Ishan Resendez MD 07/31/2024 1:33 PM Signed Mammogram 12/2024. Follow up in ~6 months Referring Provider: RELL BARBOSA [[id number]] Allergies As of Date: 07/31/2024 Noted Allergy Reaction CODEINE 08/18/2018 2 - Rash Date Reviewed: 07/31/2024 Reviewed by: Diana Birmingham LPN - Fully Assessed Reason for Visit: Recheck [92] Cmt: Right Breast Primary Visit Diagnosis:Malignant neoplasm of central portion of right breast in female, estrogen receptor negative (HCC) [C50.111, Z17.1] Other Visit Diagnosis:Screening mammogram for breast cancer [Z12.31] Order(s):[facility] SCRE[facility]ING [facility] [[id number]] Order #: [id number] FUTURE Prescriptions as of 07/31/2024 - tamsulosin [...] mg tablet (more content not included)... Normal [facility] Ambulatory Visit Summaryon 1 09-28-2023 Ambulatory Visit Summary Ambulatory Visit Summary EVE LINDSEY :1970 Visit Date:07/28/2024 Ambulatory Visit Instructions Your Diagnosis Ureteral stone with hydronephrosis Your Care Team Attending Physician - DEBORAH HENRY, Paul Denney Primary Care Physician - Rell Barbosa DO [...] access port (11/21/2022), Infusion/injection port, implantable (12/10/2020), Raton node biopsy (11/16/2020), Biopsy of breast (10/29/2020), [...] OLIVIA BANDA PA-C Where: [facility] [address] [place] [address]- Sunday 3:00 PM EDT With: Can Solis DO Where: [facility] You Need to Schedule the Following Appointments Follow Up with DEBORAH HENRY, OTF [place] When: Where: [facility] [address], [facility] [place] [address]- You Need to Complete the Following XR Abdomen 1 View, 07/28/24, Routine, Order for future visit, Transport Mode: Ambulatory, Reason: Other (please specify), Reason: ureteral stone, No, Ureteral stone with hydronephrosis, [facility], [facility] Medications What How Much When Why Instructions Changed tamsulosin (Flomax 0.4 mg Cap) 1 Capsules By Mouth Every day Duration: 14 Days Pickup at [id number] Unchanged armodafinil (armodafinil 250 mg oral tablet) [...] physician if questions or concerns Pharmacy Information [facility] #[id number]: [address] [place], [place] [id number] [phone] Allergies Pravachol (muscle aches) codeine (rash) Problems [...] in the urin (more content not included)... [facility] Provider Letteron 07-28-2024 Provider Letter Provider Letter July 28, 2024 EVE LINDSEY [address] [place] [id number] : 1970 To Whom It May Concern, Please excuse above patient from work. Date of Illness: From: 07/21/24 To: 07/28/24 May Return to Work On: 07/29/24 Restrictions: none Comments: Patient was in [facility] ER on 07/21/24, and had an appointment with Dr. Cabrera on 07/28/24. Sincerely, [facility] Urology Office/Clinic Noteon 07-28-2024 Urology Office/Clinic Note Urology Office/Clinic Note Chief Complaint ureteral stone HPI Staff 54yr old new female pt here for f/u to [facility] w/ KUB. Pt seen 07/21/24 for [...] information and history for this patient from [facility]. I have reviewed and verified the staff [...] yo male new pt following up to [facility] visit on 07/21/24 due to R lower back, flank pain, and gross hematuria. Given IV Rocephin. Discharged with Flomax 0.4mg qd and Keflex 500mg q6hrs. Ucx was neg. 1. Ureteral stone with hydronephrosis (N13.2: Hydronephrosis with renal and ureteral calculous obstruction) CT AP wo con 07/21/24 [facility] - 5 mm stone R UPJ and moderate R hydro. No L renal stone. KUB 07/26/24 [facility] - No significant change of ureteral stone. [...] in 2 wks. Was given Naproxen and [place], hasn't taken either. Follow up 2 wks with KUB at [facility], rediscuss surgical intervention or sooner if needed. [...] [facility] [address], [place] [address]- Additional Instructions: 2 wks with KUB at [facility], rediscuss surgical intervention Patient Education ESWL for Kidney Stones I, Randi Mckeon, personally scribed for Dr. Cabrera on 07/28/2024 12:53:09. . Documentation recorded by the scribe, Randi Mckeon, accurately reflects the services(s) I [...] access port (11/21/2022), Infusion/injection port, implantable (12/10/2020), Raton node biopsy (11/16/2020), Biopsy of breast (10/29/2020), [...] 0.4 mg (more content not included)... Normal [facility] Comment on above: Result Comment: Elec tronically Signed By: Paul CABRERA MD R\.br\Date and Time Signed: 07/28/24 12:55 EST\.br\Electronically Co-Signed [...] DAQUAN Technologist: EZEQUIEL Technical Comments Radiation Dose: Kar in mGy = . DAP = . Normal [facility] C Urineon 07-23-2024 Bacteria identified Cx Nom [...] Locations R1: This test was performed at: [facility], [address] [place] [address], [address]- , , Normal [facility] Comment on above: Performed By: #### 2 [id number] #### [facility] [address] [place] [address] BMPon 07-21-2024 Anion gap [Moles/Vol] 14 mmol/L Normal 6-16 [facility] Comment on above: Performed By: #### 2 [id number] #### [facility] [address] [place] [address] Calcium [Mass/Vol] 9.6 mg/dL Normal 8.9-11.1 [facility] Comment on above: Performed By: #### 2 297453 #### [facility] [address] [place] [address] Chloride [Moles/Vol] 100 mmol/L Low 101-111 [facility] Comment on above: Performed By: #### 2 [id number] #### [facility] [address] [place] [address] CO2 [Moles/Vol] 27 mmol/L Normal 21-31 [facility] Comment on above: Performed By: #### 2 [id number] #### [facility] [address] [place] [address] Creatinine [Mass/Vol] 0.6 mg/dL Normal 0.5-1.3 [facility] Comment on above: Performed By: #### 2 250329 #### [facility] [address] [place] [address] Glucose [Mass/Vol] 137 mg/dL Normal 55-199 [facility] Comment on above: Performed By: #### 2 303274 #### [facility] [address] [place] [address] Potassium [Moles/Vol] 3.5 mmol/L Normal 3.5-5.3 [facility] Comment on above: Performed By: #### 2 092033 #### [facility] [address] [place] [address] Sodium [Moles/Vol] 137 mmol/L Normal 135-145 [facility] Comment on above: Performed By: #### 2 987794 #### [facility] [address] [place] [address] Urea nitrogen [Mass/Vol] 11 mg/dL Normal 5-21 [facility] Comment on above: Performed By: #### 2 943738 #### [facility] [address] [place] [address] Urea nitrogen/Creatinine [Mass ratio] 18 No Units Normal 10-20 [facility] Comment on above: Performed By: #### 2 587342 #### [facility] [address] [place] [address] CBC w/ Auto Diffon 4 Basophils/100 WBC (Bld) 0.3 % Normal 0.0-2.0 [facility] Comment on above: Performed By: #### 2 188259 #### [facility] [address] [place] [address] Basophils/Leukocyte s Auto (Bld) [Pure # fraction] 0.0 E9/L Normal 0.0-0.2 [facility] Comment on above: Performed By: #### 2 275848 #### [facility] [address] [place] [address] Eosinophils (Bld) [#/Vol] 0.0 E9/L Normal 0.0-0.5 [facility] Comment on above: Performed By: #### 2 272065 #### [facility] [address] [place] [address] Eosinophils/100 WBC (Bld) 0.0 % Normal 0.0-8.0 [facility] Comment on above: Performed By: #### 2 563097 #### [facility] [address] [place] [address] Erythrocyte distribution width (RBC) [Ratio] 12.5 % Normal 10.9-14.2 [facility] Comment on above: Performed By: #### 2 902106 #### [facility] [address] [place] [address] Hematocrit (Bld) [Volume fraction] 38.1 % Normal 34.0-46.0 [facility] Comment on above: Performed By: #### 2 745487 #### [facility] [address] [place] [address] Hemoglobin (Bld) [Mass/Vol] 12.7 g/dL Normal 12.0-16.0 [facility] Comment on above: Performed By: #### 2 579630 #### [facility] [address] [place] [address] Lymphocytes (Bld) [#/Vol] 0.5 E9/L Low 1.0-4.0 [facility] Comment on above: Performed By: #### 2 432352 #### [facility] [address] [place] [address] Lymphocytes/100 WBC (Bld) 3.5 % Low 14.0-50.0 [facility] Comment on above: Performed By: #### 2 213079 #### [facility] [address] [place] [address] MCH (RBC) [Entitic mass] 28.4 pg Normal 27.0-34.0 [facility] Comment on above: Performed By: #### 2 692219 #### [facility] [address] [place] [address] MCHC (RBC) [Mass/Vol] 33.3 g/dL Normal 31.4-36.0 [facility] Comment on above: Performed By: #### 2 730993 #### [facility] [address] [place] [address] MCV (RBC) [Entitic vol] 85.2 fL Normal 80.0-100.0 [facility] Comment on above: Performed By: #### 2 624684 #### [facility] [address] [place] [address] Monocytes (Bld) [#/Vol] 0.4 E9/L Normal 0.2-1.0 [facility] Comment on above: Performed By: #### 2 802122 #### [facility] [address] [place] [address] Neutrophils (Bld) [#/Vol] 14.3 E9/L High 2.0-7.5 [facility] Comment on above: Performed By: #### 2 983434 #### [facility] [address] [place] [address] Neutrophils/100 WBC (Bld) 93.8 % High 36.0-75.0 [facility] Comment on above: Performed By: #### 2 453084 #### [facility] [address] [place] [address] Platelet mean volume (Bld) [Entitic vol] 8.4 fL Normal 6.4-10.8 [facility] Comment on above: Performed By: #### 2 935684 #### [facility] [address] [place] [address] Platelets (Bld) [#/Vol] 253.0 E9/L Normal 150.0-500.0 [facility] Comment on above: Performed By: #### 2 277872 #### [facility] [address] [place] [address] RBC (Bld) [#/Vol] 4.5 E12/L Normal 4.3-5.9 [facility] Comment on above: Performed By: #### 2 734272 #### [facility] [address] [place] [address] WBC corrected for nucl RBC Auto (Bld) [#/Vol] 15.3 E9/L High 4.0-11.0 [facility] Comment on above: Performed By: #### 2 585267 #### [facility] [address] [place] [address] CT Abdomen/Pelvis w/o Contra ston 07-21-2024 CT [...] Oral contrast amount in ml's: 0 Normal [facility] ED Clinical Summaryon 2023 ED Clinical Summary ED Clinical Summary [place] [id number] ED Clinical Summary Person Information Name: EVE LINDSEY [facility] Age: 54 Years : 1970 Sex: Female Language: Central African PCP: Rell Barbosa DO Marital Status: Phone: [...] 07/21/2024 05:43:02 07/21/2024 05:43:02 07/21/2024 05:43:02 ADDRESS: [address] [place] [id number] PHYS DOC NOTES: MEDICAL INFORMATION: Prescriptions Given: [id number], [address], [place] [id number], [phone] cephalexin (Keflex 500 mg Cap) 1 Capsules [...] Stones Follow up: With: Address: When: [facility], [address], [address] [address] Business (1) [facility], [address], [place] [address] Business (1) Comments: Call for diagnosis based follow up With: Address: When: Rell Thomas Janel Christopher, [place] [address] [place] [address] Business (1) In 3 days DIAGNOSIS: Acute UTI; Hydronephrosis; Ureterolithiasis Normal [facility] ED Note-Physicianon 07-21-20 ED Note-Physician ED Note-Physician Basic Information Time Seen: Elizabeth Ha 07/21/2024 00:52 Chief Complaint right lower back [...] and Complexity of Problems Differential Diagnosis: [] [facility] Data External documents reviewed: N/A My [...] day(s), # 28 cap(s), Refills(s) 0, [id number], 150, cm, 07/21/24 0:57:00 EST, Height/Length Dosing, 43.6, kg, 07/21/24 0:57:00 EST, Weight Dosing ketorolac, 15 mg = 1 mL, Injection, IV Push, Once, Stop date 07/21/24 1:06:00 EST, STAT, Start date 07/21/24 1:06:00 EST, 07/21/24 1:06:00 EST naproxen, 500 mg = 1 tab(s), Oral, BID, PRN Pain, X 7 day(s), # 14 tab(s), Refills(s) 0, Pharmacy: [facility] #[id number], 150, cm, 07/21/24 0:57:00 EST, Height/Length Dosing, [...] Daily, # 10 cap(s), Refills(s) 0, Pharmacy: [facility] #[id number], 150, cm, 07/21/24 0:57:00 EST, Height/Length Dosing, [...] q6hr na (more content not included)... Normal [facility] Comment on above: Result Comment: Elec tronically Signed By: Ha Johnson DO\.br\Date and Time Signed: 07/21/24 04:45 EST ED Patient Summaryon 024 ED Patient Summary ED Patient Summary [address] [address] Patient Discharge Instructions Person Information Name: EVE LINDSEY Age: 54 Years Arrival Date: 07/21/2024 00:50:42 Discharge Diagnosis: Acute UTI; Hydronephrosis; Ureterolithiasis Primary Care Physician: Rell Barbosa DO Provider Information Primary Provider: Ha Johnson DO [employer] Construction [employer] Member:None The exam and treatment you received in the Emergency Department were for an urgent problem and are not intended as complete care. It is important that you follow up with a doctor, nurse practitioner, or physician???s assistant director of admissions for ongoing care. If your symptoms become [...] Instructions: With: Address: When: Paul CABRERA [address], [address], [facility] [address] [place] [address] Business (1) [facility], [address] [place] [address] Business (1) Comments: Call for diagnosis based follow up With: Address: When: Rell Barbosa [address], jamar Hernandez [facility] [address] [place] [address] Business (1) In 3 days In the event that this physician does not participate in your insurance network, please consult with your insurance company to find a nearby participating provider. Patient Education Materials: Urinary Tract Infection, Adult; Kidney Stones A MESSAGE TO ALL PATIENTS REGARDING OPIOIDS PRESCRIPTION OPIOIDS: WHAT YOU NEED TO KNOW Prescription opioids can be used to help relieve ouuipxln-lz-yqjuoq pain and are often prescribed following a [...] or f (more content not included)... Normal [facility] Hep Func Panelon 07-21-2024 Albumin [Mass/Vol] 4.5 g/dL Normal 3.3-5.0 [facility] Comment on above: Performed By: #### 2 [id number] #### [facility] [address] [place] [address] Albumin/Globulin (S) [Mass conc ratio] 1.7 Normal 1.1-2.2 [facility] Comment on above: Performed By: #### 2 487406 #### [facility] [address] [place] [address] ALP [Catalytic activity/Vol] 110 Int._Unit/L High 21-98 [facility] Comment on above: Performed By: #### 2 [id number] #### [facility] [address] [place] [address] ALT No additional P-5'-P [Catalytic activity/Vol] 18 Int._Unit/L Normal 6-46 [facility] Comment on above: Performed By: #### 2 193849 #### [facility] [address] [place] [address] AST [Catalytic activity/Vol] 20 Int._Unit/L Normal 5-43 [facility] Comment on above: Performed By: #### 2 550112 #### [facility] [address] [place] [address] Bilirubin [Mass/Vol] 0.5 mg/dL Normal 0.0-1.1 [facility] Comment on above: Performed By: #### 2 409857 #### [facility] [address] [place] [address] Bilirubin.direct [Mass/Vol] 0.0 mg/dL Normal 0.0-0.4 [facility] Comment on above: Performed By: #### 2 934150 #### [facility] [address] [place] [address] Bilirubin.indirect [Mass or moles/Vol] 0.5 mg/dL Normal 0.1-0.9 [facility] Comment on above: Performed By: #### 2 595512 #### [facility] [address] [place] [address] Globulin (S) [Mass/Vol] 2.7 g/dL Normal 1.4-4.0 [facility] Comment on above: Performed By: #### 2 293302 #### [facility] [address] [place] [address] Protein [Mass/Vol] 7.2 g/dL Normal 6.0-7.8 [facility] Comment on above: Performed By: #### 2 391129 #### [facility] [address] [place] [address] Lipase Levelon 07-21-2024 Lipase [Catalytic activity/Vol] 10 U/L Low 13-58 [facility] Comment on above: Performed By: #### 2 548860 #### [facility] [address] [place] [address] UA with Cult Rflxon 07-21-20 24 Bilirubin Ql (U) Negative Normal Negative [facility] Comment on above: Performed By: #### 4 [id number] #### [facility] [address] [place] [address] Clarity (U) Ex.Turbid Abnormal Clear [facility] Comment on above: Performed By: #### 4 [id number] #### [facility] [address] [place] [address] Color (U) Light-[place] Abnormal Yellow [facility] Comment on above: Result Comment: Micr oscopic readings are only performed on those samples that meet specific criteria set forth by [facility]. Performed By: #### 4 [id number] #### [facility] [address] [place] [address] Epithelial cells.squamous Auto (Urine sed) [#/Area] 0-2 Invalid Interpretation Code [facility] Comment on above: Performed By: #### 4 [id number] #### [facility] [address] [place] [address] Glucose Ql (U) Negative Normal Negative [facility] Comment on above: Performed By: #### 4 [id number] #### [facility] [address] [place] [address] Hemoglobin Auto test strip (U) [Mass/Vol] 3+ mg/dL Abnormal Negative [facility] Comment on above: Performed By: #### 4 [id number] #### [facility] [address] [place] [address] Ketones Auto test strip Ql (U) 2+ mg/dL Abnormal Negative [facility] Comment on above: Performed By: #### 4 [id number] #### [facility] [address] [place] [address] Leukocyte clumps Auto (Urine sed) [#/Area] 4-10 Abnormal [facility] Comment on above: Performed By: #### 4 [id number] #### [facility] [address] [place] [address] Leukocyte esterase Auto test strip Ql (U) 75 Ravin/uL Abnormal Negative [facility] Comment on above: Performed By: #### 4 [id number] #### [facility] [address] [place] [address] Mucus Auto Ql (U) 3+ [id number] Abnormal Negative [facility] Comment on above: Performed By: #### 4 [id number] #### [facility] [address] [place] [address] Nitrite Auto test strip Ql (U) Negative Normal Negative [facility] Comment on above: Performed By: #### 4 [id number] #### [facility] [address] [place] [address] pH (U) 5.5 [pH] Invalid Interpretation Code 5.0-9.0 [facility] Comment on above: Performed By: #### 4 [id number] #### [facility] [address] [place] [address] Protein Ql (U) 1+ mg/dL Abnormal Negative [facility] Comment on above: Performed By: #### 4 [id number] #### [facility] [address] [place] [address] RBC Ql (U) >75 Abnormal 0-3 [facility] Comment on above: Performed By: #### 4 [id number] #### [facility] [address] [place] [address] Specific gravity (U) [Rel density] 1.021 Invalid Interpretation Code 1.005-1.030 [facility] Comment on above: Performed By: #### 4 [id number] #### [facility] [address] [place] [address] Urobilinogen (U) [Mass/Vol] Negative Normal Negative [facility] Comment on above: Performed By: #### 4 [id number] #### [facility] [address] [place] [address] WBC Auto (Urine sed) [#/Area] >75 Abnormal 0-5 [facility] Comment on above: Performed By: #### 4 [id number] #### [facility] [address] [place] [address] Type of Urine collection method Clean Catch Normal [facility] Comment on above: Performed By: #### 4 [id number] #### [facility] [address] [place] [address] eGFRon 07-21-2024 eGFR 107 mL/min/1.73 m2 Normal >=59 [facility] Comment on above: Performed By: #### 1 [id number] #### [facility] [address] [place], [place] [address] [place] [address] XR Shoulder - left 2 [facility] 06-27-2024 Imaging Result: X-rays, permanently saved to the patient's record, are reviewed shows diffuse osteoporosis with mild to moderate degenerative changes. Questionable calcification of the subacromial space versus anchor pull out with resorption. [facility] XR Shoulder - left 2 [facility] 06-24-2024 Radiology Study observation (narrative) [facility] XR Spine Lumbosacral Minimum 4 [facility] 06-03-2024 [...] mGy = na DAP = na Normal [facility] No Panel Informationon 04-01 Pure [employer] Audiometry Audio indicated borderline normal hearing sloping to a mild to moderate sensorineural hearing loss, bilaterally. Today's audio is consistent with previous results recorded 04-11-2022. [facility] PAP [id number] 02-26-2024 Cytology report Cyto stain Doc (Cvx/Vag) Note Invalid Interpretation Code [facility] Comment on above: Result Comment: TEST S RESULT FLAG UNITS REF RANGE LAB Clinician Provided Cytology Information Source.............[employer] Other..............Post Menopausal No. of containers..01 ThinPrep Vial DIAGNOSIS: 01 NEGATIVE FOR INTRAEPITHELIAL LESION OR MALIGNANCY. CELLULAR CHANGES ASSOCIATED WITH ATROPHY ARE PRESENT. Specimen adequacy: 01 Satisfactory for evaluation. Endocervical and/or squamous metaplastic cells (endocervical component) are present. Performed by: 01 Laya Sanchez, [employer] ([facility]) . 01 Note: Note 01 [...] High <-Panic Low,>-Panic High,A-Abnormal,AA-Critical Abnormal Performed at: [facility] [address] [id number] Kiarra Greene MD, Performed By: #### 3 [id number] #### [facility] [address] [place] [id number] HPV 16+18+31+33+35+39+4 5+51+52+56+58+59+66 +68 DNA Probe+sig amp Ql (Cvx) Negative Invalid Interpretation Code Negative [facility] Comment on above: Result Comment: This nucleic acid amplification test detects fourteen high-risk HPV types (16,18,31,33,35,39,45,51,52,56,58,59,66,68) without differentiation. Performed at: [facility] [id number] MD Ramona Plunkett Performed at: =G [facility] [address] [place], [place] [id number] MD Ramona Plunkett Performed By: #### 3 [id number] #### [facility] [address] [place] [address] PAP [id number] 02-21-2024 Collection Technique BRUSH-SPATULA Normal [facility] Comment on above: Performed By: #### 3 [id number] #### [facility] [address] [place] [address] Gynecological Body Site CERVIX Normal [facility] Comment on above: Performed By: #### 3 [id number] #### [facility] [address] [place] [address] Other Patient Information MENOPAUSAL Normal [facility] Comment on above: Performed By: #### 3 [id number] #### [facility] [address] [place] [address] Previous Cytology Negative Normal [facility] Comment on above: Performed By: #### 3 [id number] #### [facility] [address] [place] [id number] Previous Treatment NONE Normal [facility] Comment on above: Performed By: #### 3 [id number] #### [facility] [address] [place] [id number] Calciumon 02-20-2024 Calcium [Mass/Vol] 9.2 mg/dL Normal 8.9-11.1 [facility] Comment on above: Performed By: #### 2 [id number] #### [facility] [address] [place] [address] Creatinineon 02-20-2024 Creatinine [Mass/Vol] 0.6 mg/dL Normal 0.5-1.3 [facility] Comment on above: Performed By: #### 2 [id number] #### [facility] [address] [place] [address] Vitamin D 25 Hydroxyon 02-19 25-hydroxyvitamin D3 [Mass/Vol] 69.8 ng/mL Normal 30.0-100.0 [facility] Comment on above: Performed By: #### 5 [id number] #### [facility] [address] [place] [address] eGFRon 02-20-2024 eGFR 107 mL/min/1.73 m2 Normal >=59 [facility] Comment on above: Order Comment: Order added by Discern Expert. Performed By: #### 1 [id number] #### [facility] [address] [place] [address] Coding Summary.on 02-05-2024 Coding Summary. [id number]+PG h lYWQ+UN1DOEEjI91jkBWp wT1qJ7XXQAiTSsauEHWRV TjBTsFmefLaQP0meROiWO Ju IC8+GG4nVTOyDeptnYMem 1H9iJT6V31clo5pIGyeqQ Q4MFGhKsPhfhjrc0fzwEq 6IDcuNmluOyBt LJVboN86KDH6eH47Gw64k TLrwBZfm3qdjRe4JfLyQH TcTBT0uCbfCTmrb6MkFNV cS67laRKvy4G5 UASvsGmlsARgHwGwsHF8m N9hWXeemdfkv8dveeczYt i8mn20mAPak9H9tRZ2W6Z xhiU5PCFceRFa EchioULJxE0vaanho1ppd bqeTpBzKJSbIDx8AIf1AK BwzWjoXzUbGJ87QDZ8ABC uodLcM9IiUMEe uDzgAtS3h2N7Xq6DY0PBQ tktD6PQOEREVJbmfYJ+PC 91ii31L4RjMqrwInq7TYD sNPF5mDC0mG2p TTGfXWzrp1U9yJO9J9Gqq pQrmm3hz6jaHFVyGXygM1 2ruPOut6H6ISAbpJZ8TTH msDzqLdQfiR28 Oyc+XRFeiNnio4PsMztpr 1bvc1lhiZr7QfcmBJOyrz YniJatQHG6a1EfLy5yIMY prXP6xTG1dY2k VaLhKfD8WCbjW970KgMjk PHqKnecG91cP5UhfIM+PH LzWof1TYLivKilAZ9eX4U hZGRpbmctbGVm fSocEV3aAFBxayjnGAThi C6vMIOpZ8n0TdDtVlR9LS dgJ5JyZJOuchyiSx74iS9 cAeAcXvB5TSga D2WlzeY2QOSvzCUeSAwjD OT3R70cm2Z2PIWbNPUkRH R3jCQ4iC4wxMnctkgtlCC mdDsgdmVydGlj LLajAFwoA413UDMsiLugO kNvZGluZyBEYXRlOiAgMD YvMjUvMjAyNDwvdGQ+PHR jNDQ9lGilZUKj pZImJLtwBp7toJxpfHooB E6aPWHuoobaTXYhuV5yOU VkzLZfbPreUP9lLJShfcn qt846VuPmNLH8 TSLuzXDeM7LpeY3gHsByH VImCGJrL9IcmXQtNNdwS6 81CHkjFrB2RKHbvmIrQ2N sLWFsaWduOiB0 g1S3Zq4Ol4DgyhbjX7Hhf SGxUsRvYsraOAk3W3BuYg wvdHI+LT36WAIzNJ51TEt 1AHV5xOmsWTpn WMGqP6MldG7cEvOjUGUwZ GRkOyc+PHRhYmxlIHdpZH RoPScxMDAlJyBzdHlsZT0 bCw3aEXBiIYJw qHtmoDPtAxEpa4szBINbC NsiOV3dmCefT1OjkOK4PZ Gzj5c7Jm73E02lP4SmqTZ +FJEhpIW0oMD7 lL2kIdEjMnZ4SPxlP985Z lHqxYMdLsrsq5iwe5xrbL m2JrB4DKExgrByxEckTJO 0c0QwDu66X32e IHdpZHRoPSIxNSUiIHZhb Fmbun6sgV7cRl3+PGNvbC J2gJI9uX4bXbHdFnS1OZu yL781HaZxrJFa Pmpgt8frq3bzbAw7DqQxD XQqapIazAbbSDN2a0LjCr 42S0TlfDvpf0FfGkm3mf0 7lFYah7D6wKJ4 Z8UrTWLuivoonPRayDvwW A6eOOItuuunOZEcmC1vNH SbA5h0AgUlOpV8FRwwF6R yypU2DFAmkCEp DPCrdPNBgV5uysmbd4tkd qdcDrNoXVItGZb7BLt6RZ WrnZonTgAlHUQ8DeA9OUV 8lKSsvD2xwYyb virogX6gRmi+SNL7zIVxj IULMJ0vIdtnnWM+PHRkIH I3eGubVJtxPHRmkF6dPMV nR6k6TpHyMeH3 FAabN4QijwN6KQHurQViY BNawEYYwE3vhhipw3vufz wpKoUtVTDfSCc0ECf9UOC saWduOiBsZWZ0 NzC4TQI4sRWztC4blPjfq bjxhK8jRch+QmlydGggRG I2RLu8P3DpHnd3OPVamKf mXQ6nsOCcPBxl Cr3yxJdxuOofUR3bKURhu maha499GnDss9jiZCBsrU LtMYmsRAR2M40aa4O8PFZ oWCSwGNC8uXN4 dM7uvSwhgctugFNjuDlun tYlySdzDIsdPYeuU993OU LjfJvtUnDeDJp0L3MqOwq 9TTMtdNpiDY4w aLVxVJbaYu3ceRsltYvoS S4qDOTjcavyt424VmPev5 zzFCXlkUTxJQoiXKB0E39 vs0N4ZFCsURDr BXC6eJQ8nJ9cgAbeelvuq GVmdDsgdmVydGljYWwtYW azF044PMLziKinAyUdwCq 0V5JxVwh3GXLx tCauVO1zgFSmHAegDu1aw HelfPkqLL2hYAKyvvsqr8 41RtMix0zyRDXyoYPjYAa eAQO3R13xm4R9 QGIqEAYlYFP7nFS5zZ8qh GlnbjogbGVmdDsgdmVydG wbTUzsFLrqY346OBDmkKd nPlBhdGllbnQg KGjuLGt8X1EkHiruvJP+P S91FJLzJC61yTWfyBUtx6 kymEj3EpBwHQNeZQW0aZp bQDhjq5AxVFLw D21lwZQqk4A8WYUcqQesx ZWqZuRdbHV4tW8gDPtrdr ejs5yflednTxxun9ndjj8 5sA28R67iDMiw ZHRoPSIzMCUiIHZhbGlnb x5jbV9iDc2+MOGwiGJ4xE G9vE1gLWOlLcP5AIpuI77 9InRvcCIvPjxj f5vnx9msaOx2WyJ9MGYoo zLnsHnqJWD5d7YrUo44T6 9sIHdpZHRoPSIyMCUiIHZ leTlajg9owX4i Ii8+MYNzfFU9eMS7pK7cK qXuOnJ8TJieZ342JaRsbN QlRlavB15jF9CzzIA+PHR tJqp6OBJujMgg IL6luJMvKBxzGj3aZZE5V tLrDgZfOIwpH7EzZVVmho gphdxsaCS8WLWjCWVbwU4 9Ei9eaUjtKREs qWBToZ7oqrgnw5jnrghcF lYiZLLmLIj8JRj6RILwdD uqJyZpFBQ2AhK1RTD9oBD niX7xhWtxedgv kX8nY8EwMYHzduhtWr80g Y5fLmMsHpZ3WQlsAnj+UE jFYSFEK9JAUPGDBKEXVNe gQTwvdGQ+PHRk OAC6bBgjGGolUZAagZ2mT DNhH8b8EfQdHrU3UZeiP3 CzQMSeggomXf75mO7nUzB tGeL2UCtqG7Zr ssK6YQOzlEZrKGneKNR8L 97lj5X3ISXqPHNuHLL4qT Q5lM5wmPqmrvhlqQStsJk gdmVydGljYWwt ITzxA565NRRpgHhnYfN4U jA5HaD1SzJ7N0XzJot4EZ GkxXozHA8ulAPrSVdcNc5 urSquhWfsWR5p XUFsmstfBQFkxX2aYZIsh GEfrCvxYF2qHOBzmwepk4 12UdNoRMO6KFIsmMMnO1T uyB9uAbKsFWLu GOOrS8PuxEGvTTlaR918J BcnBoU7IOJxltTfJ0FuDG OwrKkiTaZ3y9S4Rf46MfC ZZWFyczwvdGQ+ WXJgDZM1vCvkXKmqZUSyv R3oTGYtD8y9GaCoQfB3YW xcV2ZoQRWrjhjdTx41qV3 jUqVxPcN6KRhs D0LrpjE5NIVsbDSmKVghR LB7N14sj7G6EZNrHHHpSH N4rHX2eN0cjOlypyvfrPF mdDsgdmVydGlj PDvcRJgnI050NUMyoFviR kZlbWFsZTwvdGQ+PHRkIH D1lQojXDuiUUHigX4xZKN mD5e9WaDtYoW4 CTllL8WkUBWtpjogDm65z N2zOzQgLgO9BMlnX4Uvvh D9DNMqbLNiLGfpPGO3L67 ld3R3DGYzOLFf NBH7nUL7hS2suDgnsyvhb GVmdDsgdmVydGljYWwtYW jnG252HIZvoZfzYe83hUX oaFyzzqZ1X5Hi PjwvdHI+ZH95WGIzQJ91d BWgaQDzr1yrsPf6HoZsCH TfYAB8nObaGTzwn0PqPHE eA22faIOsg8Z5 BRHgnQdwwEKrKxWrvRE9a L2cGOmqzymcl8zklncfRw ltp6axow79xG24O13uYGa pZHRoPSIzMCUi CTOjaFnlgn2pgZ3dTb5+P RTgwZK9tFV4dL3iZyOwNe K3TFrfZ482ZxMijOQtCpn ym3yst9ybzEl5 ZiZiOMMcnwFlhHfiISV5g 3EuGo62A64iAQtrTIHrWQ UrJHCxPRJakQgfjv3uiI6 wIi8+CU2ex4yt uq64kV69gDA+ORIpLVN1x EgsGSehYRKqpA6oXEhtCv L8XUXxYdSthJ99xWApCPc nSh1leNdrkAxk VK0lCUVjhebcp675PfXsu 2udIORofXCmIChuOGS9H2 3lw5M2PTCgXEPfQBO0qZE 5fE0bnOhaboan bGVmdDsgdmVydGljYWwtY XgjK023PWHdyGpjXeMsoU GtT3swvvKRYN8wOsajrSM +RQJnQWD7hFpo UJgeTNLgqX3uOBTuK5s1K qSdSbR0KFmnC3LyatG0OG UuvGFkDQFadPUVgS8qigm xx9ttssgmZnPe HONbOUy6DLv1JSOvuCaaT aIaHDY0ZaE4ZKG7lIXabB 9zbQvaiqrfyB3gIkj+Rkl OOjwvdGQ+PHRk XNG4yAkbTTghGGKxsN6dK ONtG5s8JuQwZyS9NNzuH4 PkwfZ8HXKgcLWyCOXybOV UkJ2mdapqn9px xdtpWeYxGRCaONp4NUx0M XTytHlrTkTvZSR6DqT7PG S3mNMegD3hnIkmpmotbK2 wOyc+TVJOOjwv dGQ+KOAoJFU7hTyvJKmrC BZzjK8eVSClZ5r7ZsQjLx H8QBrrW2OarfQ1IBEodSA iLCBfcTRWwN1v ggrps4mokkjzRvAdNJBbO Dy7KTx3AMDswGgsHtSfLD P2JfZ2PEH1cCQumN2rxVq hmpbwyA7fLgz+ SBR7FWD5QL58JN56Y4SzV jwvdGFibGU+PHRhYmxlIH dpZHRoPScxMDAlJyBzdHl oTC0aPh1xEVGl LWNvbGxhcHNlO (more content not included)... Normal [facility] Coding Summary. VUDGKnob68KOz7yVa+PG h lYWQ+IX6LESMfP40qqJXy vI2eS2RUUCuENlyiKRATA RrIVfGoxkYuQQ8mbQIwTY Ju IC8+QR1gPYOeHpuwaRGzu 2G8xVC2V96qkg5vDOkweR V8YHSkOjYzcvabp5kgoAc 6IDcuNmluOyBt PMWkyM01CUL5rN31Nt51v DBksJMbu8ixaGp8WtRwKV XvACG0lDjaUVnjc5UqXGK aY29pgOVeb0R5 SLJqdPuktZAvFuCcuJL3l L9aHBjsujtml5yvfkazBx n4ce93qUZot3H5rCE2D7S gspY5HNGvzBFv LioroAPDsO0xywkmb4puk qehTfZjURBfLKk9ZXp3MW XxmZanFoGjWX69EXS8LEQ mmrWmA5SxRPBv pZejUqJ4p6I3Hk7EC0JKL dpbH5NYNUFFODdgpKD+PC 97kw56P2BmRqaeOvl4EZK oRGD8hNN8mN4m PKLvCWqoi3K6oVZ9R2Uvk sDlhv3bq7jlMDYuQKzaZ3 3doOKrx4M2DEOfyQP9MQP rnKsqNfCzzL40 Oyc+XRHheIote9AsErvqe 9opl1vcfCq5OodnXIAegd HzdEweGDD3b6TvIg5nAHP ukXO4mCM2zH9e SqLkCjW1OLqaF326TfAas GWzKatoW84nI7NlvIQ+PH PpMqx2EICuiXcaVK6cX2S hZGRpbmctbGVm qCwrJU9eDNKiyzimSSYtx Z2bOXRpD2n1WgEdJyI1BM uvF9FaXNBuhohwFk36tB0 aWdEpEjT8WEku A3EfkyX4LVBttKPfLOcvU NP3C39wv9R5FWYtIVElAX N6fKK4qI5cwCoucbunpIE mdDsgdmVydGlj ZIwnAWmcN997ZRYcaZnrM kNvZGluZyBEYXRlOiAgMD YvMjUvMjAyNDwvdGQ+PHR yPWU0rLboTOIt kLXnJYmiKr4tjIbexFzzA T0vUNXwubwdVHBijJ0uGW HtmHWgxCkoGN7sGVEyhpv ox223BkJgOSC2 WEOhfVJwD6OuiU0wTdTyA JVuGVPnR1FkoSYvLWmqF8 25QNjwCiQ0OUKyeoQxE8B sLWFsaWduOiB0 x6K3Fx6Cf5LwgvswU5Hbi MMyBwRiEleiLIt5Q0JzFw wvdHI+PB12BUSfIS87DVi 2PGZ7eQiaFHub BZLoQ3SccY4sBhGeXJBfJ GRkOyc+PHRhYmxlIHdpZH RoPScxMDAlJyBzdHlsZT0 dTb1yVXLrRNYx lZjmhVTsElSqq0omFQBbC FpmLL6aaRgdZ7FylUP0YF Rib1o8Qp10M00sF1OzzAT +TTXrxBH6wDB2 iO7hVqBaGyV8AGavC001Y mRcmQQvIpxgv8yue5xocO g5SuM1YZNbrhNxmZqnEVI 1o4JxJc12H82n IHdpZHRoPSIxNSUiIHZhb Khswo5jiU3sFe3+PGNvbC Y7tLT6mT3uMvMuEfS8SIr hX810PjMtgMRl Yviph0vsg2nxjXd6BvCsT MWftcAlfNovJHG7n6MsAm 35R3CioLhtn3BlJtj6os4 6oPSpf9V8sTQ6 Z9HkZNMoymafhDFnlHsoY U7rKIWlaihpXXJndE7oPQ GkV9j2JhQnWcY7LSswP1M qzkT9ZXKffDDc SMIcjFLRgT9hpexof6kze fycQuXnAKYjXEk2CAr7AV QvhOxoVpFnCWB0GwF2VTU 1wSDvyP1rxObp fnaerU3bGbx+YWO4uCYit YAJPU0nIvcvtFE+PHRkIH L3oEzaFCrfWDTknL9jYMM lZ3c4VkFzEtQ1 BVldQ1AoscH4HBWasNZmO OKeaMTRdQ2iopwlk4gknh ntZqYqLXAsGFt4RKo6WGG saWduOiBsZWZ0 OxG2BQB1wULnzM7cnEiwa gyuaU4iLnw+QmlydGggRG H3FFm9D7WvUpo4HNKylKr fQR2udBVhPGgs Oa5ayCizoTlcBA2gZWIfi rikg372ZjLfy6sgFGWjpU JkFNaoEQN1Z99es8K0QMG lZMFkNXC6bBT8 dZ8jqRhomkomxICbjFnti dStlTmjZVcyNKomG430FO VmpRbfXmNuVYo6T6BkHjv 2ROIdwHpeQX7n yVTxRTwsCk5xtTxbpHjaA A0hSCYokwhnk175MnIvm1 ngRJVqzWGuECuwKMF6F58 so2A7LOUoUPIn IEU5uDV8pX7wmUsifnqbt GVmdDsgdmVydGljYWwtYW zkK126HHBmvIzyKcOejAn 1N3VpShk2WPVs vWmaBX6akNWaQMhaIr0ec TatxWneWR3yWUQizbahq5 71KqCce4giSBBaqRAmCQt bFVE5E15we6B1 LPZjJXDzTOA9gQO9oK1td GlnbjogbGVmdDsgdmVydG ayPDekGJhvC472IFZnoIc nPlBhdGllbnQg JHwdTIv1B3HhWdmojDV+P Z87QEDmAO88pEUpdPWte6 lcpJp5JySjBWByIKY9dQa iIHsup7OnAMBs U84peBIps1Q9QJIayTiij DUiAtWsnNB0rQ6sLOikdx aba5hzdhnlPnexj3lbub0 1sE12Q18oSTan ZHRoPSIzMCUiIHZhbGlnb b0qtL4oXh8+RYCyvJZ7uG T5xL7lRRLlYzI3TQswS18 9InRvcCIvPjxj g9mif0sftJt8BhW5JLIob vXcsDjiURA9l1AyEh69F9 9sIHdpZHRoPSIyMCUiIHZ juJbrso1iyS7e Ii8+AGKmtRF2aDN5rJ4tJ rEiOuR1JWeeD151XwOziZ SfEnwjE78zQ7CtvDH+PHR gMdu7EBMutRev DS8irTZbRCxfSh3mIFU0O yQkLiLfLPgkI4MiODQvzj mgnzehlNQ9YPNfORDhsV5 1Cp0mmXibLLSe kRVFjH0nlcorz2phipztQ vSjRUWkWMb4INq2ZTBmaS lnDmDyXZW3YyO8JXT3bZG blO7xgWawlfzy bN4oY1XxPBFywmrrVf36p Q9gAdIoJdN9TCgsFnn+UE hBMLUQV1KUFYJVXVKIZVy gQTwvdGQ+PHRk JTU6zYesJSzfXXWfnK8rG TNzV5l9NeFkZoV8CDlsL9 ZdHXSyfdlcHw94tY3qVfX iOmX7COzaX4Tw xfM3QLNmqCGiXDxlBNT5K 31js6D3DKHmIKUhFLE8bD B9eZ8vbBncjhnadSLoqQk gdmVydGljYWwt YJbfM758QUUtrEivLjB1Y gR1DkB6GkT2U6YsZeb5BW BazVttJR2wxOFgXSxyEc0 laGjvqKdvAP7o CPFtckccWWAhlL7hIHQxw SDoaQetCQ9dOOGehdwup8 72VqNvYZJ5KZSeeAVeK2A lfV1rVsLeMOAc XEUoH0UsiGAvXOpxX466Q TakAgD4ACRdbtNkW4JgJN KzgFuxXxP2r2H3Ed72GhQ ZZWFyczwvdGQ+ LRVkGBM7tIhgYMsqEGKde C3qLSFgI0t0KjEoMhH1WI rhM3BbPIUmlgicXl35gN8 lNjKmBcF0DGto L4CfnoV7LYUrqGSuELykE YN5U58fw6C1MLRrKEUeQE W5wRY7wR5scXemmfblgPR mdDsgdmVydGlj JQgwJQryS546FBAzbBuxI kZlbWFsZTwvdGQ+PHRkIH J5pDmzOSgpUDKrbQ7nGHY qW3j1FfDhKlZ1 SXjaZ9WzYKDgnzeuHl87y Q7nZfOhWrU1URojT9Qipo S8SVPatTBgKNonUPY1J88 al4Q8CECcRYNh DIH8dRE2nL8urUmrwogeg GVmdDsgdmVydGljYWwtYW lmN972AGSkyXwlXb85vDZ dbZaaanP5R8Vb PjwvdHI+BA58UBOpVV16q VNnzSQwf9hhrWw3ZhJcGD LcJGL1tWqyJUvyc0NuYOU eM86eeXFlv5S0 VEDxqDclpJZyUrTefNV4q H3yAGwhorxzv6gawuxrLv lgq2dufg69mH46E05tXDl pZHRoPSIzMCUi OMWdoUaicd4zwN5fRt6+P YDiyKT2lNO6jV2oDuHuXg H7VSorB798PbQtfNXhZjn kd7fmv1ineKo4 TtLkIFGkosWztIcgJNF3v 6IdUa58T97vMDitHYHqLI FzQJTpMYBzuUdgmc2yeU5 wIi8+SG2zq3bi dz93cE17yCI+JVQoQQU6g SxlOEnxJBYtkF3mXJifJu E6FVFcPmOxeU18lLUqPFl hKx2rkFqggIze QC6gNMQpeqvld048UmIpd 0lmFLRhtSWzKLvoGNI7V3 2qc9S3KTTgHXScCLV5eMO 0yG1zhVwrhgeb bGVmdDsgdmVydGljYWwtY PueO089GEMevZyvHzHrgO VqC6hjxjZNWN3bChzavOB +YOUjCQI8jWin NXddSBBkxJ3hKVOkT0b6L cCrEiV9ERyfZ2GvtuX6YV YltFLiDUQzkPPSsR3dsgr eo9dsfzxgWbWp LXYkWSl8RQq3WYCujJlxK oSuKFP5FeV0CKR4qSPdoX 5qqFkknpcpgC9kAqp+Rkl OOjwvdGQ+PHRk DSR7uZtbWCehQIFpxE7aU KAtO6b5KnJmSpI1YHhxX7 OgkqX6YZUkvVNuJIRcbKP RkK0whzxzg2ch zqszXpPfDCCsEZc8EGt3Z FDyyStkBpZgUQV9OpE2WM S0uJSkbR6suVyqvcyglQ1 wOyc+TVJOOjwv dGQ+BAVjAKM6qXwqRPkyX VMpiM3pCGSaR9f2JuXwDt M0NAkeB5IecpQ5PLAnqUI dREPuuOSMaJ6e ayuil1agrifmXqYcAGIqY Ld4EVt3XVSeoVpxBqSgBN J1HpP5TJS7rBFfpB2mdHm olcckrB5cRso+ LBS5NDY9FI34XM60C6PxV jwvdGFibGU+PHRhYmxlIH dpZHRoPScxMDAlJyBzdHl tUR2oXr7fDLAf LWNvbGxhcHNlO (more content not included)... Normal [facility] Consent for Treatmenton 01-11 Consent for Treatment [id number] [facility] Oncology Progress Noteon Oncology Progress Note Chief [...] 0.2 cm... Her tumor was ER negative, GA negative, HER-2 negative. She had follow-up right [...] radiation 06/23 to 07/25 Dr. Padilla in [place]. she is healed up. She tolerated radiation very well. 11/23/21 no issues. Some pain when stretching that right arm but no other complaints. mammogram this month was birads 2 . 01/11/23 feels pretty good overall no new bone [...] Normal range of motion. Integumentary: Warm, Dry, [place]. trace edema in legs. 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 ER negative, GA negative, HER-2 negative. completed adjuvant chemotherapy AC followed by taxol according to guidelines from November to May 2021. completed adjuvant radiation team in [place] in Jul 2021. she had [employer] 7 gene panel was negative at diagnosis. Mammogram December 2023 negative for malignancy. Next will be December 2024. ANEMIA iron repletion iv in january 2021. December 2023 labs ok, she is asymptomatic, will continue to monitor Follow-up With When Contact Information Can Solis DO ONC [facility] [address] [place] [address]- [phone] Fax Business (1) Additional Instructions: follow-up in 1 year cbc, cmp, iron studies in 1yr prior to follow-up. mammogram in a year. Can Solis DO, ONC [facility] [address] [place] [address]- [phone] Fax Business (1) Additional Instructions: Medications FLUoxetine [...] (Dosing) W (more content not included)... Normal [facility] CBC w/ Auto Diffon 4 Basophils/100 WBC (Bld) 1.2 % Normal 0.0-2.0 [facility] Comment on above: Performed By: #### 2 [id number] #### [facility] [address] [place] [address] Basophils/Leukocyte s Auto (Bld) [Pure # fraction] 0.1 E9/L Normal 0.0-0.2 [facility] Comment on above: Performed By: #### 2 [id number] #### [facility] [address] [place] [address] Eosinophils (Bld) [#/Vol] 0.2 E9/L Normal 0.0-0.5 [facility] Comment on above: Performed By: #### 2 [id number] #### [facility] [address] [place] [address] Eosinophils/100 WBC (Bld) 3.3 % Normal 0.0-8.0 [facility] Comment on above: Performed By: #### 2 [id number] #### [facility] [address] [place] [address] Erythrocyte distribution width (RBC) [Ratio] 13.1 % Normal 10.9-14.2 [facility] Comment on above: Performed By: #### 2 [id number] #### [facility] [address] [place] [address] Hematocrit (Bld) [Volume fraction] 37.0 % Normal 34.0-46.0 [facility] Comment on above: Performed By: #### 2 [id number] #### [facility] [address] [place] [address] Hemoglobin (Bld) [Mass/Vol] 12.5 g/dL Normal 12.0-16.0 [facility] Comment on above: Performed By: #### 2 [id number] #### [facility] [address] [place] [address] Lymphocytes (Bld) [#/Vol] 1.2 E9/L Normal 1.0-4.0 [facility] Comment on above: Performed By: #### 2 [id number] #### [facility] [address] [place] [address] Lymphocytes/100 WBC (Bld) 23.1 % Normal 14.0-50.0 [facility] Comment on above: Performed By: #### 2 [id number] #### [facility] [address] [place] [address] MCH (RBC) [Entitic mass] 28.7 pg Normal 27.0-34.0 [facility] Comment on above: Performed By: #### 2 [id number] #### [facility] [address] [place] [address] MCHC (RBC) [Mass/Vol] 33.9 g/dL Normal 31.4-36.0 [facility] Comment on above: Performed By: #### 2 [id number] #### [facility] [address] [place] [address] MCV (RBC) [Entitic vol] 84.6 fL Normal 80.0-100.0 [facility] Comment on above: Performed By: #### 2 [id number] #### [facility] [address] [place] [address] Monocytes (Bld) [#/Vol] 0.4 E9/L Normal 0.2-1.0 [facility] Comment on above: Performed By: #### 2 [id number] #### [facility] [address] [place] [address] Neutrophils (Bld) [#/Vol] 3.3 E9/L Normal 2.0-7.5 [facility] Comment on above: Performed By: #### 2 910097 #### [facility] [address] [place] [address] Neutrophils/100 WBC (Bld) 63.9 % Normal 36.0-75.0 [facility] Comment on above: Performed By: #### 2 [id number] #### [facility] [address] [place] [address] Platelet 249.0 E9/L Normal 150.0-500.0 [facility] Comment on above: Performed By: #### 2 [id number] #### [facility] [address] [place] [address] Platelet mean volume (Bld) [Entitic vol] 8.4 fL Normal 6.4-10.8 [facility] Comment on above: Performed By: #### 2 346079 #### [facility] [address] [place] [address] RBC (Bld) [#/Vol] 4.4 E12/L Normal 4.3-5.9 [facility] Comment on above: Performed By: #### 2 121973 #### [facility] [address] [place] [address] WBC corrected for nucl RBC Auto (Bld) [#/Vol] 5.1 E9/L Normal 4.0-11.0 [facility] Comment on above: Performed By: #### 2 085197 #### [facility] [address] [place] [address] CMPon 01-26-2024 Albumin [Mass/Vol] 4.2 g/dL Normal 3.3-5.0 [facility] Comment on above: Performed By: #### 2 245145 #### [facility] [address] [place] [address] Albumin/Globulin (S) [Mass conc ratio] 1.6 Normal 1.1-2.2 [facility] Comment on above: Performed By: #### 2 [id number] #### [facility] [address] [place] [address] ALP [Catalytic activity/Vol] 101 Int._Unit/L High 21-98 [facility] Comment on above: Performed By: #### 2 480722 #### [facility] [address] [place] [address] ALT No additional P-5'-P [Catalytic activity/Vol] 27 Int._Unit/L Normal 6-46 [facility] Comment on above: Performed By: #### 2 246756 #### [facility] [address] [place] [address] Anion gap [Moles/Vol] 10 mmol/L Normal 6-16 [facility] Comment on above: Performed By: #### 2 104995 #### [facility] [address] [place] [address] AST [Catalytic activity/Vol] 21 Int._Unit/L Normal 5-43 [facility] Comment on above: Performed By: #### 2 [id number] #### [facility] [address] [place] [address] Bilirubin [Mass/Vol] 0.6 mg/dL Normal 0.0-1.1 [facility] Comment on above: Performed By: #### 2 113679 #### [facility] [address] [place] [address] Calcium [Mass/Vol] 9.5 mg/dL Normal 8.9-11.1 [facility] Comment on above: Performed By: #### 2 363126 #### [facility] [address] [place] [address] Chloride [Moles/Vol] 102 mmol/L Normal 101-111 [facility] Comment on above: Performed By: #### 2 323846 #### [facility] [address] [place] [address] CO2 [Moles/Vol] 30 mmol/L Normal 21-31 [facility] Comment on above: Performed By: #### 2 492142 #### [facility] [address] [place] [address] Creatinine [Mass/Vol] 0.5 mg/dL Normal 0.5-1.3 [facility] Comment on above: Performed By: #### 2 [id number] #### [facility] [address] [place] [address] Globulin (S) [Mass/Vol] 2.7 g/dL Normal 1.4-4.0 [facility] Comment on above: Performed By: #### 2 [id number] #### [facility] [address] [place] [address] Glucose [Mass/Vol] 73 mg/dL Normal 55-199 [facility] Comment on above: Performed By: #### 2 496477 #### [facility] [address] [place] [address] Potassium [Moles/Vol] 4.0 mmol/L Normal 3.5-5.3 [facility] Comment on above: Performed By: #### 2 499086 #### [facility] [address] [place] [address] Protein [Mass/Vol] 6.9 g/dL Normal 6.0-7.8 [facility] Comment on above: Performed By: #### 2 213105 #### [facility] [address] [place] [address] Sodium [Moles/Vol] 138 mmol/L Normal 135-145 [facility] Comment on above: Performed By: #### 2 [id number] #### [facility] [address] [place] [address] Urea nitrogen [Mass/Vol] 10 mg/dL Normal 5-21 [facility] Comment on above: Performed By: #### 2 035086 #### [facility] [address] [place] [address] Urea nitrogen/Creatinine [Mass ratio] 20 No Units Normal 10-20 [facility] Comment on above: Performed By: #### 2 579545 #### [facility] [address] [place] [address] Consent for Treatmenton 01-11 Consent for Treatment [id number] Normal [facility] Ironon 01-26-2024 Iron [Mass/Vol] 83 microgram/dL Normal 35-153 [facility] Comment on above: Performed By: #### 2 914100 #### [facility] [address] [place] [address] Iron Saturationon 01-26-2024 Iron binding capacity [Mass/Vol] 309 microgram/dL Normal 250-400 [facility] Comment on above: Performed By: #### 2 [id number] #### [facility] [address] [place] [address] Iron saturation [Mass fraction] 27 % Normal 20-50 [facility] Comment on above: Performed By: #### 2 832214 #### [facility] [address] [place] [address] Transferrinon 01-26-2024 Transferrin [Mass/Vol] 221 mg/dL Normal 200-370 [facility] Comment on above: Performed By: #### 2 890563 #### [facility] [address] [place] [address] eGFRon 01-26-2024 eGFR 112 mL/min/1.73 m2 Normal >=59 [facility] Comment on above: Order Comment: Order added by Discern Expert. Performed By: #### 1 [id number] #### [facility] [address] [place] [address] CNOVon 2024 CNOV Office Visit (RADTMS ) EVE LINDSEY ([id number]) 1970 F Date Time Provider Department 01/18/24 [...] centrally located, pathologic stage pT2N0 (sn), ER-negative, GA-negative and Her2/pao not amplified, satge IIA, s/p [...] Most recent mammogram: 01/08/2024, BIRADS-2 status: Post-menopausal. Boat Rigger offered: Patient declines ROM: Good ALLERGIES Allergen [...] by: Ishan Padilla MD cc: Rell Barbosa [address] [place] [id number] [address] Can Solis Referring Provider: RELL BARBOSA [[id number]] Allergies As of Date: 2024 Noted Allergy [...] for Encounter Date Provider Department Center 2024 [id number] PADILLA Encounter Status:Closed by ISHAN PADILLA on 01/18/24 Normal [facility] Amphetamine Screen Ql (U)Ord ered By: Ashley Murrell on 01-16-2024 Amphetamines Ql (U) Negative Negative [facility] Barbiturates [Presence] in U rine by Screen methodOrdered By: Ashley Murrell on 01-16-2024 Barbiturates Screen Ql (U) Negative Negative [facility] Benzodiazepines Screen Ql (U )Ordered By: Ashley Murrell on 01-16-2024 Benzodiazepines Ql (U) Negative Negative [facility] Benzoylecgonine [Presence] i n Urine by Screen methodOrdered By: Ashlye Murrell on 01-16-2024 Benzoylecgonine Screen Ql (U) Negative Negative [facility] Cannabinoids [Presence] in U rine by Screen methodOrdered By: Ashley Murrell on 01-16-2024 Cannabinoids Screen Ql (U) Negative Negative [facility] Comment on above: These are unconfirme d results and should not be used for legal purposes. Drug Cut-Off Concentration: AMPH 1000 ng/mL EMIL 200 ng/mL ALANNAH 200 ng/mL COCM 300 ng/mL OP 300 ng/mL PCP 25 ng/mL THC 20 ng/mL Drug Screen,Urineon 01-16-20 Amphetamine Screen,Urine Negative Normal Negative [facility] Comment on above: Performed By: #### U RDS #### [address] Barbiturate Screen,Urine Negative Normal Negative [facility] Comment on above: Performed By: #### U RDS #### [facility] [address] [place] [address] [place] Benzodiazepines Screen,Urine Negative Normal Negative [facility] Comment on above: Performed By: #### U RDS #### [address] Cannabinoid Screen,Urine Negative Normal Negative [facility] Comment on above: Result Comment: Thes e are unconfirmed results and should not be used for legal purposes. Drug Cut-Off Concentration: AMPH 1000 ng/mL EMIL 200 ng/mL ALANNAH 200 ng/mL COCM 300 ng/mL OP 300 ng/mL PCP 25 ng/mL THC 20 ng/mL PERFORMED BY: [place] [address] PATHOLOGIST DIRECTOR OF PLANNING LEANDER ISSA M.D. Performed By: #### U RDS #### [address] Cocaine Screen,Urine Negative Normal Negative [facility] Comment on above: Performed By: #### U RDS #### [address] Opiate Screen,Urine Negative Normal Negative [facility] Comment on above: Performed By: #### U RDS #### [place] [address] [place] Phencyclidine Screen,Urine Negative Normal Negative [facility] Comment on above: Performed By: #### U RDS #### [address] Opiates [Presence] in Urine by Screen methodOrdered By: Ashley Murrell on 01-16-2024 Opiates Screen Ql (U) Negative Negative [facility] Phencyclidine Screen Ql (U)O rdered By: Ashley Murrell on 01-16-2024 Phencyclidine Ql (U) Negative Negative [facility] MA Mamm Screen w/CAD if perf and 3D Bilon 05-30-2024 MA Mamm Screen w/CAD if perf and 3D Nathaniel Exam Date/Time: 01/08/2024 14:11 EDT Reason for Exam: Z12. Report IMPRESSION: BIRADS 2 BENIGN FINDINGS, NORMAL INTERVAL FOLLOW-UP.12 MONTH RECALL. CLINICAL HISTORY: Z12.31. Right breast cancer with chemotherapy and radiation [...] very important to your health. The current [employer] and National Comprehensive Cancer [...] Joey Landa M.D. Transcribed by: DAQUAN Technologist: [facility] Assessment: BI-RADS Category 2-Benign finding Recommendation: Normal interval follow-up Normal [facility] Consent for Treatmenton 12-12 Consent for Treatment [id number]#1 .00TIFF Normal [facility] Physician Orderon 08-07-2023 Physician Order [id number]#1 .00TIFF Normal [facility] BMPon 05-02-2023 Anion gap [Moles/Vol] 9 mmol/L Normal 6-16 [facility] Comment on above: Performed By: #### 2 [id number], [id number], [id number] ####[facility] [address] [place] [address] Calcium [Mass/Vol] 9.1 mg/dL Normal 8.9-11.1 [facility] Comment on above: Performed By: #### 2 212101, [id number], [id number] ####[facility] [address] [place] [place] [address] Chloride [Moles/Vol] 107 mmol/L Normal 101-111 [facility] Comment on above: Performed By: #### 2 895244, [id number], 7118869 ####[facility] [address] [place] [address] CO2 [Moles/Vol] 27 mmol/L Normal 21-31 [facility] Comment on above: Performed By: #### 2 236682, [id number], 3049682 ####[facility] [address] [place] [address] Creatinine [Mass/Vol] 0.5 mg/dL Normal 0.5-1.3 [facility] Comment on above: Performed By: #### 2 692432, 17463821, 8871402 ####[facility] [address] [place] [address] Glucose [Mass/Vol] 84 mg/dL Normal 55-199 [facility] Comment on above: Result Comment: If t his glucose result represents a fasting glucose, interpretation should refer to the following reference range: 55-99 mg/dL Performed By: #### 2 724987, [id number], 8512122 ####[facility] [address] [place] [address] Potassium [Moles/Vol] 3.7 mmol/L Normal 3.5-5.3 [facility] Comment on above: Performed By: #### 2 316096, 05815256, 3458085 ####[facility] [address] [place] [address] Sodium [Moles/Vol] 139 mmol/L Normal 135-145 [facility] Comment on above: Performed By: #### 2 838255, 90457766, 8366900 ####[facility] [address] [place] [address] Urea nitrogen [Mass/Vol] 13 mg/dL Normal 5-21 [facility] Comment on above: Performed By: #### 2 923282, 53759509, 4526623 ####[facility] [address] [place] [address] Urea nitrogen/Creatinine [Mass ratio] 26 No Units High - [facility] Comment on above: Performed By: #### 2 253214, 27174894, 0618909 ####[facility] [address] [place] [address] CBC w/Indiceson 05-02-2023 Erythrocyte distribution width (RBC) [Ratio] 13.0 % Normal 10.9-14.2 [facility] Comment on above: Performed By: #### 2 159892, 43806716, 2503752 ####[address] [address] Hematocrit (Bld) [Volume fraction] 35.4 % Normal 34.0-46.0 [facility] Comment on above: Performed By: #### 2 051248, 51299951, 1664318 ####[facility] [address] [place] [address] Hemoglobin (Bld) [Mass/Vol] 12.0 g/dL Normal 12.0-16.0 [facility] Comment on above: Performed By: #### 2 621911, 20775963, 5529201 ####[facility] [address] [place] [address] MCH (RBC) [Entitic mass] 28.2 pg Normal 27.0-34.0 [facility] Comment on above: Performed By: #### 2 157878, 89123154, 9036195 ####[facility] [address] [place] [address] MCHC (RBC) [Mass/Vol] 33.8 g/dL Normal 31.4-36.0 [facility] Comment on above: Performed By: #### 2 651385, 44683337, 9341884 ####[facility] [address] [place] [address] MCV (RBC) [Entitic vol] 83.4 fL Normal 80.0-100.0 [facility] Comment on above: Performed By: #### 2 112304, 95931535, 5004209 ####[address] [address] Platelet mean volume (Bld) [Entitic vol] 8.6 fL Normal 6.4-10.8 [facility] Comment on above: Performed By: #### 2 962219, 63092476, 4930956 ####[address] [address] Platelets (Bld) [#/Vol] 209.0 E9/L Normal 150.0-500.0 [facility] Comment on above: Performed By: #### 2 952156, 86791788, 9302041 ####[address] [address] RBC (Bld) [#/Vol] 4.2 E12/L Low 4.3-5.9 [facility] Comment on above: Performed By: #### 2 515393, 09572071, 8155486 ####[address] [address] WBC corrected for nucl RBC Auto (Bld) [#/Vol] 4.7 E9/L Normal 4.0-11.0 [facility] Comment on above: Performed By: #### 2 104446, 76425863, 0908932 ####[address] [address] Consent for Treatmenton 04-14 Consent for Treatment [id number]#1 .00CD:127 Normal [facility] eGFRon 05-02-2023 GFR/1.73 sq M.predicted among non-blacks MDRD (S/P/Bld) [Vol rate/Area] 113 mL/min/1.73 m2 Normal >=59 [facility] Comment on above: Order Comment: Order added by Discern Expert. 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 Kidney failure is indicated at less than 15 mL/min/1.73m2. Performed By: #### 2 358213, 97179887, 8683289 ####[facility] [address] [place] [address] Physician Orderon 04-26-2023 Physician Order [id number]#1. 00CD:127 Normal [facility] BD Bone Density DEXAon 02-21 BD Bone [...] M.D. Transcribed by: DAQUAN Technologist: SAM Normal [facility] Calciumon 02-21-2023 Calcium [Mass/Vol] 9.2 mg/dL Normal 8.9-11.1 [facility] Comment on above: Performed By: #### 1 7940503, 9989129, 6641972, [id number] ####[facility] [address] [place] [address] Consent for Treatmenton 02-10 Consent for Treatment [id number]#1 .00CD:127 Normal [facility] Creatinineon 02-21-2023 Creatinine [Mass/Vol] 0.6 mg/dL Normal 0.5-1.3 [facility] Comment on above: Performed By: #### 1 4629183, 5749877, 3011025, [id number] ####[facility] [address] [place] [address] Physician Orderon 02-21-2023 Physician Order [id number]# 1.00CD:127 Normal [facility] Vitamin D 25 Hydroxyon 02-21 25-hydroxyvitamin D3 [Mass/Vol] 33.9 ng/mL Normal 30.0-100.0 [facility] Comment on above: Result Comment: Vit mendez D deficiency has been defined as a level of serum 25-OH vitamin D less than 20 ng/mL (1,2) by the [place] [employer] and an Endocrine Society practice guideline. The Endocrine Society further defined vitamin D insufficiency as a level between 21 and 29 ng/mL (2). 1. IOM ([place] [employer]). 2010. Dietary reference intakes for calcium and D. [place]: The National Academies Press. 2. Hilda MF, Hussain NC, Edith MC, et al. Evaluation, treatment, and prevention of vitamin D deficiency: an Endocrine Society clinical practice guideline. JCEM. 2010; 96 (7):1911-30. Performed By: #### 1 [id number], 2709748, 2863516, [id number] ####[facility] [address] [place] [address] eGFRon 02-21-2023 GFR/1.73 sq M.predicted among non-blacks MDRD (S/P/Bld) [Vol rate/Area] 108 mL/min/1.73 m2 Normal >=59 [facility] Comment on above: Order Comment: Order added by Discern Expert. 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 Kidney failure is indicated at less than 15 mL/min/1.73m2. Performed By: #### 1 [id number], 4115906, 9038174, [id number] ####[facility] [address] [place] [address] Physician Orderon 02-09-2023 Physician Order [id number]#1 .00CD:127 Normal [facility] 06-13-2019 Cholesterol in LDL [Mass/Vol] IMPRESSION: Mild levoscoliosis of the thoracic spine without acute abnormality. Prior L1 vertebroplasty. [facility] MRI SPINE LUMBAR WITHOUT CON TRASTon 06-13-2019 [...] seen. 3. Mild degenerative disc disease. Normal [facility] SPINE [facility]ORACIC WITHOUT CONTRAST [...] date for additional details. 4. Cholelithiasis. Normal [facility] Otheron 06-13-2019 IMPRESSION: 1. No compression fracture of the thoracic spine. 2. Mild degenerative disc disease. No significant central canal stenosis of the thoracic spine. 3. L1 compression fracture is seen. Please see MRI lumbar spine study same date for additional details. 4. Cholelithiasis. [facility] EXAM: MRI SPINE THORACIC WITHOUT CONTRAST HISTORY: [...] simple cyst. No paraspinal mass is identified. [facility] User, Interfaces - 06/13/2019 3:06 [...] same date for additional details. 4. [facility]lithiasis. [facility] IM[facility]ION: 1. Chronic, moderate L1 compression fracture, status post vertebroplasty. 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 2. No acute compression fracture is seen. 3. Mild degenerative disc disease. [facility] EX[facility]: MRI SPINE LUMBAR WITHOUT CONTRAST [...] significant central canal or neural foraminal stenosis. [facility] User, Interfaces - 06/13/2019 3:06 PM EDT [...] is seen. 3. Mild degenerative disc disease. [facility] EXAM: XR SPINE THORACIC TWO VIEWS HISTORY: [...] of the lungs and heart are unremarkable. [facility] User, Interfaces - 06/13/2019 2:46 PM EDT [...] spine without acute abnormality. Prior L1 vertebroplasty. [facility] XR SPINE THORACIC 2 VIEWSon 06-13-2019 XR [...] without acute abnormality. Prior L1 vertebroplasty. Normal [facility] HCG QUALITATIVE, URINEon HCG ( test) Ql (U) Negative [facility] URINE HCG QUALon 05-22-2019 Beta HCG ( test) Ql (U) Negative Normal [facility] XR SPINE LUMBOSACRAL AP AND LATERALon [...] Status post L1 vertebroplasty. Suspected cholelithiasis. Normal [facility] XR SPINE THORACIC 2 VIEWSon 05-22-2019 [...] Status post L1 vertebroplasty. Suspected cholelithiasis. Normal [facility] MRSA SCREENon 05-15-2019 MRSA DNA NENITA+probe Ql (Unsp spec) Negative Normal NEGATIVE [facility] Comment on above: Performed By: #### M RSAST #### Testing performed at [address] [address] Result Comment: TEST ING PERFORMED BY PCR Testing performed at [place] [address] CBCon 05-14-2019 ABSOLUTE BAS 0.0 10*3/uL Normal 0.0-0.2 [facility] Comment on above: Performed By: #### A CBC #### Testing performed at [address] [place] [address] ABSOLUTE EOS 0.20 10*3/uL Normal 0.0-0.7 [facility] Comment on above: Performed By: #### A CBC #### Testing performed at [address] [place] [address] ABSOLUTE NEUTROPHIL COUNT 5.0 10*3/uL Normal 1.4-6.5 [facility] Comment on above: Performed By: #### A CBC #### Testing performed at [place] [address] [place] [facility] [place] [address] Basophils/100 WBC (Bld) 0.3 % Normal 0.0-2.0 [facility] Comment on above: Performed By: #### A CBC #### Testing performed at [address] [place] [address] DTYPE AUTO DIFF Normal [facility] Comment on above: Performed By: #### A CBC #### Testing performed at [address] [place] [address] Eosinophils/100 WBC (Bld) 2.4 % Normal 0.0-11.0 [facility] Comment on above: Performed By: #### A CBC #### Testing performed at [address] [address] Lymphocytes (Bld) [#/Vol] 1.90 10*3/uL Normal 1.2-3.4 [facility] Comment on above: Performed By: #### A CBC #### Testing performed at [address] [address] Lymphocytes/100 WBC (Bld) 25.2 % Normal 20.0-55.0 [facility] Comment on above: Performed By: #### A CBC #### Testing performed at [address] [address] Monocytes (Bld) [#/Vol] 0.5 10*3/uL Normal 0.0-0.7 [facility] Comment on above: Performed By: #### A CBC #### Testing performed at [address] [address] Monocytes/100 WBC (Bld) 7.0 % Normal 0.0-10.0 [facility] Comment on above: Performed By: #### A CBC #### Testing performed at [address] [address] Neutrophils/100 WBC (Bld) 65.1 % Normal 37.0-75.0 [facility] Comment on above: Performed By: #### A CBC #### Testing performed at [address] [address] Erythrocyte distribution width (RBC) [Ratio] 12.8 % Normal 11.5-14.5 [facility] Comment on above: Performed By: #### A CBC #### Testing performed at [address] [address] Hematocrit (Bld) [Volume fraction] 35.5 % Low 36.0-48.0 [facility] Comment on above: Performed By: #### A CBC #### Testing performed at [address] [address] Hemoglobin (Bld) [Mass/Vol] 12.1 g/dL Normal 12.0-16.0 [facility] Comment on above: Performed By: #### A CBC #### Testing performed at [address] [address] MCH (RBC) [Entitic mass] 27.9 pg Normal 26.0-35.0 [facility] Comment on above: Performed By: #### A CBC #### Testing performed at [address] [address] MCHC (RBC) [Mass/Vol] 34.0 g/dL Normal 27.0-37.0 [facility] Comment on above: Performed By: #### A CBC #### Testing performed at [address] [address] MCV (RBC) [Entitic vol] 81.9 fL Normal 80.0-100.0 [facility] Comment on above: Performed By: #### A CBC #### Testing performed at [address] [address] Platelet mean volume (Bld) [Entitic vol] 8.8 fL Normal 7.4-11.0 [facility] Comment on above: Performed By: #### A CBC #### Testing performed at [address] [address] Platelets (Bld) [#/Vol] 323 10*3/uL Normal 130.0-400.0 [facility] Comment on above: Performed By: #### A CBC #### Testing performed at [address] [address] RBC (Bld) [#/Vol] 4.33 10*6/uL Normal 4.0-5.4 [facility] Comment on above: Performed By: #### A CBC #### Testing performed at [address] [address] WBC (Bld) [#/Vol] 7.6 10*3/uL Normal 3.6-11.0 [facility] Comment on above: Performed By: #### A CBC #### Testing performed at [address] [address] CMP FASTINGon 05-14-2019 A:G RATIO 1.1 RATIO Low 1.3-2.2 [facility] Comment on above: Performed By: #### A CBC #### Testing performed at [address] [address] Albumin [Mass/Vol] 3.8 G/dl Normal 3.5-5.0 [facility] Comment on above: Performed By: #### A CBC #### Testing performed at [address] [address] ALP [Catalytic activity/Vol] 65 U/L Normal 38-126 [facility] Comment on above: Performed By: #### A CBC #### Testing performed at [address] [address] ALT [Catalytic activity/Vol] 20 U/L Normal 9-52 [facility] Comment on above: Performed By: #### A CBC #### Testing performed at [address] [address] AST [Catalytic activity/Vol] 22 U/L Normal 14-36 [facility] Comment on above: Performed By: #### A CBC #### Testing performed at [address] [address] Bilirubin [Mass/Vol] 0.2 mg/dL Normal 0.2-1.3 [facility] Comment on above: Performed By: #### A CBC #### Testing performed at [address] [address] Calcium [Mass/Vol] 9.1 mg/dL Normal 8.4-10.2 [facility] Comment on above: Performed By: #### A CBC #### Testing performed at [address] [address] Chloride [Moles/Vol] 103 mmol/L Normal 98-107 [facility] Comment on above: Result Comment: Charanjit lockwood note: Triglyceride levels of 600mg/dL or higher may positively bias chloride results by approximately 2.1 mmol Performed By: #### A CBC #### Testing performed at [address] [address] CO2 [Moles/Vol] 27 mmol/L Normal 22-30 [facility] Comment on above: Performed By: #### A CBC #### Testing performed at [address] [address] Creatinine [Mass/Vol] 0.66 mg/dL Low 0.7-1.2 [facility] Comment on above: Performed By: #### A CBC #### Testing performed at [address] [address] EST. GFR, >60 Normal [facility] Comment on above: Performed By: #### A CBC #### Testing performed at [address] [address] EST. GFR,Non >60 Normal [facility] Comment on above: Performed By: #### A CBC #### Testing performed at [address] [address] GFR/1.73 sq M predicted among non-blacks MDRD (S/P/Bld) [Vol rate/Area] Average GFR for 40-49 years old = 99. 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 Kidney failure, GFR = <15. The GFR estimate is not adjusted for extreme body surface area or acute process, nor has it been validated for women or ethnic groups other than and . Performed By: #### A CBC #### Testing performed at [address] [address] Glucose [Mass/Vol] 74 mg/dL Normal 70-100 [facility] Comment on above: Result Comment: NORMAL <100 mg/dL PREDIABETES 101-126 mg/dL DIABETES 126 mg/dL or higher Performed By: #### A CBC #### Testing performed at [address] [address] Potassium [Moles/Vol] 3.6 mmol/L Normal 3.5-5.1 [facility] Comment on above: Performed By: #### A CBC #### Testing performed at [address] [address] Protein [Mass/Vol] 7.2 g/dL Normal 6.3-8.2 [facility] Comment on above: Performed By: #### A CBC #### Testing performed at [address] [address] Sodium [Moles/Vol] 139 mmol/L Normal 137-145 [facility] Comment on above: Performed By: #### A CBC #### Testing performed at [address] [address] Urea nitrogen [Mass/Vol] 9 mg/dL Normal 7-20 [facility] Comment on above: Performed By: #### A CBC #### Testing performed at [address] [address] PROTIMEon 05-14-2019 INR Coag (PPP) [Relative time] 0.85 {INR} Low 0.87-1.13 [facility] Comment on above: Result Comment: 2.0- 3.0 THERAPEUTIC RANGE 2.5-3.5 PROSTHETIC VALVE RANGE Performed By: #### A CBC #### Testing performed at [address] [address] PT Coag (PPP) [Time] 9.3 s Low 10.0-13.0 [facility] Comment on above: Performed By: #### A CBC #### Testing performed at [address] [address] PTTon 05-14-2019 aPTT Coag (Bld) [Time] 25.2 s Normal 24.2-28.6 [facility] Comment on above: Result Comment: CARDIAC AND PE/DVT THERAPUTIC RANGE 43-66 SEC VASCULAR/THREATENED LIMB THERAPUTIC RANGE 49-75 SEC Performed By: #### A CBC #### Testing performed at [facility] [address] [place] [address] URINE MACROSCOPICon 05-14-20 19 Bilirubin Ql (U) Negative Normal NEGATIVE [facility] Clarity (U) CLEAR Normal CLEAR [facility] Color (U) YELLOW Normal YELLOW [facility] Glucose Ql (U) Negative Normal NEGATIVE [facility] pH (U) [pH] High 5.0-7.0 [facility] Protein (U) [Mass/Vol] Negative Normal NEGATIVE [facility] URINE HEMOGLOBIN TRACE-INTACT Abnormal NEGATIVE [facility] URINE KETONE Negative Normal NEGATIVE [facility] URINE LEUKOTEST Negative Normal NEGATIVE [facility] URINE NITRATES Negative Normal NEGATIVE [facility] URINE SPEC GRAVITY 1.020 Normal 1.010-1.025 [facility] Urobilinogen Qn (U) 1.0 {Ervin'U}/dL Normal 0.2-1.0 [facility] URINE MICROSCOPICon 05-14-20 19 Bacteria LM.HPF (Urine sed) [#/Area] TRACE Abnormal NEGATIVE [facility] Casts LM.LPF (Urine sed) [#/Area] NONE Normal NONE [facility] CRYSTAL NONE Normal NONE [facility] Epithelial cells LM.HPF (Urine sed) [#/Area] 5 TO 10 Normal [facility] Mucus Ql (Urine sed) Negative Normal NEGATIVE [facility] RBC (U) [#/Vol] 1 TO 5 Normal NEGATIVE [facility] URINE COMMENT CULTURE CRITERIA NOT MET, NO CULTURE PERFORMED. Normal [facility] WBC (U) [#/Vol] Negative Normal NEGATIVE [facility] XR CHEST PA AND LATERALon XR CHEST [...] abnormality. IMPRESSION: No acute cardiopulmonary process. Normal [facility] IMPRESSION: No acute cardiopulmonary process. [facility] EXAM: XR CHEST PA AN D LATERAL HISTORY: Preop. COMPARISON: None. TECHNIQUE: Frontal and lateral views of the chest. FINDINGS: Cardiac silhouette and mediastinal contours are normal. Lungs are expanded and appear clear with no airspace consolidation or pleural effusion. Pulmonary vascularity appears within normal limits. No obvious acute osseous abnormality. [facility] User, Interfaces - 05/14/2019 4:04 PM EDT EXAM: XR CHEST PA AND LATERAL HISTORY: Preop. COMPARISON: None. TECHNIQUE: Frontal and lateral views of the chest. FINDINGS: Cardiac silhouette and mediastinal contours are normal. Lungs are expanded and appear clear with no airspace consolidation or pleural effusion. Pulmonary vascularity appears within normal limits. No obvious acute osseous abnormality. IMPRESSION IMPRESSION: No acute cardiopulmonary process. [facility] LUMBAR SPINE 2 OR 3 [facility] LUMBAR SPINE 2 OR 3 [facility] Department of Radiology [address] [place] [id number] Patient Name: EVE LINDSEY : 1970 Sex: F Age: Race: Other Pt. Location: Patient Status: O Ordered Date: 11/13/2018 1:10:00 PM Completed Date: 11/13/2018 01:13 PM Requesting Provider: MARGARITO MITCHELL Attending Provider: MARGARITO MITCHELL Report Copy To: Signs & Symptoms: M54.5 Low back pain I10 History: [facility] Comments: , Views (X-RAY, LUMBAR SPINE): AP, [...] by:Tali Vazquez on 11/13/2018 2:06 PM EDT. I, Kathie Jurado, have reviewed the images and report and concur with these findings. Electronically signed by:Kathie Jurado. Transcribed by: [email or web address], User Resident: TALI PENNINGTON Electronically Signed by: KATHIE JURADO @ 11/13/2018 04:19 PM I personally read this/these film(s) with this resident Normal [facility] Comment on above: Order Comment: , Vie ws (X-RAY, LUMBAR SPINE): AP, Lateral, L5- S1 Spot , Weight Bearing?: Y , Views (X-RAY, LUMBAR SPINE): AP, Lateral, L5-S1 Spot , Weight Bearing?: Y , , , Ordering Provider - MARGARITO MITCHELL MD , LUMBAR SPINE 2 OR 3 Son LUMBAR SPINE 2 OR 3 VWS [facility] Department of Radiology [address] [place] [phone] Patient Name: EVE LINDSEY : 1970 [...] , , , Ordering Provider - MARGARITO MTICHELL MD , Exam: LUMBAR SPINE 2 OR 3 VWS LUMBAR SPINE 2 OR 3 VWS 10/02/2018 [...] findings. Electronically signed by:Cara Ross. Transcribed by: [email or web address], User Resident: TALI PENNINGTON Electronically Signed by: CARA ROSS @ 10/02/2018 04:42 PM I personally read this/these film(s) with this resident Normal The [facility] Comment on above: Order Comment: if no t done in ED No: Do not add to previous draw LUMBAR SPINE 2 OR 3 [facility] LUMBAR SPINE 2 OR 3 VWS [facility] Department of Radiology [address] [place] [phone] Patient Name: EVE LINDSEY : 1970 Sex: F Age: Race: NA Pt. Location: [id number] Patient Status: D Ordered Date: 08/20/2018 10:00:00 [...] findings. Electronically signed by:Kathie Jurado. Transcribed by: [email or web address], User Resident: IMTIAZ GAITAN Electronically Signed by: KATHIE JURADO @ 08/21/2018 05:47 PM I personally read this/these film(s) with this resident Normal The [facility] Comment on above: Order Comment: if no t done in ED No: Do not add to previous draw BASIC METABOLIC PANELon Calcium mass conc 8.7 mg/dL Normal 8.6-10.3 The [facility] Comment on above: Order Comment: if no t done in ED No: Do not add to previous draw Performed By: #### 1 0070, 46189, 47872, 00236 #### [facility] [address] [place] [address], [place] Chloride molar conc 102 mmol/L Normal 98-107 The [facility] Comment on above: Order Comment: if no t done in ED No: Do not add to previous draw Performed By: #### 1 0070, 14712, 40750, 22656 #### [facility] [address] [place] [address], [place] CO2 molar conc 26 mmol/L Normal 21-31 The [facility] Comment on above: Order Comment: if no t done in ED No: Do not add to previous draw Performed By: #### 1 0070, 32789, 81364, 03477 #### [facility] [address] [place] [address], [place] Creatinine mass conc 0.51 mg/dL Low 0.60-1.20 [facility] Comment on above: Order Comment: if no t done in ED No: Do not add to previous draw Performed By: #### 1 0070, 60911, 02913, 90033 #### [facility] [address] [place] [address], [place] GFR/1.73 sq M predicted among blacks MDRD vol rate/area (S/P/Bld) mL/min/{1.73_m2} Normal >60 The [facility] Comment on above: Order Comment: if no t done in ED No: Do not add to previous draw Performed By: #### 1 0070, 53817, 77683, 51856 #### [facility] [address] [place] [address], [place] GFR/1.73 sq M predicted among non-blacks MDRD vol rate/area (S/P/Bld) mL/min/{1.73_m2} Normal >60 [facility] Comment on above: Order Comment: if no t done in ED No: Do not add to previous draw Performed By: #### 1 0070, 55176, 25636, 38821 #### [facility] [address] [place] [address], [facility] Glucose mass conc 82 mg/dL Normal 70-100 [facility] Comment on above: Order Comment: if no t done in ED No: Do not add to previous draw Performed By: #### 1 0070, 54272, 67632, 81890 #### [facility] [address] [place] [address], [facility] Potassium molar conc 4.1 mmol/L Normal 3.5-5.1 [facility] Comment on above: Order Comment: if no t done in ED No: Do not add to previous draw Performed By: #### 1 0070, 39715, 72867, 36140 #### [facility] [address] [place] [address], [facility] Sodium molar conc 133 mmol/L Low 136-145 [facility] Comment on above: Order Comment: if no t done in ED No: Do not add to previous draw Performed By: #### 1 0070, 09968, 61928, 82595 #### [facility] [address] [place] [address], [facility] Urea nitrogen mass conc 7 mg/dL Normal 7-25 The [facility] Comment on above: Order Comment: if no t done in ED No: Do not add to previous draw Performed By: #### 1 0070, 44883, 29851, 28228 #### [facility] [address] [place] [address], [facility] CBC W/DIFFon 08-19-2018 ABS BASOPHILS 0.0 10*3/uL Normal 0.0-0.2 The [facility] Comment on above: Order Comment: if no t done in ED No: Do not add to previous draw Performed By: #### 1 0070, 90062, 51222, 87347 #### [facility] [address] [place] [address], [facility] ABS IMM GRANS 0.1 10*3/uL Normal 0.0-0.2 The [facility] sarah [facility] Comment on above: Order Comment: if no t done in ED No: Do not add to previous draw Performed By: #### 1 0070, 76690, 22953, 28477 #### [facility] [address] [place] [address], [facility] ABS NEUTROPHILS 12.3 10*3/uL High 1.6-7.6 [facility] Comment on above: Order Comment: if no t done in ED No: Do not add to previous draw Performed By: #### 1 0070, 41604, 06411, 79205 #### [facility] [address] Basophils #/vol (Bld) 0.1 % Normal 0.0-1.0 The [facility] Comment on above: Order Comment: if no t done in ED No: Do not add to previous draw Performed By: #### 1 0070, 59062, 29205, 31661 #### [facility] [address] [place] [address], [facility] Eosinophils #/vol (Bld) 0.0 10*3/uL Normal 0.0-0.5 The [facility] Comment on above: Order Comment: if no t done in ED No: Do not add to previous draw Performed By: #### 1 0070, 62994, 80411, 46070 #### [facility] [address] [facility] [place] [address], [facility] Eosinophils/100 WBC (Bld) 0.1 % Normal 0.0-6.0 The [facility] Comment on above: Order Comment: if no t done in ED No: Do not add to previous draw Performed By: #### 1 0070, 72525, 72965, 02504 #### [facility] [address] [place] [address], [facility] Erythrocyte distribution width Ratio (RBC) 12.0 % Normal 11.5-15.0 [facility] Comment on above: Order Comment: if no t done in ED No: Do not add to previous draw Performed By: #### 1 0070, 32137, 77616, 78463 #### [facility] [address] [place] [id number], [facility] Hematocrit Volume Fraction (Bld) 37.9 % Normal 36.0-45.0 The [facility] Comment on above: Order Comment: if no t done in ED No: Do not add to previous draw Performed By: #### 1 0070, 44337, 34459, 96866 #### [facility] [address] [place] [address], [facility] Hemoglobin mass conc (Bld) 12.7 g/dL Normal 12.0-15.0 The [facility] Comment on above: Order Comment: if no t done in ED No: Do not add to previous draw Performed By: #### 1 0070, 79481, 65427, 70653 #### [facility] [address] [place] [address], [facility] IMMATURE GRANS 0.4 % Normal 0.0-1.0 The [facility] Comment on above: Order Comment: if no t done in ED No: Do not add to previous draw Performed By: #### 1 0070, 63390, 42630, 81297 #### [facility] [address] [place] [address], [facility] Lymphocytes #/vol (Bld) 0.8 10*3/uL Low 1.2-4.0 The [facility] Comment on above: Order Comment: if no t done in ED No: Do not add to previous draw Performed By: #### 1 0070, 33233, 53004, 65947 #### [facility] [address] Lymphocytes/100 WBC (Bld) 5.9 % Low 20.0-45.0 The [facility] Comment on above: Order Comment: if no t done in ED No: Do not add to previous draw Performed By: #### 1 0070, 23040, 83485, 63328 #### [facility] [address] [place] [address], [facility] MCH Entitic mass (RBC) 27.0 pg Normal 27.0-33.0 The [facility] Comment on above: Order Comment: if no t done in ED No: Do not add to previous draw Performed By: #### 1 0070, 17012, 41048, 61524 #### [facility] [address] MCHC mass conc (RBC) 33.5 g/dL Normal 32.0-35.0 The [facility] Comment on above: Order Comment: if no t done in ED No: Do not add to previous draw Performed By: #### 1 0070, 26968, 88728, 48397 #### [facility] [address] MCV Entitic volume (RBC) 80.6 fL Low 82.0-98.0 The [facility] Comment on above: Order Comment: if no t done in ED No: Do not add to previous draw Performed By: #### 1 0070, 98993, 98213, 86552 #### [facility] [address] [place] [address], [facility] Monocytes #/vol (Bld) 0.6 10*3/uL Normal 0.1-1.0 The [facility] Comment on above: Order Comment: if no t done in ED No: Do not add to previous draw Performed By: #### 1 0070, 21991, 71291, 30720 #### [facility] [address] [place] [address], [facility] MONOS 4.3 % Low 5.0-12.0 The [facility] Comment on above: Order Comment: if no t done in ED No: Do not add to previous draw Performed By: #### 1 0070, 26509, 06715, 19649 #### [facility] [address] [place] [address], [facility] Neutrophils/100 WBC (Bld) 89.2 % High 40.0-72.0 [facility] Comment on above: Order Comment: if no t done in ED No: Do not add to previous draw Performed By: #### 1 0070, 19215, 18276, 32503 #### [facility] [address] [place] [address], [facility] Nucleated RBC/100 WBC Ratio (Bld) 0 % Normal 0-0 [facility] Comment on above: Order Comment: if no t done in ED No: Do not add to previous draw Performed By: #### 1 0070, 98453, 49215, 24753 #### [facility] [address] [place] [address], [place] PLAT CNT 355 10*3/uL Normal 150-400 The [facility] Comment on above: Order Comment: if no t done in ED No: Do not add to previous draw Performed By: #### 1 0070, 05565, 17449, 48492 #### [facility] [address] [place] [address], [facility] RBC #/vol (Bld) 4.70 10*6/uL Normal 3.80-5.00 [facility] Comment on above: Order Comment: if no t done in ED No: Do not add to previous draw Performed By: #### 1 0070, 06372, 84873, 13037 #### [facility] [address] [place] [address], [place] WBC #/vol (Bld) 13.83 10*3/uL High 4.00-10.[address] [facility] Comment on above: Order Comment: if no t done in ED No: Do not add to previous draw Performed By: #### 1 0070, 00457, 81693, 29[address] #### [place] [address], [facility] CT 3D CERVICAL SPINE WO CONT RASTon 08-19-2018 CT 3D CERVICAL SPINE WO CONTRAST [facility] Department of Radiology [address] [place] [phone] Patient Name: EVE LINDSEY : 1970 Sex: F Age: Race: NA Pt. Location: [id number] Patient Status: I Ordered Date: 08/18/2018 9:10:00 [...] head were obtained without IV contrast. (accession [id number]), Axial CT images of the spine were obtained without IV contrast. (accession [id number]) TECHNIQUE: Multi detector CT axial slices of [...] malalignment Electronically signed by:Cara Ross. Transcribed by: [email or web address], User Resident: Electronically Signed by: CARA ROSS @ 08/19/2018 09:21 AM Normal [facility] Comment on above: Order Comment: if no t done in ED No: Do not add to previous draw CT ABDOMEN AND PELVIS WO CON TRASTon 08-19-2018 CT ABDOMEN AND PELVIS WO CONTRAST [facility] Department of Radiology [address] [place] [phone] Patient Name: EVE LINDSEY : 1970 Sex: F Age: Race: NA Pt. Location: [id number] Patient Status: I Ordered Date: 08/18/2018 9:10:00 [...] trauma. Electronically signed by:Liu Monroe. Transcribed by: [email or web address], User Resident: Electronically Signed by: LIU MONROE @ 08/19/2018 06:42 AM Normal [facility] Comment on above: Order Comment: Other , trauma CT BRAIN WO CONTRASTon 08-19 CT BRAIN WO CONTRAST [facility] Department of Radiology [address] [place] [phone] Patient Name: EVE LINDSEY : 1970 Sex: F Age: Race: NA Pt. Location: [id number] Patient Status: I Ordered Date: 08/18/2018 9:10:00 [...] head were obtained without IV contrast. (accession [id number]), Axial CT images of the spine were obtained without IV contrast. (accession [id number]) TECHNIQUE: Multi detector CT axial slices of [...] malalignment Electronically signed by:Cara Ross. Transcribed by: [email or web address], User Resident: Electronically Signed by: CARA King SONNY @ 08/19/2018 09:21 AM Normal [facility] Comment on above: Order Comment: if no t done in ED No: Do not add to previous draw CT CHEST WO CONTRASTon 08-19 CT CHEST WO CONTRAST [facility] Department of Radiology [address] [place] [phone] Patient Name: EVE LINDSEY : 1970 Sex: F Age: Race: NA Pt. Location: [id number] Patient Status: I Ordered Date: 08/18/2018 9:10:00 [...] findings.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
== END 2024-10-14 10:01 | disposition home or self-care (01) ==
LOC: PST 10:00
PROVIDERS: PCP Family Medicine; Visit Provider Urology
DX: Z01.818 Encounter for other preprocedural examination (principal); N20.1 Calculus of ureter

== ENCOUNTER 2024-10-16 12:54 | Day surgery (SDC) | payer OTHER, SELFPAY ==
[2024-10-16] VITALS (9 sets, daily range): BP systolic 116–133; BP diastolic 75–81; PULSE 84–109; TEMP 36.3–36.6; O2SAT 97–100; BMI 17.9
[2024-10-16 13:10] LABS: Basophils Percent Auto 0.4 % (0.2-2.0); Eosinophils Absolute Auto 0.1 10^3/uL (0.0-0.7); Eosinophils Percent Auto 1.4 % (0.9-7.0); Hemoglobin 11.6 g/dL (12.0-16.0); Lymphocytes Absolute Auto 0.9 10^3/uL (1.2-3.8); Lymphocytes Percent Auto 15.4 % (20.5-60.0); Mean Corpuscular HGB Conc 32.2 g/dL (29.9-35.2); Mean Corpuscular Hemoglobin 28.2 pg (26.7-34.0); Mean Corpuscular Volume 87.4 fL (81.0-99.0); Mean Platelet Volume 9.8 fL (9.5-13.5); Monocytes Absolute Auto 0.4 10^3/uL (0.3-0.8); Monocytes Percent Auto 6.7 % (1.7-12.0); Neutrophils Absolute Auto 4.3 10^3/uL (1.4-6.5); Neutrophils Percent Auto 76.1 % (43.0-75.0); Platelet Count 230 10^3/uL (150-450); Red Blood Count 4.12 10^6/uL (4.20-5.40); Red Cell Distribution Width 12.4 % (11.0-15.0); White Blood Count 5.7 10^3/uL (4.0-11.0)
[2024-10-16 13:29] LABS: HCG Qualitative NEGATIVE (NEGATIVE); Internal Control Within Normal Limits
[2024-10-16 13:31] LABS: INR 0.97; Partial Thromboplastin Time 23.7 sec (22.3-36.2); Prothrombin Time 10.3 sec (9.0-11.6)
[2024-10-16 13:35] LABS: Anion Gap 11.7; BUN Creatinine Ratio 13.9; Calcium 9.1 mg/dL (8.5-10.1); Carbon Dioxide 30.1 mmol/L (21.0-32.0); Chloride 103 mmol/L (98-107); Estimated GFR (African America >60 (>=60 mL/min/1.73m^2); Estimated GFR (Non-African Ame >60 (>=60 mL/min/1.73m^2); Glucose 81 mg/dL (74-106); Potassium 3.8 mmol/L (3.5-5.1); Sodium 141 mmol/L (136-145)
[2024-10-16] MEDS: FAMOTIDINE/PF 20 MG/2 ML VIAL IV (13:46)
[2024-10-16] MEDS: CEFAZOLIN SODIUM 2 GM/50 ML D5W PREMIX IV (14:31)
[2024-10-16] MEDS: LACTATED RINGER'S SOLUTION 1,000 ML 50 ML IV (14:31)
--- NOTE | 2024-10-16 15:56 | P.URON_ITS ---
Urology Surgery Operative Note Operative Note Procedure Date: 10/16/24 Time Out Performed: yes Pre-op Diagnosis: Right right ureteral calculus Post-op Diagnosis: same as pre-op Procedures performed: 1. Urethral dilation to 30 Kuwaiti. 2. Cystoscopy. 3. Right ureteral dilation. 4. Right ureteroscopy. 5. Thulium laser lithotripsy of right ureteral calculus. 6. Stone fragment basket extraction. 7. Placement of 6 Kuwaiti variable length right ureteral stent Anesthesia: General-LMA Primary Surgeon: Paul Herr Complications: None Estimated blood loss (mL): 5 Findings: 1. Significant urethral stenosis. 2. Right ureteral stenosis. Specimens: Right ureteral calculus fragments Drains: 6 Kuwaiti variable length right ureteral stent Indications for Procedures: This lady has a 6 mm right ureteral calculus for which she underwent ESWL a few weeks ago. She had minimal fragmentation. There was some migration of the stone caudad. Her stone is in the lower third of the ureter and she is having pain every day. She now presents for definitive ureteroscopic laser lithotripsy and probable right stent placement. She has signed an informed consent after risks were explained. Detailed description of Procedure: The patient was brought to the operating room and placed on the operating room table in the supine position. SCDs were placed on the lower extremities and turned on and functioning during the entire case. Timeout was done by all parties in the room. We all agreed upon the patient's identification and the planned procedures for this patient. Genn. anesthesia was then administered. The patient was then repositioned into the modified dorsal lithotomy position. All pressure points were satisfactorily padded. Genitalia were sterilely prepped and draped in usual fashion. I started by attempting to pass a 22 [place]i Olympus cystoscope per urethra and into the bladder but was unable due to urethral stenosis. I then used [place] sounds and dilated her urethra from 18 [place]i up to 30 Kuwaiti. I then passed the scope into the bladder. Careful panendoscopy in the bladder revealed no evidence of any tumors, lesions or stones. Using fluoroscopy I could clearly see her stone in the lower third of the right ureter under the pelvic brim. I then passed a wire through the scope and up the right ureter. The wire buckled against the stone but after numerous attempts it then went beyond the stone up into the kidney. Cloudy urine E flux down into the bladder. I then rigidly dilated the right ureter with 10 Kuwaiti dilator. The cystoscope was removed and the semirigid ureteroscope was passed into the bladder and up the right ureter adjacent to the wire. A 200 Angstrom laser fiber was then used and I began fragmenting the stone at 8 W continuously with the thulium laser. The stone was hard but it did fragment into several pieces. A 0 tip nitinol basket was used to engage pieces and extract them down and dumped them in the base of the bladder. I went up and down the ureter numerous times extracting stone pieces until the right ureter was free of stone. The ureteroscope was removed. The cystoscope was passed over the wire into the bladder and a 6 [place]i variable length stent was passed over the wire into the kidney. The wire was removed and there were good curls in the kidney and in the bladder. The Ilich evacuator was then used to get all the stone pieces out from the base of the bladder. These were sent for stone analysis. The bladder was drained of its contents and the scope was then removed. She was then transferred to a [facility] bed and wheeled to PACU in stable condition. She will be discharged to home later today with a prescription for Keflex 500 mg daily #14 and gemtesa 75 mg daily #14.
[2024-10-16] MEDS: SOLIFENACIN SUCCINATE 10 MG TABLET PO (16:53)
== END 2024-10-16 17:06 | disposition home or self-care (01) ==
PROVIDERS: PCP Family Medicine; Visit Provider Urology
PROC: (CPT 918; principal; 2024-10-16 14:00)
DX: N20.1 Calculus of ureter (principal); Q62.10 Congenital occlusion of ureter, unspecified; N35.92 Unspecified urethral stricture, female; F32.A Depression, unspecified; F41.9 Anxiety disorder, unspecified; E78.5 Hyperlipidemia, unspecified; K21.9 Gastro-esophageal reflux disease without esophagitis; Z79.899 Other long term (current) drug therapy; C50.911 Malignant neoplasm of unspecified site of right female breast
CPT/HCPCS: 52356; 36415; 76000; 80048; 82365; 84703; 85025; 85610; 85730; 99999; J0690; J1100; J1885; J2250; J2405; J2704; J3010; J3490